=== PATIENT | female | born 1995 | race Hispanic/Latino ===

== ENCOUNTER 2018-04-27 15:42 | Emergency (ER) | payer OTHER ==
--- OUTSIDE RECORDS SUMMARY | 2018-04-27 15:44 | XMS REPORT ---
:1995 Author Organization eClinicalWorks Care Team Providers Name Role Phone Amelia Gibbons Provider Role Unavailable Allergies, Adverse Reactions, Alerts Substance Reaction Event Type N.K.D.A. Info Not Available Non Drug Allergy Problems Problem Type Condition Code Onset Dates Condition Status Assessment Obesity (BMI 30.0-34.9) E66.9 Active Assessment Hypercalcemia E83.52 Active Assessment Vitamin D deficiency E55.9 Active Problem Obesity (BMI 30.0-34.9) E66.9 Active Problem Hypercalcemia E83.52 Active Problem Vitamin D deficiency E55.9 Active Assessment Hyperlipidemia, unspecified E78.5 Active hyperlipidemia type Assessment Elevated LFTs R94.5 Active Problem Hyperlipidemia, unspecified E78.5 Active hyperlipidemia type Problem Elevated LFTs R94.5 Active Medications Medication Code Code Instructions Start End Status Dosage System Date Date Gemfibrozil [facility] 22602297111 600 MG Orally Active 1 tablet Twice a day Nizoral [facility] 91159006686 2 % Externally Active not defined Atorvastatin ND 93754432850 20 mg Orally March 15, Active 1 tablet in Calcium Once a day 2018 evening for high cholesterol Vitamin D ND 20835747876 38524 UNIT March 15Jun Active 1 capsule for (Ergocalciferol Orally Once 2017 12, low vitamin d ) weekly 2018 level Polymyxin [facility] 07735369108 59040-7.1 Active 1 drop into B-Trimethoprim UNIT/ML affected eye Ophthalmic Four times a day Results No Known Results Summary Purpose eClinicalWorks Submission
[2018-04-27] MEDS ORDERED: ONDANSETRON 4 MG/2 ML VIAL ONE (17:09)
[2018-04-27] MEDS ORDERED: DIPHENHYDRAMINE 50 MG/ML VIAL ONE (17:09)
[2018-04-27] MEDS ORDERED: MORPHINE 4 MG/ML SYR ONE (17:09)
[2018-04-27] MEDS ORDERED: NA CHLORIDE 0.9% 1,000 ML ONE (17:09)
[2018-04-27 17:30] LABS: Absolute Lymphocytes (CBC) 1.7 K/uL (0.7-4.9); Absolute Monocytes 0.4 K/uL (0.1-1.3); Absolute Neutrophil 3.8 K/uL (1.8-8.0); Basophils % 0.3 % (0-1.3); Eosinophils % 1.1 % (0-4.4); Hematocrit 47.3 % (36.0-45.0); Lymphocytes % 28.3 % (15.3-44.8); MCH 28.5 pg (27.0-35.0); MCV 87.5 fL (80-100); MPV 9.5 fL (7.6-11.3); RBC Red Blood Cell Count 5.41 M/uL (3.86-4.86)
[2018-04-27 17:36] LABS: Albumin 4.5 g/dL (3.4-5.0); Bilirubin Direct 0.2 mg/dL (0-0.2); Bilirubin Total 0.8 mg/dL (0.2-1.0); Potassium 3.6 mmol/L (3.5-5.1); Protein, Total 8.5 g/dL (6.4-8.2)
--- NOTE | 2018-04-27 19:36 | RAD REPORT ---
EXAM DESCRIPTION: CTAbdomen Pelvis W Contrast - 04/27/2018 7:16 pm CLINICAL HISTORY: Abdominal pain. lower abdomen pain COMPARISON: Abdomen 1 View (KUB) dated 08/24/2017 TECHNIQUE: Biphasic CT imaging of the abdomen and pelvis was performed with 100 ml non-ionic IV cont rast. All CT scans are performed using dose optimization technique as appropriate and may include automated exposure control or mA/KV adjustment according to patient size. FINDINGS: The lung bases are clear. The liver, spleen, pancreas, adrenal glands and kidneys are within normal limits. Cholecystectomy cli ps. No bowel obstruction, free air, free fluid or abscess. Significant fecal retention is seen in the rec tosigmoid colon. Fluid-filled and mildly dilated terminal ileum is also seen. The appendix is normal. No evidence of significant lymphadenopathy. No suspicious bony findings. Endometrial canal is fluid-filled. IMPRESSION: Prominent rectosigmoid fecal retention.
--- NOTE | 2018-04-27 19:58 | EDPHYS ---
Physician Documentation [facility] Name: Kita Sunshine Age: 22 yrs Sex: Female : 1995 Arrival Date: 04/27/2018 Time: 15:52 Bed 18 Private MD: Mauri Wu HPI: 04/27 16:30 This 22 yrs old Female presents to ER via Ambulatory with complaints of cp Abdominal Pain. 16:30 The patient presents with abdominal pain in the lower abdomen. Onset: The cp symptoms/episode began/occurred yesterday. The symptoms do not radiate. Associated signs and symptoms: Pertinent positives: constipation, nausea, Pertinent negatives: diarrhea, fever, vomiting. 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 - Social history:: Smoking status: Patient/guardian denies using tobacco. - Ebola Screening: : Patient denies travel to an Ebola-affected area in the 21 days before illness onset. ROS: 16:30 Constitutional: Negative for body aches, chills, fever, poor PO intake. cp 16:30 Cardiovascular: Negative for chest pain, edema, palpitations. 16:30 Respiratory: Negative for cough, shortness of breath, wheezing. 16:30 Abdomen/GI: Positive for abdominal pain, nausea, constipation, Negative for diarrhea, anorexia. 16:30 Back: Negative for pain at rest, pain with movement, radiated pain. 16:30 Skin: Negative for cellulitis, rash. 16:30 All other systems are negative. Exam: 16:35 Constitutional: The patient appears in no acute distress, alert, awake, non-toxic, well cp developed, well nourished, uncomfortable. 16:35 Head/Face: Normocephalic, atraumatic. cp 16:35 Eyes: Periorbital structures: appear normal, Conjunctiva: normal, no exudate, no injection, Sclera: no appreciated abnormality, Lids and lashes: appear normal, bilaterally. 16:35 ENT: External ear(s): are unremarkable, Ear canal(s): are normal, clear, TM's: bulging, is not appreciated, bilaterally, dullness, bilaterally, erythema, is not appreciated, bilaterally, Nose: is normal, Mouth: Lips: moist, Oral mucosa: pink and intact, moist, Posterior pharynx: is normal, airway is patent, no erythema, no exudate. 16:35 Neck: ROM/movement: is normal, is supple, without pain, no range of motions limitations, no nuchal rigidity. 16:35 Chest/axilla: Inspection: normal, Palpation: is normal, no crepitus, no tenderness. 16:35 Cardiovascular: Rate: tachycardic, Rhythm: regular. 16:35 Respiratory: the patient does not display signs of respiratory distress, Respirations: normal, no use of accessory muscles, no retractions, no splinting, no tachypnea, labored breathing, is not present, Breath sounds: are clear throughout, no decreased breath sounds, no stridor, no wheezing. 16:35 Abdomen/GI: Inspection: abdomen appears normal, Bowel sounds: active, all quadrants, Palpation: soft, in all quadrants, moderate abdominal tenderness, in the umbilical area, right lower quadrant and left lower quadrant, rebound tenderness, is not appreciated, involuntary guarding, is not appreciated. 16:35 Back: pain, is absent, ROM is normal. 16:35 Skin: cellulitis, is not appreciated, no rash present. 16:35 Neuro: Orientation: to person, place \T\ time. Mentation: lucid, able to follow commands, Cerebellar function: is grossly normal, Motor: moves all fours, strength is normal, Sensation: is normal. Vital Signs: 16:06 BP 112 / 78; Pulse 101; Resp 18; Temp 98.8(TE); Pulse Ox 95% on R/A; Weight 79.38 kg aj1 (R); Height 5 ft. 0 in. (152.40 cm); 17:00 BP 119 / 89; Pulse 105; Resp 18; Pulse Ox 93% on R/A; em 18:16 BP 112 / 73; Pulse 88; Resp 16; Pulse Ox 99% on R/A; Pain 3/10; em 19:45 BP 99 / 76; Pulse 98; Resp 20; Pulse Ox 98% on R/A; lp1 16:06 Body Mass Index 34.18 (79.38 kg, 152.40 cm) aj1 MDM: 16:21 Patient medically screened. cp 19:53 ED course: VSS. Nurse reports patient in restroom having bowel movement. Will discharge cp to home for continued monitoring. 19:57 Data reviewed: vital signs, nurses notes, lab test result(s), radiologic studies, CT cp scan. 19:57 Counseling: I had a detailed discussion with the patient and/or guardian regarding: the cp historical points, exam findings, and any diagnostic results supporting the discharge/admit diagnosis, lab results, radiology results, to return to the emergency department if symptoms worsen or persist or if there are any questions or concerns that arise at home. Response to treatment: the patient's symptoms have markedly improved after treatment, and as a result, I will discharge patient. Special discussion: Based on the patient's Hx, exam, and Dx evaluation, there is no indication for emergent surgery or inpatient Tx. It is understood by the patient/guardian that if the Sx's persist or worsen they need to return immediately for re-evaluation. 04/27 16:32 Order name: Amylase, Serum; Complete Time: 18:15 04/27 16:32 Order name: Basic Metabolic Panel; Complete Time: 18:15 cp 04/27 16:32 Order name: CBC with Diff; Complete Time: 18:15 cp 04/27 16:32 Order name: Creatinine for Radiology; Complete Time: 18:15 cp 04/27 16:32 Order name: Hepatic Function; Complete Time: 18:15 04/27 16:32 Order name: Lipase; Complete Time: 18:15 04/27 16:32 Order name: Urine Microscopic Only 04/27 18:15 Order name: CT Abd/Pelvis - W/Contrast: no oral contrast; Complete Time: 19:41 04/27 18:47 Order name: Urine Dipstick--Ancillary (enter results) 04/27 18:47 Order name: Urine --Ancillary (enter results) 04/27 18:47 Order name: Urine Dipstick-Ancillary [facility] 04/27 18:47 Order name: Urine --Ancillary [facility] 04/27 20:07 Order name: Urine Culture [facility] 04/27 16:32 Order name: Urine Test (obtain specimen); Complete Time: 19:05 cp 04/27 16:32 Order name: IV Saline Lock; Complete Time: 18:17 cp 04/27 16:32 Order name: Labs collected and sent; Complete Time: 18:18 cp 04/27 16:32 Order name: Urine Dipstick-Ancillary (obtain specimen); Complete Time: 19:04 cp Administered Medications: 17:19 Drug: Benadryl 12.5 mg Route: IVP; Site: left antecubital; hj 18:16 Follow up: Response: No adverse reaction em 17:19 Drug: morphine 2 mg Route: IVP; Site: left antecubital; hj 18:16 Follow up: Response: No adverse reaction; Pain is decreased em 17:20 Drug: NS 0.9% 1000 ml Route: IV; Rate: 1 bolus; Site: left antecubital; hj 19:30 Follow up: IV Status: Completed infusion lp1 17:20 Drug: Zofran 4 mg Route: IVP; Site: left antecubital; hj 18:16 Follow up: Response: No adverse reaction em 19:55 CANCELLED (Physician Discretion): Fleet Enema [address] once; may repeat once cp 19:55 CANCELLED (Physician Discretion): Magnesium Citrate Liquid 300 ml PO once cp 19:55 CANCELLED (Physician Discretion): NS 0.9% 1000 ml IV at 1 bolus Per protocol; 1000 mL cp bolus 20:41 Drug: Rocephin 1 grams Route: IV; Rate: calculated rate; Site: left antecubital; lp1 20:59 Follow up: Response: No adverse reaction; IV Status: Completed infusion lp1 Disposition: 20:30 Chart complete. cp Disposition: 04/27/18 19:58 Discharged to Home. Impression: Constipation, Urinary tract infection, site not specified, Fecal impaction. - Condition is Stable. - Discharge Instructions: Constipation, Adult, Urinary Tract Infection, Adult, Fecal Impaction. - Prescriptions for Keflex 500 mg Oral Capsule - take 1 capsule by ORAL route every 12 hours for 10 days; 20 capsule. Miralax 17 gram/dose Oral - take 1 packet by ORAL route once daily for 10 days dilute powder in 8 ounces of water or juice; 10 packet. - Medication Reconciliation Form, Thank You Letter, Antibiotic Education, Prescription Opioid Use form. - Follow up: Private Physician; When: 2 - 3 days; Reason: Recheck today's complaints. - Problem is new. - Symptoms have improved. Addendum: 04/30/2018 10:34 Co-signature as Attending Physician, Mauri Yoon MD I agree with the assessment and c andrea plan of care. Signatures: Dispatcher [employer] Radha Macedo RN RN aj1 Mauri Yoon MD MD cha Pena, Laura, RN RN lp1 Soy Carrillo RN RN Mauri Villeda PA PA Roney Treviño COMPUTER FORWARDING SYSTEM MARKUP CLERK em Corrections: (The following items were deleted from the chart) 04/27 19:55 19:[address] Fleet Enema [address] once; may repeat once ordered. cp cp :55 19:50 Magnesium Citrate Liquid 300 ml PO once ordered. cp cp :55 19:50 NS 0.9% 1000 ml IV at 1 bolus Per protocol; 1000 mL bolus ordered. cp cp 19:59 19:58 04/27/2018 19:58 Discharged to Home. Impression: Constipation; Urinary tract cp infection, site not specified. Condition is Stable. Forms are Medication Reconciliation Form, Thank You Letter, Antibiotic Education, Prescription Opioid Use. Follow up: Private Physician; When: 2 - 3 days; Reason: Recheck today's complaints. Problem is new. Symptoms have improved. cp 21:00 19:59 04/27/2018 19:58 Discharged to Home. Impression: Constipation; Urinary tract lp1 infection, site not specified; Fecal impaction. Condition is Stable. Forms are Medication Reconciliation Form, Thank You Letter, Antibiotic Education, Prescription Opioid Use. Follow up: Private Physician; When: 2 - 3 days; Reason: Recheck today's complaints. Problem is new. Symptoms have improved. cp
--- NOTE | 2018-04-27 19:58 | ER ---
Nurse's Notes [facility] Name: Kita Sunshine Age: 22 yrs Sex: Female : 1995 Arrival Date: 04/27/2018 Time: 15:52 Bed 18 Private MD: Diagnosis: Constipation;Urinary tract infection, site not specified;Fecal impaction Presentation: 04/27 16:01 Presenting complaint: Mother states: "She's been constipated, I gave her Miralax aj1 yesterday but she only got a little out so today I gave docusate before we got here, but she keeps saying her stomach's hurting" Patient reports pain to umbilical area that radiates to RLQ, LLQ. Denies N/V/D. Transition of care: patient was not received from another setting of care. Onset of symptoms was April 26, 2018. Risk Assessment: Do you want to hurt yourself or someone else? Patient reports no desire to harm self or others. Initial Sepsis Screen: Does the patient meet any 2 criteria? HR > 90 bpm. No. Patient's initial sepsis screen is negative. Does the patient have a suspected source of infection? No. Patient's initial sepsis screen is negative. Care prior to arrival: None. 16:01 Method Of Arrival: Ambulatory aj1 16:01 Acuity: KAREN 3 aj1 Triage Assessment: 16:06 General: Appears in no apparent distress. uncomfortable, Behavior is calm, cooperative, aj1 appropriate for age. Pain: Complains of pain in umbilical area Pain radiates to right lower quadrant and left lower quadrant. Neuro: Level of Consciousness is awake, alert, obeys commands. Cardiovascular: Patient's skin is warm and dry. Respiratory: Airway is patent Respiratory effort is even, unlabored, Respiratory pattern is regular, symmetrical. GI: Abdomen is round Reports lower abdominal pain, constipation, Patient currently denies diarrhea, nausea, vomiting. Derm: Skin is pink, warm \\T\\ dry. normal. 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 - Social history:: Smoking status: Patient/guardian denies using tobacco. - Ebola Screening: : Patient denies travel to an Ebola-affected area in the 21 days before illness onset. Screenin:02 Abuse screen: no apparent signs noted. Nutritional screening: No deficits noted. em Tuberculosis screening: No symptoms or risk factors identified. Fall Risk None identified. Assessment: 17:00 General: Appears in no apparent distress. uncomfortable, Behavior is cooperative, em anxious. General: pt mother reports constipation, and has taken OTC meds to help but pt c/o abdominal pain, denies fever. Pain: Complains of pain in umbilical area. Neuro: Level of Consciousness is awake, alert, obeys commands, Oriented to person, place, time. Cardiovascular: Capillary refill < 3 seconds Patient's skin is warm and dry. Respiratory: Airway is patent Respiratory effort is even, unlabored, Respiratory pattern is Breath sounds are clear bilaterally. GI: Abdomen is round non-distended, Bowel sounds present X 4 quads. Abd is soft X 4 quads Abdomen is tender to palpation in umbilical area, left upper quadrant and left lower quadrant. : No signs and/or symptoms were reported regarding the genitourinary system. EENT: No signs and/or symptoms were reported regarding the EENT system. Derm: Skin is intact, Skin is pink, warm \\T\\ dry. Musculoskeletal: Range of motion: intact in all extremities. 17:05 Reassessment: Patient appears in no apparent distress at this time. pt SPO2 dropped to em 89% while pt was sleeping, placed on NC at 3 L, SPO2 94%. 17:15 Reassessment: Patient appears in no apparent distress at this time. I agree with above iw assessment by Roney Treviño LVN. 18:00 Reassessment: Patient appears in no apparent distress at this time. Patient and/or em family updated on plan of care and expected duration. Pain level reassessed. Patient is alert, oriented x 3, equal unlabored respirations, skin warm/dry/pink. Patient states feeling better. 18:55 Reassessment: Patient appears in no apparent distress at this time. Patient and/or em family updated on plan of care and expected duration. Pain level reassessed. Patient is alert, oriented x 3, equal unlabored respirations, skin warm/dry/pink. ambulated to restroom with assistance, pending CT. 19:45 Reassessment: Patient states pain to lower abdomen, assisted to bathroom, patient had lp1 large BM at this time; Provider notified. 20:13 Reassessment: Patient states feeling better. Patient states symptoms have improved. lp1 Vital Signs: 16:06 BP 112 / 78; Pulse 101; Resp 18; Temp 98.8(TE); Pulse Ox 95% on R/A; Weight 79.38 kg aj1 (R); Height 5 ft. 0 in. (152.40 cm); 17:00 BP 119 / 89; Pulse 105; Resp 18; Pulse Ox 93% on R/A; em 18:16 BP 112 / 73; Pulse 88; Resp 16; Pulse Ox 99% on R/A; Pain 3/10; em 19:45 BP 99 / 76; Pulse 98; Resp 20; Pulse Ox 98% on R/A; lp1 16:06 Body Mass Index 34.18 (79.38 kg, 152.40 cm) aj1 ED Course: 15:52 Patient arrived in ED. as 16:05 Triage completed. aj1 16:06 Arm band placed on Patient placed in waiting room, Patient notified of wait time. aj1 16:21 Mauri Villeda PA is PHCP. cp 16:21 Mauri Yoon MD is Attending Physician. cp 16:45 Roney Treviño LVN is Primary Nurse. em 17:30 No provider procedures requiring assistance completed. Initial lab(s) drawn, by me, em sent to lab. Inserted saline lock: 22 gauge in left antecubital area, using aseptic technique. Blood collected. 18:02 Patient has correct armband on for positive identification. Bed in low position. Call em light in reach. Side rails up X2. Adult w/ patient. 18:32 Radiology exam delayed due to test not completed at this time. vr 19:16 CT Abd/Pelvis - W/Contrast: no oral contrast In Process Unspecified. EDMS 19:16 CT completed. Patient tolerated procedure well. Patient moved to CT. Patient moved back mw3 from CT. 20:58 IV discontinued, No redness/swelling at site. Pressure dressing applied. lp1 Administered Medications: 17:19 Drug: Benadryl 12.5 mg Route: IVP; Site: left antecubital; hj 18:16 Follow up: Response: No adverse reaction em 17:19 Drug: morphine 2 mg Route: IVP; Site: left antecubital; hj 18:16 Follow up: Response: No adverse reaction; Pain is decreased em 17:20 Drug: NS 0.9% 1000 ml Route: IV; Rate: 1 bolus; Site: left antecubital; hj 19:30 Follow up: IV Status: Completed infusion lp1 17:20 Drug: Zofran 4 mg Route: IVP; Site: left antecubital; hj 18:16 Follow up: Response: No adverse reaction em 19:55 CANCELLED (Physician Discretion): Fleet Enema 133 ml NV once; may repeat once cp 19:55 CANCELLED (Physician Discretion): Magnesium Citrate Liquid 300 ml PO once cp 19:55 CANCELLED (Physician Discretion): NS 0.9% 1000 ml IV at 1 bolus Per protocol; 1000 mL cp bolus 20:41 Drug: Rocephin 1 grams Route: IV; Rate: calculated rate; Site: left antecubital; lp1 20:59 Follow up: Response: No adverse reaction; IV Status: Completed infusion lp1 Outcome: 19:58 Discharge ordered by MD. cp 20:59 Discharged to home ambulatory, with family. lp1 20:59 Condition: good 20:59 Discharge instructions given to mechanical system technician, Instructed on discharge instructions, follow up and referral plans. medication usage, Demonstrated understanding of instructions, follow-up care, medications, Prescriptions given X 2. 21:00 Patient left the ED. lp1 Addendum: 05/02/2018 11:39 Addendum: Culture Results: Positive urine culture. Phone call Attempt #1 Patient is s s feeling much better. Signatures: Dispatcher [employer] EDMS Radha Miller RN RN aj1 Roney Treviño, LABOUR MARKET ECONOMIST LABOUR MARKET ECONOMIST em Natasha Murillo as Carolina Patiño, Aicha Moeller RN, RN RN ss Davis, Victoria vr Pena, Laura, RN RN lp1 Soy Carrillo RN RN hj Page, Corey, PA PA cp Willis, Michelle mw3 Corrections: (The following items were deleted from the chart) 04/27 19:13 18:55 Reassessment: Patient and/or family updated on plan of care and expected em duration. Pain level reassessed. Patient is alert, oriented x 3, equal unlabored respirations, skin warm/dry/pink. ambulated to restroom with assistance, pending CT em
[2018-04-27 20:06] LABS: Urine Bacteria 20-50 /HPF (<20); Urine Culture Reflex Order REFLEXED; Urine Mucus 1+ /HPF (NONE SEEN); Urine RBC TNTC /HPF (NONE SEEN)
[2018-04-27 20:07] LABS: Urine Blood 3+ (NEG); Urine Glucose NEGATIVE (NEG); Urine Protein 1+ (NEG); Urine Specific Gravity 1.015 (1.005-1.030); Urine pH 6.5 (5.0-7.0)
[2018-04-27] MEDS ORDERED: CEFTRIAXONE/SWI 1gm 1 GM/10 ML SYR ONE (20:20)
== END 2018-04-27 21:00 | disposition home or self-care (01) ==
LOC: ER 15:42
DX: K59.00 Constipation, unspecified (principal); N39.0 Urinary tract infection, site not specified; K56.41 Fecal impaction; E78.5 Hyperlipidemia, unspecified; F79 Unspecified intellectual disabilities
CPT/HCPCS: 36415; 74177; 80048; 80076; 81003; 81015; 81025; 82150; 83690; 85025; 87077; 87086; 87088; 87186; 96361; 96365; 96375; 99284; J0696; J2405; J7030; Q9967

== ENCOUNTER 2019-04-29 23:53 | Emergency (ER) | payer OTHER ==
--- OUTSIDE RECORDS SUMMARY | 2019-04-29 23:56 | XMS REPORT ---
:1995 Author Organization eClinicalWorks Care Team Providers Name Role Phone Amelia Gibbons Provider Role Unavailable Allergies, Adverse Reactions, Alerts Substance Reaction Event Type N.K.D.A. Info Not Available Non Drug Allergy Problems Problem Type Condition Code Onset Dates Condition Status Problem Hypercalcemia E83.52 Active Problem Elevated LFTs R94.5 Active Problem Hypersomnia G47.10 Active Problem Abdominal pain, unspecified R10.9 Active abdominal location Problem Snoring R06.83 Active Problem Vitamin D deficiency E55.9 Active Problem Obesity (BMI 30.0-34.9) E66.9 Active Problem Difficulty sleeping G47.9 Active Problem Hyperlipidemia, unspecified E78.5 Active hyperlipidemia type Assessment Vitamin D deficiency E55.9 Active Assessment Elevated LFTs R94.5 Active Assessment Depression screening Z13.31 Active Assessment Obesity (BMI 30.0-34.9) E66.9 Active Assessment Hyperlipidemia, unspecified E78.5 Active hyperlipidemia type Medications Medication Code Code Instructions Start End Status Dosage System Date Date Polymyxin [facility] 36408183611 34815-1.1 Active 1 drop into B-Trimethoprim UNIT/ML affected eye Ophthalmic Four times a day Gemfibrozil [facility] 67424854803 600 MG Orally Active 1 tablet Twice a day Nizoral [facility] 30475586904 2 % Externally Active not defined Vitamin D [facility] 32748504327 34231 UNIT Active 1 capsule (Ergocalciferol Orally Once ) weekly Atorvastatin [facility] 23575163344 20 mg Orally March 15, Active 1 tablet in Calcium Once a day 2018 evening for high cholesterol Results No Known Results Summary Purpose eClinicalWorks Submission
--- OUTSIDE RECORDS SUMMARY | 2019-04-29 23:56 | XMS REPORT ---
:1995 Author Organization eClinicalWorks Care Team Providers Name Role Phone Amelia Gibbons Provider Role Unavailable Allergies, Adverse Reactions, Alerts Substance Reaction Event Type N.K.D.A. Info Not Available Non Drug Allergy Problems Problem Type Condition Code Onset Dates Condition Status Assessment Vitamin D deficiency E55.9 Active Assessment Hyperlipidemia, unspecified E78.5 Active hyperlipidemia type Assessment Elevated LFTs R94.5 Active Assessment Obesity (BMI 30.0-34.9) E66.9 Active Problem Hyperlipidemia, unspecified E78.5 Active hyperlipidemia type Problem Elevated LFTs R94.5 Active Problem Difficulty sleeping G47.9 Active Problem Hypercalcemia E83.52 Active Problem Vitamin D deficiency E55.9 Active Problem Obesity (BMI 30.0-34.9) E66.9 Active Medications Medication Code Code Instructions Start End Status Dosage System Date Date Vitamin D3 [facility] 56171467345 23054 UNIT Jul 23Nov Active 1 capsule Orally 2017, capsule [email or web address] Atorvastatin ND 84140209739 20 mg Orally March 15, Active 1 tablet in Calcium Once a day 2017 evening for high cholesterol Polymyxin [facility] 11582860338 48499-1.1 Active 1 drop into B-Trimethoprim UNIT/ML affected eye Ophthalmic Four times a day Nizoral [facility] 19036031957 2 % Externally Active not defined Vitamin D [facility] 64413999687 11411 UNIT Active 1 capsule (Ergocalciferol Orally Once ) weekly Gemfibrozil [facility] 73888262966 600 MG Orally Active 1 tablet Twice a day Results No Known Results Summary Purpose eClinicalWorks Submission
--- OUTSIDE RECORDS SUMMARY | 2019-04-29 23:56 | XMS REPORT ---
:1995 Author Organization eClinicalWorks Care Team Providers Name Role Phone Amelia Gibbons Provider Role Unavailable Allergies, Adverse Reactions, Alerts Substance Reaction Event Type N.K.D.A. Info Not Available Non Drug Allergy Problems Problem Type Condition Code Onset Dates Condition Status Assessment Elevated LFTs R94.5 Active Assessment Hyperlipidemia, unspecified E78.5 Active hyperlipidemia type Assessment Difficulty sleeping G47.9 Active Assessment Obesity (BMI 30.0-34.9) E66.9 Active Assessment Vitamin D deficiency E55.9 Active Assessment Hypercalcemia E83.52 Active Problem Hyperlipidemia, unspecified E78.5 Active hyperlipidemia type Problem Elevated LFTs R94.5 Active Problem Difficulty sleeping G47.9 Active Problem Hypercalcemia E83.52 Active Problem Vitamin D deficiency E55.9 Active Problem Obesity (BMI 30.0-34.9) E66.9 Active Medications Medication Code Code Instructions Start End Status Dosage System Date Date Nizoral [facility] 67061944708 2 % Externally Active not defined Atorvastatin [facility] 76137838402 20 mg Orally March 15, Active 1 tablet in Calcium Once a day 2018 evening for high cholesterol Polymyxin [facility] 63633947237 30397-9.1 Active 1 drop into B-Trimethoprim UNIT/ML affected eye Ophthalmic Four times a day Vitamin D [facility] 90902073289 24380 UNIT Active 1 capsule (Ergocalciferol Orally Once ) weekly Gemfibrozil [facility] 59231296067 600 MG Orally Active 1 tablet Twice a day Results No Known Results Summary Purpose eClinicalWorks Submission
--- OUTSIDE RECORDS SUMMARY | 2019-04-29 23:56 | XMS REPORT ---
[...] Assessment Vitamin D deficiency E55.9 Active Assessment Snoring R06.83 Active Assessment Elevated LFTs R94.5 Active Assessment Obesity (BMI 30.0-34.9) E66.9 Active Assessment Abdominal pain, unspecified R10.9 Active abdominal location Assessment Hypersomnia G47.10 Active Assessment Hyperlipidemia, unspecified E78.5 Active hyperlipidemia type Medications Medication Code Code Instructions Start End Status Dosage System Date Date Polymyxin [facility] 49773735735 27670-3.1 Active 1 drop into B-Trimethoprim UNIT/ML affected eye Ophthalmic Four times a day Nizoral [facility] 86201198586 2 % Externally Active not defined Gemfibrozil [facility] 37951681460 600 MG Orally Active 1 tablet Twice a day Vitamin D [facility] 50903660850 04609 UNIT Active 1 capsule (Ergocalciferol Orally Once ) weekly Atorvastatin [facility] 66598504276 20 mg Orally March 15, Active 1 tablet in Calcium Once a day 2018 evening for high cholesterol Results No Known Results Summary Purpose eClinicalWorks Submission
--- OUTSIDE RECORDS SUMMARY | 2019-04-29 23:56 | XMS REPORT ---
:1995 Author Organization eClinicalWorks Care Team Providers Name Role Phone Amelia Gibbons Provider Role Unavailable Allergies No Known Allergies Problems Problem Type Condition Code Onset Dates Condition Status Problem Hypercalcemia E83.52 Active Problem Elevated LFTs R94.5 Active Assessment Hyperlipidemia, unspecified E78.5 Active hyperlipidemia type Problem Hypersomnia G47.10 Active Problem Abdominal pain, unspecified R10.9 Active abdominal location Problem Snoring R06.83 Active Problem Vitamin D deficiency E55.9 Active Problem Obesity (BMI 30.0-34.9) E66.9 Active Problem Difficulty sleeping G47.9 Active Problem Hyperlipidemia, unspecified E78.5 Active hyperlipidemia type Medications Medication Code Code Instructions Start End Status Dosage System Date Date Gemfibrozil [facility] 13328825388 600 MG Orally Active 1 tablet Twice a day Atorvastatin [facility] 41284915718 20 MG Orally March 15, Active 1 tablet in Calcium Once a day 2018 evening for high cholesterol Results No Known Results Summary Purpose eClinicalWorks Submission
--- NOTE | 2019-04-30 00:50 | ER ---
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 Transition of ak1 care: patient was not received from another setting of care. Onset of symptoms is unknown. Risk Assessment: Do you want to hurt yourself or someone else? Patient reports no desire to harm self or others. Initial Sepsis Screen: Does the patient meet any 2 criteria? No. Patient's initial sepsis screen is negative. Does the patient have a suspected source of infection? No. Patient's initial sepsis screen is negative. Care prior to arrival: None. 00:15 Method Of Arrival: Ambulatory ak1 00:15 Acuity: KAREN 4 ak1 Triage Assessment: 00:16 General: Appears in no apparent distress. Behavior is calm, cooperative. Pain: ak1 Complains of pain in mouth. 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 Neuro: Level of Consciousness is awake, alert, obeys commands, Oriented to person, place, time, situation, Moves all extremities. Gait is steady. Cardiovascular: No deficits noted. Respiratory: No deficits noted. GI: No signs and/or symptoms were reported involving the gastrointestinal system. : No signs and/or symptoms were reported regarding the genitourinary system. Derm: No signs and/or symptoms reported regarding the dermatologic system. Musculoskeletal: No signs and/or symptoms reported regarding the musculoskeletal system. 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 - Social history:: Smoking status: Patient/guardian denies using tobacco. - Ebola Screening: : No symptoms or risks identified at this time. Screenin:18 Abuse screen: Denies threats or abuse. Denies injuries from another. Nutritional ak1 screening: No deficits noted. Tuberculosis screening: No symptoms or risk factors identified. Fall Risk None identified. Assessment: 00:42 Reassessment: Patient appears in no apparent distress at this time. No changes from ak1 previously documented assessment. Patient and/or family updated on plan of care and expected duration. Pain level reassessed. Patient is alert, oriented x 3, equal unlabored respirations, skin warm/dry/pink. see triage assessment. 00:55 General: Appears in no apparent distress. pt with steady gait at discharged. pt and ak1 mother educated on comfort measures to use at home until pt can get in to see a dentist . Vital Signs: 00:14 BP 121 / 79; Pulse 64; Resp 16; Temp 97.6(TE); Pulse Ox 97% on R/A; Weight 86.18 kg ak1 (R); Height 5 ft. 0 in. (152.40 cm) (R); Pain 4/10; 00:56 BP 120 / 78; Pulse 83; Resp 16; Pulse Ox 100% on R/A; ak1 00:14 Body Mass Index 37.11 (86.18 kg, 152.40 cm) ak1 ED Course: 04/29 23:59 Patient arrived in ED. es 07 00:00 Amelia Gibbons MD is Private Physician. es 00:10 Loki Forde MD is Attending Physician. tw4 00:14 Maame Saleh, RN is Primary Nurse. ak1 00:16 Triage completed. ak1 00:18 Arm band placed on Patient placed in an exam room, on a stretcher, on pulse oximetry, ak1 Patient notified of wait time. 00:18 Patient has correct armband on for positive identification. Bed in low position. Call ak1 light in reach. Side rails up X 1. Adult w/ patient. Pulse ox on. NIBP on. 00:38 Amelia Gibbons MD is Referral Physician. tw4 00:42 No provider procedures requiring assistance completed. Patient did not have IV access ak1 during this emergency room visit. Administered Medications: 00:33 Drug: Collbran 5 mg-325 mg 1 tabs Route: PO; lp1 00:55 Follow up: Response: No adverse reaction ak1 Outcome: 00:39 Discharge ordered by . tw4 00:42 Condition: stable ak1 00:55 Discharged to home ambulatory, with family. ak1 00:55 Discharge instructions given to patient, family, Instructed on discharge instructions, follow up and referral plans. no drinking with medication, no driving heavy equipment, medication usage, Demonstrated understanding of instructions, follow-up care, medications, Prescriptions given X 2. 00:57 Patient left the ED. ak1 Signatures: Paula Jenkins Laura, RN RN lp1 Maame Saleh RN RN ak1 Loki Forde MD MD tw4
[2019-04-30] MEDS ORDERED: HYDROCODONE/APAP 5/325 MG TAB ONE (00:51)
--- NOTE | 2019-04-30 00:51 | EDPHYS ---
Physician Documentation [facility] Name: Kita Sunshine Age: 23 yrs Sex: Female : 1995 Arrival Date: 04/29/2019 Time: 23:59 Bed 6 Private MD: Amelia Gibbons ED Physician Loki Forde HPI: 04/30 00:32 This 23 yrs old Female presents to ER via Ambulatory with complaints of tw4 Toothache. 00:32 The patient presents with broken tooth/teeth. The problem is located in the upper right tw4 first molar. Onset: The symptoms/episode began/occurred today. Duration: The symptoms are continuous, and are unchanged since they started. Modifying factors: The symptoms are alleviated by nothing, the symptoms are aggravated by. The patient has not experienced similar symptoms in the past. 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 - Social history:: Smoking status: Patient/guardian denies using tobacco. - Ebola Screening: : No symptoms or risks identified at this time. ROS: 00:32 Constitutional: Negative for fever, chills, and weight loss, Eyes: Negative for injury, tw4 pain, redness, and discharge, Cardiovascular: Negative for chest pain, palpitations, and edema, Respiratory: Negative for shortness of breath, cough, wheezing, and pleuritic chest pain, Abdomen/GI: Negative for abdominal pain, nausea, vomiting, diarrhea, and constipation, Back: Negative for injury and pain, MS/Extremity: Negative for injury and deformity. 00:32 ENT: Positive for dental pain, Negative for ear pain, hearing loss, pulling at ears, nasal discharge, rhinorrhea. Exam: 00:32 Constitutional: This is a well developed, well nourished patient who is awake, alert, tw4 and in no acute distress. Head/Face: Normocephalic, atraumatic. 00:32 ENT: Dental exam: fractured teeth are noted, specifically the upper right first molar (#3). Vital Signs: 00:14 BP 121 / 79; Pulse 64; Resp 16; Temp 97.6(TE); Pulse Ox 97% on R/A; Weight 86.18 kg ak1 (R); Height 5 ft. 0 in. (152.40 cm) (R); Pain 4/10; 00:56 BP 120 / 78; Pulse 83; Resp 16; Pulse Ox 100% on R/A; ak1 00:14 Body Mass Index 37.11 (86.18 kg, 152.40 cm) ak1 MDM: 00:10 Patient medically screened. tw4 00:32 Differential diagnosis: dental caries, dental abscess. Data reviewed: vital signs, tw4 nurses notes. Counseling: I had a detailed discussion with the patient and/or guardian regarding: the historical points, exam findings, and any diagnostic results supporting the discharge/admit diagnosis. Medication response: norco. Response to treatment: the patient's symptoms have markedly improved after treatment, and as a result, I will discharge patient. Special discussion: I discussed with the patient/guardian in detail that at this point there is no indication for admission to the hospital. It is understood, however, that if the symptoms persist or worsen the patient needs to return immediately for re-evaluation. Administered Medications: 00:33 Drug: Acworth 5 mg-325 mg 1 tabs Route: PO; lp1 00:55 Follow up: Response: No adverse reaction ak1 Disposition: 04/30/19 00:39 Discharged to Home. Impression: Dental caries. - Condition is Stable. - Discharge Instructions: Dental Caries, Adult, Dental Pain. - Prescriptions for Ibuprofen 800 mg Oral Tablet - take 1 tablet by ORAL route every 8 hours As needed take with food; 30 tablet. Tylenol- Codeine #3 300-30 mg Oral Tablet - take 2 tablet by ORAL route every 6 hours As needed; 6 tablet. - Medication Reconciliation Form, Thank You Letter, Antibiotic Education, Prescription Opioid Use form. - Follow up: Amelia Gibbons MD; When: Upon discharge from the Emergency Department; Reason: If symptoms return, Recheck today's complaints, Continuance of care. - Problem is new. - Symptoms have improved. Signatures: Betty Bertrand RN RN lp1 Maame Saleh RN RN ak1 Loki Forde MD MD tw4 Corrections: (The following items were deleted from the chart) 00:57 00:39 04/30/2019 00:39 Discharged to Home. Impression: Dental caries. Condition is ak1 Stable. Forms are Medication Reconciliation Form, Thank You Letter, Antibiotic Education, Prescription Opioid Use. Follow up: Amelia Gibbons; When: Upon discharge from the Emergency Department; Reason: If symptoms return, Recheck today's complaints, Continuance of care. Problem is new. Symptoms have improved. tw4
== END 2019-04-30 00:57 | disposition home or self-care (01) ==
LOC: ER 23:53
DX: K02.9 Dental caries, unspecified (principal); E78.5 Hyperlipidemia, unspecified; F79 Unspecified intellectual disabilities
CPT/HCPCS: 99283

== ENCOUNTER 2020-04-13 15:29 | Emergency (ER) | payer OTHER ==
--- OUTSIDE RECORDS SUMMARY | 2020-04-13 16:52 | XMS REPORT | Continuity of Care Document ---
:1995 Author Organization [facility] t Address [address] [place] [address] Care Team Providers Name Role Phone Unavailable Unavailable Unavailable Problems Condition Condition Condition Status Onset Resolution Last Treating Co mments Source Name Details Category Date Date Treatment Clinician Date Obesity Obesity Problem Active [facility] (BMI (BMI [facility] - 30.0-34.9) 30.0-34.9) [facility] Hypercalce Hypercalce Problem Active [facility] nahun [facility]un [facility] Vitamin D Vitamin D Diagnosis Active [facility] deficiency deficiency [facility] Hyperlipid Hyperlipid Diagnosis Active [facility] emia, emia, [facility] - unspecifie unspecifie [facility] d d l hyperlipid hyperlipid Ou tpati emia type emia type ent Clinics Elevated Elevated Diagnosis Active [facility] LFTs LFTs [facility] Difficulty Difficulty Problem Active [facility] sleeping sleeping [facility] Hypersomni Hypersomni Problem Active [facility] Abdominal Abdominal Problem Active [facility] pain, pain, [facility] - unspecifie unspecifie Me mor[facility] d d l abdominal abdominal Outp ati location location ent Clinics Snoring Snoring Problem Active [facility]ics Intellectu Intellectu Problem Active [facility] disability disability [facility] Pain in Pain in Problem Active [facility] right right [facility] - ankle and ankle and Manuel jc joints of joints of l right foot right foot Ou tpati ent Clinics Pain in Pain in Problem Active [facility] left ankle left ankle [facility] - and joints and joints Me moria of left of left l foot foot Outpati ent Clinics Back pain, Back pain, Problem Active [facility] unspecifie unspecifie [facility] - d back d back Memoria location, location, l unspecifie unspecifie Ou tpati d back d back ent pain pain Clinics laterality laterality , , unspecifie unspecifie d d chronicity chronicity Allergies, Adverse Reactions, Alerts This patient has no known allergies or adverse reactions. Medications Ordered Filled Start Stop Current Ordering Indication Dosage Frequency Signature Comments Components Source Medication Medication Date Date Medication? Clinician (SIG) Name Name Atorjuan manuel Atorlizztati Yes Amelia [address] [facility] n Calcium n Calcium 6-14 Millender in evening [facility] - 00:00: for high Memoria 00 cholestero l l Outpati ent Clinics Gemfibrozil Gemfibrozil Yes Amelia [address] [facility] Polymyxin Polymyxin Yes Amelia [address] B-Trimethop B-Trimethop [facility] into [facility] affected [facility] Nizoral Nizoral Yes Amelia not [facility] Mill[facility] defined [facility] Vitamin D Vitamin D Yes Amelia [address] [facility] (Ergocalcif (Ergocalcif Millender [facility] - deny) deny) [facility] Immunizations Ordered Filled Immunization Date Status Comments Sourc e Immunization Name Name Flucelvax - single Flucelvax - single 2019-07-[address] [facility] - dose syringe dose syringe 00:00:00 [facility] Outpatient [facility] Procedures This patient has no known procedures. Encounters Start End Encounter Admission Attending Care Care Encounter Source Date/Time Date/Time Type Type Clinicians Facility Department ID 2020-01-16 2020-01-16 Outpatient Lesli [facility] [id number] [facility] 11:15:00 11:15:00 [facility] Medicine Medicine Outpati ent Clinics 2019-10-28 2019-10-28 [place] [id number] [facility] 18:26:00 18:26:00 [facility] Medicine Medicine Outpati ent Clinics 2019-10-17 2019-10-17 Outpatient Lesli [facility] [id number] [facility] 15:45:00 15:45:00 [facility] Medicine Medicine Outpati ent Clinics 2019-07-04 2019-07-04 [facility] [id number] [facility] 11:00:00 11:00:00 t [facility] Medicine Outpati ent Clinics 2019-05-02 2019-05-02 [facility] [id number] [facility] 14:09:00 14:09:00 t [facility] Medicine Outpati ent Clinics 2019-05-02 2019-05-02 [facility] [id number] [facility] 09:25:00 09:25:00 t [facility] Medicine Outpati ent Clinics 2019-04-29 2019-04-29 [facility] [id number] [facility] 13:31:00 13:31:00 t [facility] Medicine Outpati ent Clinics 2019-04-02 2019-04-02 [facility] [id number] 10:53:00 10:53:00 t [facility] Medicine Outpati ent Clinics 2019-03-21 2019-03-21 [facility] [id number] [facility] 13:20:00 13:20:00 t [facility] Medicine Outpati ent Clinics 2018-12-19 2018-12-19 [facility] [id number] [facility] 13:15:00 13:15:00 t [facility] Medicine Outpati ent Clinics 2018-09-20 2018-09-20 [facility] [id number] [facility] 15:30:00 15:30:00 t [facility] Medicine Outpati ent Clinics 2018-06-15 2018-06-15 [facility] [id number] [facility] 13:15:00 13:15:00 t [facility] Medicine Outpati ent Clinics 2018-03-15 2018-03-15 [facility] [id number] [facility] 16:00:00 16:00:00 [facility] l Medicine Outpati ent Clinics Results This patient has no known results.
--- OUTSIDE RECORDS SUMMARY | 2020-04-13 16:52 | XMS REPORT ---
:1995 Author Organization eClinicalWorks Care Team Providers Name Role Phone Amelia Gibbons Provider Role Unavailable Allergies, Adverse Reactions, Alerts Substance Reaction Event Type N.K.D.A. Info Not Available Non Drug Allergy Problems Problem Type Condition Code Onset Dates Condition Statu s Problem Vitamin D deficiency E55.9 Active Problem Difficulty sleeping G47.9 Active Problem Hyperlipidemia, unspecified E78.5 Active hyperlipidemia type Problem Pain in right ankle and joints of M25.571 Active right foot Problem Pain in left ankle and joints of M25.572 Active left foot Problem Intellectual disability F79 Acti ve Problem Snoring R06.83 Active Problem Abdominal pain, unspecified R10.9 Active abdominal location Problem Back pain, unspecified back M54.9 Active location, unspecified back pain laterality, unspecified chronicity Problem Hypersomnia G47.10 Active Assessment Obesity (BMI 30.0-34.9) E66.9 Acti ve Assessment Vitamin D deficiency E55.9 Active Problem Elevated LFTs R94.5 Active Assessment Elevated LFTs R94.5 Active Problem Hypercalcemia E83.52 Active Assessment Hyperlipidemia, unspecified E78.5 Active hyperlipidemia type Problem Obesity (BMI 30.0-34.9) E66.9 Acti ve Medications Medication Code Code Instructions Start End Status Dosage System Date Date Gemfibrozil [facility] 91178705685 600 MG Orally Active 1 tablet Twice a day Nizoral [facility] 27033496598 2 % Externally Active not d efined Polymyxin [facility] 83557359233 15111-9.1 Active 1 drop i nto B-Trimethoprim UNIT/ML affected eye Ophthalmic Four times a day Atorvastatin [facility] 82617331007 20 MG Orally Active 1 tablet in Calcium Once a day evening for high cholesterol Vitamin D [facility] 39657466062 45378 UNIT Active 1 capsu le (Ergocalciferol Orally Once ) weekly Results No Known Results Summary Purpose eClinicalWorks Submission
--- NOTE | 2020-04-13 18:23 | RAD REPORT ---
EXAM DESCRIPTION: RAD - Chest Single View - 04/13/2020 6:15 pm CLINICAL HISTORY: COUGH Chest pain. COMPARISON: <Comparisons> FINDINGS: Portable technique limits examination quality. The lungs are grossly clear. The heart is normal in size. No displaced fractures. IMPRESSION: No acute intrathoracic process suspected.
[2020-04-13] MEDS ORDERED: levoFLOXacin 750 MG TAB ONE (19:07)
[2020-04-13 19:10] LABS: Urine Blood 3+ (NEG); Urine Glucose TRACE (NEG); Urine Protein 2+ (NEG); Urine Specific Gravity >1.030 (1.005-1.030); Urine pH 5.5 (5.0-7.0)
--- NOTE | 2020-04-13 19:24 | ER ---
Nurse's Notes [facility] Name: Kita Sunshine Age: 24 yrs Sex: Female : 1995 Arrival Date: 04/13/2020 Time: 15:36 Bed 20 Private MD: Diagnosis: Vomiting;Urinary tract infection, site not specified Presentation: 04/13 15:51 Chief complaint: Patient states: Abdominal pain with N/V since yesterday. Fever 100 at ll1 home. Coronavirus screen: Proceed with normal triage. Patient denies a cough. Patient denies shortness of breath or difficulty breathing. Patient denies measured and/or subjective temperature greater than 100.4F prior to today's visit. Patient denies travel on a cruise ship or to a country the [facility] currently lists as an affected area. Patient denies contact with known and/or suspected case of COVID-19. Ebola Screen: Patient denies travel to an Ebola-affected area in the 21 days before illness onset. Initial Sepsis Screen: Does the patient meet any 2 criteria? HR > 90 bpm. No. Patient's initial sepsis screen is negative. Risk Assessment: Do you want to hurt yourself or someone else? Patient reports no desire to harm self or others. Onset of symptoms was April 12, 2020. 15:51 Method Of Arrival: Ambulatory ll1 15:51 Acuity: KAREN 2 ll1 Historical: - Allergies: 15:52 No Known Drug Allergies; ll1 - PMHx: 15:52 Hyperlipidemia; Intellectually disabled; ll1 - PSHx: 15:52 Cholecystectomy; ll1 - Immunization history:: Flu vaccine is not up to date. - Social history:: Smoking status: Patient denies any tobacco usage or history of. Patient/guardian denies using alcohol, street drugs, tobacco products. - Family history:: not pertinent. Vital Signs: 15:51 BP 94 / 67; Pulse 108; Resp 18; Temp 99.1; Pulse Ox 92% ; Pain 4/10; ll1 18:13 BP 112 / 57; Pulse 112; Resp 18; Temp 99.0; Pulse Ox 96% ; ah ED Course: 15:36 Patient arrived in ED. mr 15:52 Triage completed. ll1 15:53 Arm band placed on Patient notified of wait time. ll1 17:06 Mauri Yoon MD is Attending Physician. [facility] 17:10 Desi Varela, RN is Primary Nurse. 18:15 Chest Single View XRAY In Process Unspecified. EDMD Administered Medications: 19:00 Drug: LevOfloxacin 750 mg Route: PO; 22:03 Follow up: Response: No adverse reaction 22:04 Follow up: Response: No adverse reaction Outcome: 19:24 Discharge ordered by . [facility] 19:24 Patient left the ED. Signatures: Dispatcher [employer] EDMD Mauri Yoon MD MD cha Rivera, Mary mr Smirch, Shelby, RN RN Desi Varela, RN RN Enmanuel Pate RN RN ll1
--- NOTE | 2020-04-13 19:24 | EDPHYS ---
Physician Documentation [facility] Name: Kita Sunshine Age: 24 yrs Sex: Female : 1995 Arrival Date: 04/13/2020 Time: 15:36 Bed 20 Private MD: Mauri Wu HPI: 04/13 17:53 This 24 yrs old Female presents to ER via Ambulatory with complaints of victor hugo Abdominal Pain, Vomiting, Fever. 17:53 The patient presents to the emergency department with nausea, vomiting, 1 times since [facility] the onset of symptoms. Onset: The symptoms/episode began/occurred 1 day(s) ago. Possible causes: unknown. Associated signs and symptoms: The patient has no apparent associated signs or symptoms. Severity of symptoms: At their worst the symptoms were mild in the emergency department the symptoms have resolved. The patient has not experienced similar symptoms in the past. Historical: - Allergies: 15:52 No Known Drug Allergies; ll1 - PMHx: 15:52 Hyperlipidemia; Intellectually disabled; ll1 - PSHx: 15:52 Cholecystectomy; ll1 - Immunization history:: Flu vaccine is not up to date. - Social history:: Smoking status: Patient denies any tobacco usage or history of. Patient/guardian denies using alcohol, street drugs, tobacco products. - Family history:: not pertinent. ROS: 17:53 Constitutional: Negative for fever, chills, and weight loss, Eyes: Negative for injury, victor hugo pain, redness, and discharge, ENT: Negative for injury, pain, and discharge, Neck: Negative for injury, pain, and swelling, Cardiovascular: Negative for chest pain, palpitations, and edema, Respiratory: Negative for shortness of breath, cough, wheezing, and pleuritic chest pain, Back: Negative for injury and pain, : Negative for injury, bleeding, discharge, and swelling, MS/Extremity: Negative for injury and deformity, Skin: Negative for injury, rash, and discoloration, Neuro: Negative for headache, weakness, numbness, tingling, and seizure, Psych: Negative for depression, anxiety, suicide ideation, homicidal ideation, and hallucinations, Allergy/Immunology: Negative for hives, rash, and allergies, Endocrine: Negative for neck swelling, polydipsia, polyuria, polyphagia, and marked weight changes, Hematologic/Lymphatic: Negative for swollen nodes, abnormal bleeding, and unusual bruising. 17:53 Abdomen/GI: Positive for nausea and vomiting. Exam: 17:53 Constitutional: This is a well developed, well nourished patient who is awake, alert, victor hugo and in no acute distress. Head/Face: Normocephalic, atraumatic. Eyes: Pupils equal round and reactive to light, extra-ocular motions intact. Lids and lashes normal. Conjunctiva and sclera are non-icteric and not injected. Cornea within normal limits. Periorbital areas with no swelling, redness, or edema. ENT: Nares patent. No nasal discharge, no septal abnormalities noted. Tympanic membranes are normal and external auditory canals are clear. Oropharynx with no redness, swelling, or masses, exudates, or evidence of obstruction, uvula midline. Mucous membranes moist. Neck: Trachea midline, no thyromegaly or masses palpated, and no cervical lymphadenopathy. Supple, full range of motion without nuchal rigidity, or vertebral point tenderness. No Meningismus. Chest/axilla: Normal chest wall appearance and motion. Nontender with no deformity. No lesions are appreciated. Cardiovascular: Regular rate and rhythm with a normal S1 and S2. No gallops, murmurs, or rubs. Normal PMI, no JVD. No pulse deficits. Respiratory: Lungs have equal breath sounds bilaterally, clear to auscultation and percussion. No rales, rhonchi or wheezes noted. No increased work of breathing, no retractions or nasal flaring. Back: No spinal tenderness. No costovertebral tenderness. Full range of motion. Skin: Warm, dry with normal turgor. Normal color with no rashes, no lesions, and no evidence of cellulitis. MS/ Extremity: Pulses equal, no cyanosis. Neurovascular intact. Full, normal range of motion. Neuro: Awake and alert, GCS 15, oriented to person, place, time, and situation. Cranial nerves II-XII grossly intact. Motor strength 5/5 in all extremities. Sensory grossly intact. Cerebellar exam normal. Normal gait. Psych: Awake, alert, with orientation to person, place and time. Behavior, mood, and affect are within normal limits. 17:53 Abdomen/GI: Inspection: abdomen appears normal, Bowel sounds: normal, Palpation: abdomen is soft and non-tender, soft, nontender, in all quadrants, Liver: no appreciated palpable abnormalities, Hernia: not appreciated. Vital Signs: 15:51 BP 94 / 67; Pulse 108; Resp 18; Temp 99.1; Pulse Ox 92% ; Pain 4/10; ll1 18:13 BP 112 / 57; Pulse 112; Resp 18; Temp 99.0; Pulse Ox 96% ; ah MDM: 17:06 Patient medically screened. [facility] 17:55 Data reviewed: vital signs, nurses notes, lab test result(s), radiologic studies, plain victor hugo films. 18:52 Differential diagnosis: Nonspecific abd pain, viral gastroenteritis, gastroenteritis. 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 Counseling: I had a detailed discussion with the patient and/or guardian regarding: the historical points, exam findings, and any diagnostic results supporting the discharge/admit diagnosis, lab results, the need for outpatient follow up, for definitive care, a family practitioner. 18:52 ED course: no toxic, well hydrated , abd benign, lungs ctab, no homans , no cords. [facility] 04/13 18:35 Order name: Urine Dipstick--Ancillary (enter results) [facility] 04/13 18:35 Order name: Urine --Ancillary (enter results) [facility] 04/13 17:53 Order name: Chest Single View XRAY [facility] 04/13 17:53 Order name: Urine Dipstick-Ancillary (obtain specimen); Complete Time: 18:33 [facility] 04/13 17:53 Order name: Urine Test (obtain specimen); Complete Time: 18:33 [facility] 04/13 17:53 Order name: PO challenge; Complete Time: 19:00 [facility] Administered Medications: 19:00 Drug: LevOfloxacin 750 mg Route: PO; 22:03 Follow up: Response: No adverse reaction 22:04 Follow up: Response: No adverse reaction Disposition: 04/13/20 19:24 Discharged to Home. Impression: Vomiting, Urinary tract infection, site not specified. - Condition is Stable. - Discharge Instructions: Nausea and Vomiting, Adult, Urinary Tract Infection, Adult, Nausea and Vomiting, Adult, [id number], Urinary Tract Infection, Adult, [id number]. - Prescriptions for Zofran 4 mg Oral Tablet - take 1 tablet by ORAL route every 12 hours As needed; 20 tablet. Levaquin 250 mg Oral Tablet - take 1 tablet by ORAL route once daily for 7 days; 7 tablet. - Medication Reconciliation Form, Thank You Letter, Antibiotic Education, Prescription Opioid Use form. - Follow up: Private Physician; When: 2 - 3 days; Reason: Recheck today's complaints, Continuance of care, Re-evaluation by your physician. - Problem is new. - Symptoms have improved. Signatures: Dispatcher [employer] EDIN Mauri Yoon MD MD cha Smirch, Shelby, RN RN Desi Carroll, RN RN Enmanuel Pate RN RN ll1 Corrections: (The following items were deleted from the chart) 19:24 19:24 04/13/2020 19:24 Discharged to Home. Impression: Vomiting; Urinary tract ss infection, site not specified. Condition is Stable. Discharge Instructions: Nausea and Vomiting, Adult, Nausea and Vomiting, Adult, [id number], Urinary Tract Infection, Adult, Urinary Tract Infection, Adult, [id number]-mg-[id number]. Prescriptions for Zofran 4 mg Oral Tablet - take 1 tablet by ORAL route every 12 hours As needed; 20 tablet, Levaquin 250 mg Oral Tablet - take 1 tablet by ORAL route once daily for 7 days; 7 tablet. and Forms are Medication Reconciliation Form, Thank You Letter, Antibiotic Education, Prescription Opioid Use. Follow up: Private Physician; When: 2 - 3 days; Reason: Recheck today's complaints, Continuance of care, Re-evaluation by your physician. Problem is new. Symptoms have improved. victor hugo
[2020-04-13 19:30] VITALS: BP 112/57; TEMP 99; O2SAT 96
== END 2020-04-13 19:24 | disposition home or self-care (01) ==
LOC: ER 15:29
DX: N39.0 Urinary tract infection, site not specified (principal); R11.10 Vomiting, unspecified
CPT/HCPCS: 71045; 81003; 81025; 99283

== ENCOUNTER 2021-07-24 16:43 | Emergency (ER) | payer OTHER ==
[2021-07-24] MEDS ORDERED: KETOROLAC 30 MG/ML INJ ONE (17:25)
[2021-07-24] MEDS ORDERED: FAMOTIDINE 20 MG/2 ML VIAL IV ONE (17:25)
[2021-07-24 17:39] LABS: Absolute Lymphocytes (CBC) 2.3 K/uL (0.7-4.9); Basophils % 0.7 % (0-1.3); Hematocrit 47.5 % (36.0-45.0); Lymphocytes % 40.7 % (15.3-44.8); MPV 9.1 fL (7.6-11.3); RBC Red Blood Cell Count 5.32 M/uL (3.86-4.86)
--- NOTE | 2021-07-24 17:42 | RAD REPORT ---
EXAM DESCRIPTION: RAD - Chest Single View - 07/24/2021 5:06 pm CLINICAL HISTORY: CHEST PAIN COMPARISON: Chest Single View dated 04/13/2020; Abdomen 1 View (KUB) dated 08/24/2017; Chest Single V iew dated 03/23/2016; CHEST SINGLE VIEW dated 02/19/2015 FINDINGS: Lines: None. Lungs: No evidence of edema or pneumonia. Pleural: No significant pleural effusions or pneumothorax. Cardiac: The heart size is within normal limits. Bones: No acute fractures. Other: IMPRESSION: No acute cardiopulmonary disease.
[2021-07-24 18:03] LABS: ALT/SGPT 207 U/L (12-78); AST/SGOT 84 U/L (15-37); Alkaline Phosphatase 107 U/L (45-117); BUN Blood Urea Nitrogen 11 mg/dL (7-18); Bicarbonate 27 mmol/L (21-32); Bilirubin Direct 0.2 mg/dL (0-0.2); Glucose Level 143 mg/dL (74-106); Potassium 3.7 mmol/L (3.5-5.1); Protein, Total 8.3 g/dL (6.4-8.2); Sodium Level 145 mmol/L (136-145)
[2021-07-24 18:04] LABS: Magnesium 2.7 mg/dL (1.8-2.4); NT PRO-BNP 34 pg/mL (<125); Troponin (Emerg Dept Use Only) < 0.02 ng/mL (0.0-0.045)
--- NOTE | 2021-07-24 18:44 | EDPHYS ---
Physician Documentation [facility] Name: Kita Sunshine Age: 25 yrs Sex: Female : 1995 Arrival Date: 07/24/2021 Time: 16:44 Bed 6 Private MD: ED Physician Mk Chadwick HPI: 07/24 18:00 This 25 yrs old Female presents to ER via Ambulatory with complaints of Chest kb Pain. 18:01 The patient or guardian reports chest pain that is located primarily in the anterior kb chest wall. The pain does not radiate. Associated signs and symptoms: The patient has no apparent associated signs or symptoms. The chest pain is described as aching. Duration: The patient or guardian reports a single episode. Modifying factors: The symptoms are alleviated by nothing. the symptoms are aggravated by nothing. Severity of pain: At its worst the pain was moderate in the emergency department the pain is unchanged. The patient has not experienced similar symptoms in the past. The patient has not recently seen a physician. 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 Denies any other symptoms. Historical: - Allergies: 16:52 No Known Drug Allergies; ll1 - PMHx: 16:52 Hyperlipidemia; Intellectually disabled; ll1 - PSHx: 16:52 Cholecystectomy; ll1 - Immunization history:: Client reports receiving the 2nd dose of the Covid vaccine. - Social history:: Smoking status: Patient denies any tobacco usage or history of. Patient/guardian denies using tobacco. ROS: 17:39 Constitutional: Negative for fever, chills, and weight loss. kb 17:39 Cardiovascular: Positive for chest pain, Negative for edema, orthopnea, palpitations, paroxysmal nocturnal dyspnea. 17:39 All other systems are negative. Exam: 17:38 Constitutional: This is a well developed, well nourished patient who is awake, alert, kb and in no acute distress. Head/Face: Normocephalic, atraumatic. ENT: Moist Mucous membranes Cardiovascular: Regular rate and rhythm with a normal S1 and S2. No gallops, murmurs, or rubs. No pulse deficits. Respiratory: Respirations even and unlabored. No increased work of breathing, no retractions or nasal flaring. Abdomen/GI: Soft, non-tender. No distention Skin: Warm, dry with normal turgor. Normal color. MS/ Extremity: Pulses equal, no cyanosis. Neurovascular intact. Full, normal range of motion. Neuro: Awake and alert, GCS 15, oriented to person, place, time, and situation. Moves all extremities. Normal gait. Psych: Awake, alert, with orientation to person, place and time. Behavior, mood, and affect are within normal limits. 17:38 ECG was reviewed by the Attending Physician. Vital Signs: 16:50 Resp 18; Pain 10/10; ll1 17:07 BP 124 / 81; Pulse 102; Pulse Ox 95% on R/A; ll1 18:45 BP 105 / 71; Pulse 105; Resp 18; Temp 98.0; Pulse Ox 98% ; ll1 MDM: 16:45 Patient medically screened. kb 17:39 Data reviewed: vital signs, nurses notes. Data interpreted: Pulse oximetry: on room air kb is 95 %. Interpretation: normal. 18:07 Counseling: I had a detailed discussion with the patient and/or guardian regarding: the kb historical points, exam findings, and any diagnostic results supporting the discharge/admit diagnosis, lab results, radiology results, the need for outpatient follow up, a family practitioner, to return to the emergency department if symptoms worsen or persist or if there are any questions or concerns that arise at home. 07/24 16:49 Order name: Basic Metabolic Panel kb 07/24 16:49 Order name: CBC with Diff kb 07/24 16:49 Order name: LFT's; Complete Time: 18:07 kb 07/24 16:49 Order name: Magnesium; Complete Time: 18:07 kb 07/24 16:49 Order name: NT PRO-BNP; Complete Time: 18:07 kb 07/24 16:49 Order name: PT-INR; Complete Time: 17:40 kb 07/24 16:49 Order name: Troponin (emerg Dept Use Only); Complete Time: 18:07 kb 07/24 16:49 Order name: XRAY Chest (1 view); Complete Time: 17:44 kb 07/24 16:49 Order name: EKG; Complete Time: 16:50 kb 07/24 16:49 Order name: Basic Metabolic Panel; Complete Time: 18:07 EDMS 07/24 16:50 Order name: CBC with Automated Diff; Complete Time: 17:40 EDMS 07/24 16:49 Order name: Cardiac monitoring; Complete Time: 17:00 kb 07/24 16:49 Order name: EKG - Nurse/Tech; Complete Time: 17:00 kb 07/24 16:49 Order name: IV Saline Lock; Complete Time: 16:54 kb 07/24 16:49 Order name: Labs collected and sent; Complete Time: 16:54 kb 07/24 16:49 Order name: O2 Per Protocol; Complete Time: 16:54 kb 07/24 16:49 Order name: O2 Sat Monitoring; Complete Time: 16:54 kb EC:38 Rate is 106 beats/min. Rhythm is regular. QRS Perkins is Normal. [place] interval is prolonged kb at 214 msec. QRS interval is normal at 108 msec. QT interval is normal at 324 msec. Administered Medications: 17:30 Drug: Ketorolac 30 mg Route: IVP; Site: left antecubital; ll1 18:45 Follow up: Response: No adverse reaction ll1 17:30 Drug: Pepcid (famotidine) 20 mg Route: IVP; Site: left antecubital; ll1 18:45 Follow up: Response: No adverse reaction ll1 18:40 Drug: GI Cocktail without - (Maalox Suspension 30 ml, Lidocaine Liquid 2 % 15 ll1 ml) Route: PO; 19:05 Follow up: Response: No adverse reaction ll1 Disposition Summary: 07/24/21 18:43 Discharge Ordered Location: Home kb Condition: Stable kb Diagnosis - Chest pain, unspecified kb Followup: kb - With: Emergency Department - When: As needed - Reason: Worsening of condition Followup: kb - With: Private Physician - When: 2 - 3 days - Reason: Recheck today's complaints, Continuance of care, Re-evaluation by your physician Discharge Instructions: - Discharge Summary Sheet kb - Nonspecific Chest Pain, Adult, [id number] kb Forms: - Medication Reconciliation Form kb - Thank You Letter kb - Antibiotic Education kb - Prescription Opioid Use kb Addendum: 08/02/2021 22:54 Co-signature as Attending Physician, Mk Chadwick MD PA/USER EXPERIENCE DEVELOPER's history reviewed, m a2 patient interviewed, and examined. I agree with assessment and care plan and confirm the diagnosis (es) above. Signatures: Dispatcher [employer] EDMS Sonya Crowley FNP-C SLIP COVER SEWER-Ckb Mk Chadwick MD MD ma2 Enmanuel Pavon RN RN ll1
--- NOTE | 2021-07-24 18:44 | ER ---
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 No cough or fever. Coronavirus screen: Vaccine status: Patient reports receiving the 2nd dose of the covid vaccine. Client denies travel out of the [place] in the last 14 days. At this time, the client does not indicate any symptoms associated with coronavirus-19. Ebola Screen: Patient denies travel to an Ebola-affected area in the 21 days before illness onset. Initial Sepsis Screen: Does the patient meet any 2 criteria? No. Patient's initial sepsis screen is negative. Does the patient have a suspected source of infection? No. Patient's initial sepsis screen is negative. Risk Assessment: Do you want to hurt yourself or someone else? Patient reports no desire to harm self or others. Onset of symptoms was July 24, 2021. 16:50 Method Of Arrival: Ambulatory 1 16:50 Acuity: KAREN 3 ll1 Triage Assessment: 16:53 General: Appears distressed, Behavior is anxious, crying. Pain: Complains of pain in ll1 chest Pain currently is 10 out of 10 on a pain scale. Quality of pain is described as aching, Pain began 30 min ago. Is continuous. Neuro: No deficits noted. Cardiovascular: Reports chest pain, Heart tones S1 S2 Capillary refill < 3 seconds Clubbing of nail beds is absent JVD is absent Patient's skin is warm and dry. Respiratory: No deficits noted. GI: No deficits noted. Historical: - Allergies: 16:52 No Known Drug Allergies; ll1 - PMHx: 16:52 Hyperlipidemia; Intellectually disabled; ll1 - PSHx: 16:52 Cholecystectomy; ll1 - Immunization history:: Client reports receiving the 2nd dose of the Covid vaccine. - Social history:: Smoking status: Patient denies any tobacco usage or history of. Patient/guardian denies using tobacco. Screenin:52 Abuse screen: Denies threats or abuse. Nutritional screening: No deficits noted. ll1 Tuberculosis screening: No symptoms or risk factors identified. 16:54 Fall Risk IV access (20 points). Total Gonzalez Fall Scale indicates No Risk (0-24 pts). ll1 Assessment: 16:54 Pain: Pain does not radiate. ll1 18:00 Reassessment: No changes from previously documented assessment. Patient and/or family ll1 updated on plan of care and expected duration. Pain level reassessed. Patient is alert, oriented x 3, equal unlabored respirations, skin warm/dry/pink. Pain:. 18:46 Pain: Complains of pain in chest Quality of pain is described as aching, Aggravated by ll1 cough. Cardiovascular: Reports chest pain, Heart tones S1 S2 Capillary refill < 3 seconds Clubbing of nail beds is absent JVD is absent Patient's skin is warm and dry. Rhythm is sinus tachycardia. Respiratory: Airway is patent Trachea midline Respiratory effort is even, unlabored, Respiratory pattern is regular, symmetrical, Breath sounds are clear bilaterally. 19:05 Pain: Denies pain. ll1 Vital Signs: 16:50 Resp 18; Pain 10/10; ll1 17:07 BP 124 / 81; Pulse 102; Pulse Ox 95% on R/A; ll1 18:45 BP 105 / 71; Pulse 105; Resp 18; Temp 98.0; Pulse Ox 98% ; ll1 ED Course: 16:44 Patient arrived in ED. as 16:45 [facility]C [facility] kb 16:45 Mk Chadwick MD is Attending Physician. kb 16:50 Enmanuel Pavon RN is Primary Nurse. ll1 16:50 Arm band placed on Patient placed in an exam room, on a stretcher. ll1 16:52 Triage completed. ll1 16:52 Patient has correct armband on for positive identification. Bed in low position. Call ll1 light in reach. Side rails up X 1. secured entrance monitor on. Pulse ox on. NIBP on. 17:05 XRAY Chest (1 view) In Process Unspecified. EDMS 17:15 Inserted saline lock: 22 gauge in left antecubital area, using aseptic technique. Blood ll1 collected. 18:47 Patient maintains SpO2 saturation greater than 95% on room air. ll1 19:05 IV discontinued, intact, bleeding controlled, No redness/swelling at site. Pressure ll1 dressing applied. Administered Medications: 17:30 Drug: Ketorolac 30 mg Route: IVP; Site: left antecubital; ll1 18:45 Follow up: Response: No adverse reaction ll1 17:30 Drug: Pepcid (famotidine) 20 mg Route: IVP; Site: left antecubital; ll1 18:45 Follow up: Response: No adverse reaction ll1 18:40 Drug: GI Cocktail without - (Maalox Suspension 30 ml, Lidocaine Liquid 2 % 15 ll1 ml) Route: PO; 19:05 Follow up: Response: No adverse reaction ll1 Outcome: 18:43 Discharge ordered by . keven 19:08 Patient left the ED. 1 Signatures: Dispatcher [employer] EDSonya Mclain, LENORE-Capri GROVER-Natasha Haq Lynsay, RN RN ll1
[2021-07-24] MEDS ORDERED: LIDOCAINE VISCOUS 2% SOLN 15 ML UDC ONE (18:57)
[2021-07-24] MEDS ORDERED: MAGNES/ALUMIN/SIMET 30ML UCUP ONE (18:57)
[2021-07-24 19:17] VITALS: BP 105/71; TEMP 98; O2SAT 98
== END 2021-07-24 19:08 | disposition home or self-care (01) ==
LOC: ER 16:43
DX: R07.9 Chest pain, unspecified (principal)
CPT/HCPCS: 36415; 71045; 80048; 80076; 83735; 83880; 84484; 85025; 85610; 93005; 96374; 96375; 99285

== ENCOUNTER 2022-09-06 00:18 | Emergency (ER) | payer OTHER ==
--- OUTSIDE RECORDS SUMMARY | 2022-09-06 00:21 | XMS REPORT | Continuity of Care Document ---
:1995 Author Organization [facility] t Address [facility] [place] [address] Care Team Providers Name Role Phone AbdulkadirClaudia Attending Clinician Unavailable Amelia Gibbons Attending Clinician Unavailable Payers Payer Name Policy Type Policy Number Effective Date Expiration Date S ginny [employer] [id number] 2017 Common (Medicaid) 00:00:00 [facility] Problems Condition Condition Condition Status Onset Resolution Last Treating Co mments Source Name Details Category Date Date Treatment Clinician Date [id number] Ob[place] [address] (BMI Spirit 30.0-34.9) [facility] [id number] Vitamin D Problem Active Comm on deficiency [facility] [id number] Hypersomni Problem Active Com mon a [facility] [id number] Intellectu Problem Active Co mmon al [facility] disability [facility] [id number] Hyperlipid Problem Active Com mon emia, Spirit unspecifie - [facility] d hyperlipid [facility] [id number] Difficulty Problem Active Co mmon sleeping [facility] [id number] Snoring Problem Active Common [facility] [id number] Abdominal Problem Active Comm on pain, Spirit unspecifie - [facility] d abdominal [facility] Allergies, Adverse Reactions, Alerts This patient has no known allergies or adverse reactions. Social History Social Habit Start Date Stop Date Quantity Comments Source History of Tobacco Use Co mmon [facility] Sex Assigned At Com mon [facility] Smoking Status Start Date Stop Date Source Never Smoker Common [facility] Medications Ordered Filled Start Stop Current Ordering Indication Dosage Frequency Signature Comments Components Source Medication Medication Date Date Medication? Clinician (SIG) Name Name Yazan Dodsonastati No 1{table Rosuvastat n Calcium n Calcium 2-15 t} in Calcium 20 MG 20 MG 00:00: 20 MG 00 Rosuvastati Rosuvastati No 1{table Rosuvastat n Calcium n Calcium 2-15 t} in Calcium 20 MG 20 MG 00:00: 20 MG 00 Rosuvastati Rosuvastati No 1{table Rosuvastat n Calcium n Calcium 2-15 t} in Calcium 20 MG 20 MG 00:00: 20 MG 00 Vitamin D Vitamin D 2021- No 1{capsu Vitamin D (Ergocalcif (Ergocalcif 2-15 11-12 le} (Ergocalci deny) 1.25 deny) 1.25 00:00: 00:00 ferol) MG (90312 MG (99648 00 :00 1.25 MG UT) UT) (64889 UT) Atorvastati Atorvastati Yes Amelia 1 tablet Common n Calcium n Calcium 6-14 Millender in evening Spirit 00:00: for high - [facility]I 00 cholestero [facility] Gemfibrozil Gemfibrozil Yes Amelia 1 tablet Common Millender [facility] Polymyxin Polymyxin Yes Amelia 1 drop Co mmon B-Trimethop B-Trimethop Millender into Spirit rim rim affected - CHI eye [facility] Nizoral Nizoral Yes Amelia not Common Millender defined [facility] Vitamin D Vitamin D Yes Amelia 1 capsule Common (Ergocalcif (Ergocalcif Millender Spirit deny) deny) [facility] No Known No Known No Common Medications [facility]ations [facility] Vitamin D Vitamin D No 1{capsu Vitamin D (Ergocalcif (Ergocalcif le} (Ergocalci deny) 1.25 deny) 1.25 ferol) MG (33535 MG (35475 1.25 MG UT) UT) (12523 UT) Vitamin D Vitamin D No 1{capsu Vitamin D (Ergocalcif (Ergocalcif le} (Ergocalci deny) 1.25 deny) 1.25 ferol) MG (10790 MG (63713 1.25 MG UT) UT) (21180 UT) Immunizations Ordered Immunization Filled Immunization Date Status Commen ts Source Name Name Flucelvax - single Flucelvax - single 2019-07-04 Completed Common [facility] dose syringe dose syringe 14:03:00 [facility] Flucelvax - single Flucelvax - single 2019-07-04 Completed Common [facility] dose syringe dose syringe 14:03:00 - [facility] Flucelvax - single Flucelvax - single 2019-07-04 Completed Common [facility] dose syringe dose syringe 14:03:00 - [facility] Flucelvax - single Flucelvax - single 2019-07-04 Completed Common [facility] dose syringe dose syringe 14:03:00 - [facility] Flucelvax - single Flucelvax - single 2019-07-04 Completed Common [facility] dose syringe dose syringe 00:00:00 [facility] Vital Signs Vital Name Observation Time Observation Value Comments Source height 2022-05-17 10:20:00 59.25 [in_i] [facility] weight 2022-05-17 10:20:00 176.2 [lb_av] [facility] temperature 2022-05-17 10:20:00 96.6 [degF] [facility] bmi 2022-05-17 10:20:00 35.28 kg/m2 [facility] oximetry 2022-05-17 10:20:00 93 % [facility] respiratory rate 2022-05-17 10:20:00 18 /min Comm on [facility] blood pressure 2022-05-17 10:20:00 80 mm[Hg] [facility] systolic [facility] blood pressure 2022-05-17 10:20:00 56 mm[Hg] [facility] diastolic [facility] height 2022-02-14 11:00:00 59.25 [in_i] [facility] weight 2022-02-14 11:00:00 179.6 [lb_av] [facility] temperature 2022-02-14 11:00:00 98.1 [degF] Common S pirit - [facility] bmi 2022-02-14 11:00:00 35.97 kg/m2 Common S pirit [facility] oximetry 2022-02-14 11:00:00 94 % [facility] respiratory rate 2022-02-14 11:00:00 18 /min Comm on [facility] blood pressure 2022-02-14 11:00:00 96 mm[Hg] [facility] systolic [facility] blood pressure 2022-02-14 11:00:00 53 mm[Hg] Common [facility] - diastolic [facility] bmi 2021-11-16 08:40:00 35.44 kg/m2 [facility] oximetry 2021-11-16 08:40:00 93 % [facility] respiratory rate 2021-11-16 08:40:00 18 /min Comm on [facility] blood pressure 2021-11-16 08:40:00 97 mm[Hg] Common [facility] - systolic [facility] blood pressure 2021-11-16 08:40:00 60 mm[Hg] Common [facility] - diastolic [facility] height 2021-11-16 08:40:00 59.25 [in_i] Common S [facility] weight 2021-11-16 08:40:00 177 [lb_av] Common [facility] temperature 2021-11-16 08:40:00 97.8 [degF] [facility] S [facility] height 2021-08-16 11:00:00 59.25 [in_i] Common [facility] weight 2021-08-16 11:00:00 173 [lb_av] Common [facility] temperature 2021-08-16 11:00:00 98.1 [degF] Common [facility] bmi 2021-08-16 11:00:00 34.64 kg/m2 Common [facility] oximetry 2021-08-16 11:00:00 94 % Common [facility] respiratory rate 2021-08-16 11:00:00 16 /min Comm on [facility] blood pressure 2021-08-16 11:00:00 105 mm[Hg] Common [facility] systolic [facility] blood pressure 2021-08-16 11:00:00 70 mm[Hg] Common [facility] diastolic [facility] Procedures This patient has no known procedures. Encounters Start End Encounter Admission Attending Care Care Encounter Source Date/Time Date/Time Type Type Clinicians Facility Department ID 2022-05-17 Outpatient [place], STLMLC STLMLC [id number] Common 10:21:00 Claudia [facility] 2022-05-13 Outpatient STLMLC STLMLC [id number] Common 08:42:00 [facility] 2022-02-11 Outpatient STLMLC STLMLC [id number] Common 07:26:00 [facility] 2021-11-12 Outpatient STLMLC STLMLC [id number] Common 07:49:00 [facility] 2021-10-27 Outpatient STLMLC STLMLC [id number] Common 14:12:38 [id number] [facility] 2021-10-27 Outpatient [place], STLMLC STLMLC [id number] Common 11:57:42 Amelia [id number] [facility] 2021-10-27 Outpatient [place], STLMLC STLMLC [id number] Common 11:33:42 Amelia [id number] [facility] 2021-10-27 Outpatient [place], STLMLC STLMLC [id number] Common 11:18:22 Amelia [id number] [facility] 2021-10-27 Outpatient [place], STLMLC STLMLC [id number] Common 11:17:59 Amelia [id number] [facility] 2021-10-27 Outpatient [place], STLMLC STLMLC [id number] Common 11:17:34 Amelia [id number] [facility] 2021-10-27 Outpatient [place], STLMLC STLMLC [id number] Common 11:00:55 Amelia [id number] [facility] 2022-05-17 2022-05-17 OFFICE STLMLC STLMLC [id number] Co mmon 00:00:00 00:00:00 VISIT EST Spir it PT LEVEL 3 - CHI [facility] 2022-02-14 2022-02-14 OFFICE STLMLC STLMLC [id number] Co mmon 00:00:00 00:00:00 VISIT Spirit ESTAB PT - CHI LEVEL 4 [facility] 2021-11-16 2021-11-16 OFFICE STLMLC STLMLC [id number] Co mmon 00:00:00 00:00:00 VISIT Spirit ESTAB PT - CHI LEVEL 4 [facility] 2021-08-16 2021-08-16 OFFICE STLMLC STLMLC [id number] Co mmon 00:00:00 00:00:00 VISIT Spirit ESTAB PT - CHI LEVEL 4 [facility] 2020-07-27 2020-07-27 Outpatient STLMLC STLMLC [id number] Common 00:00:00 00:00:00 [facility] 2020-04-26 2020-04-26 [facility] [id number] Common 12:45:00 12:45:[address] [facility] [address] [facility] 2020-04-16 2020-04-16 [facility] [id number] Common 10:00:00 10:00:[address] [facility] [address] [facility] 2020-01-16 2020-01-16 [facility] [id number] Common 11:15:00 11:15:[address] [facility] [address] [facility] 2019-10-28 2019-10-28 [facility] [id number] Common 18:26:00 18:26:[address] Sp[address] [facility] 2019-10-17 2019-10-17 [facility] [id number] Common 15:45:00 15:45:[address] [facility] [facility] 2019-07-04 2019-07-04 [facility] [id number] Common 11:00:00 11:00:[address] [facility] [address] [facility] 2019-05-02 2019-05-02 [facility] [id number] Common 14:09:00 14:09:[address] [facility] [address] [facility] 2019-05-02 2019-05-02 [facility] [id number] Common 09:25:00 09:25:[address] [facility] [facility] 2019-04-29 2019-04-29 [facility] [id number] Common 13:31:00 13:31:[address] [facility] [facility] 2019-04-02 2019-04-02 [facility] [id number] Common 10:53:00 10:53:[address] [facility] [facility] 2019-03-21 2019-03-21 [facility] [id number] Common 13:20:00 13:20:[address] [facility] [facility] 2018-12-19 2018-12-19 [facility] [id number] Common 13:15:00 13:15:[address] [facility] [facility] 2018-09-20 2018-09-20 [facility] [id number] Common 15:30:00 15:30:[address] [facility] [facility] 2018-06-15 2018-06-15 [facility] [id number] Common 13:15:00 13:15:[address] [facility] 2018-03-15 2018-03-15 Outpatient Lesli Matthews [id number] Common 16:00:00 16:00:[address] [facility] Results This patient has no known results.
[2022-09-06 03:01] LABS: SARS-COV-2 RT PCR NEGATIVE (NEGATIVE)
--- NOTE | 2022-09-06 03:18 | ER ---
Nurse's Notes [facility] Name: Kita Sunshine Age: 27 yrs Sex: Female : 1995 Arrival Date: 09/06/2022 Time: 00:23 Bed 19 Private MD: Diagnosis: Acute upper respiratory infection, unspecified Presentation: 09/06 01:10 Chief complaint: Parent and/or Guardian states: She started feeling sick on Monday kd3 and I've been giving her Tylenol. She has been coughing a dry cough. she has the sniffles. Her throat was hurting. She tried to go to sleep tonight but she still feels bad and she says she cannot sleep. Coronavirus screen: Vaccine status: Patient reports receiving the 2nd dose of the covid vaccine. Ebola Screen: No symptoms or risks identified at this time. Initial Sepsis Screen: Does the patient meet any 2 criteria? No. Patient's initial sepsis screen is negative. Does the patient have a suspected source of infection? No. Patient's initial sepsis screen is negative. Risk Assessment: Do you want to hurt yourself or someone else? Patient reports no desire to harm self or others. Onset of symptoms was September 06, 2022. 01:10 Method Of Arrival: Ambulatory kd3 01:10 Acuity: KAREN 4 kd3 Triage Assessment: 01:13 General: Appears ill, Behavior is calm, cooperative. Pain:. Neuro: Level of kd3 Consciousness is awake, alert, obeys commands, Oriented to person, place, time, situation. Respiratory: Airway is patent Trachea midline Respiratory effort is even, unlabored, Respiratory pattern is regular, symmetrical. Historical: - Home Meds: 01:13 cholesterol medication [Active]; kd3 - PMHx: 01:13 Hyperlipidemia; Intellectually disabled; kd3 - PSHx: 01:13 Cholecystectomy; kd3 - Immunization history:: Adult Immunizations up to date. - Social history:: Smoking status: Patient denies any tobacco usage or history of. Screenin:01 Abuse screen: Denies threats or abuse. Denies injuries from another. Nutritional aa9 screening: No deficits noted. Tuberculosis screening: No symptoms or risk factors identified. Fall Risk None identified. Assessment: 02:01 General: Appears comfortable, Behavior is cooperative, appropriate for age, anxious. aa9 Neuro: Level of Consciousness is awake, alert, obeys commands, Oriented to person, place, time, situation. Respiratory: Airway is patent Respiratory effort is even, unlabored. GI: No signs and/or symptoms were reported involving the gastrointestinal system. : No signs and/or symptoms were reported regarding the genitourinary system. 03:24 Reassessment: Patient appears in no apparent distress at this time. Patient is alert, aa9 oriented x 3, equal unlabored respirations, skin warm/dry/pink. 03:24 Reassessment: pt and family aware of medication usage, denies concerns. aa9 Vital Signs: 01:10 BP 104 / 72; Pulse 96; Resp 19; Temp 98.6(O); Pulse Ox 93% ; kd3 ED Course: 00:23 Patient arrived in ED. bp1 00:44 Mauri Villeda PA is PHCP. cp 00:44 Charly Talbot MD is Attending Physician. cp 01:13 Triage completed. kd3 01:13 Arm band placed on left wrist. kd3 01:57 XRAY Chest Pa And Lat (2 Views) In Process Unspecified. EDMS 02:01 Lanie Pro, DIPAK is Primary Nurse. aa9 02:01 COVID-19/FLU A+B/RSV Sent. aa9 02:01 Strep Sent. aa9 03:24 Patient has correct armband on for positive identification. Bed in low position. Call aa9 light in reach. Adult w/ patient. 03:24 No provider procedures requiring assistance completed. Patient did not have IV access aa9 during this emergency room visit. Administered Medications: No medications were administered Medication: 03:24 VIS not applicable for this client. aa9 Outcome: 03:18 Discharge ordered by MD. cp 03:24 Discharged to home ambulatory, with family. aa9 03:24 Condition: stable 03:24 Discharge instructions given to patient, family, Instructed on discharge instructions, follow up and referral plans. medication usage, Demonstrated understanding of instructions, follow-up care, medications, Prescriptions given X 1. 03:25 Patient left the ED. aa9 Signatures: Dispatcher [employer] EDMS Mauri Villeda PA PA cp Keyanna Ferguson bp1 Nelli Persaud RN RN kd3 Lanie Pro, DIPAK RN aa9
--- NOTE | 2022-09-06 03:18 | EDPHYS ---
Physician Documentation [facility] Name: Kita Sunshine Age: 27 yrs Sex: Female : 1995 Arrival Date: 09/06/2022 Time: 00:23 Bed 19 Private MD: KIESHA Physician Charly Talbot HPI: 09/06 01:36 This 27 yrs old Female presents to ER via Ambulatory with complaints of Cough. cp 01:36 The patient or guardian reports cough, that is intermittent. cp 01:36 Onset: The symptoms/episode began/occurred 3 day(s) ago. Associated signs and symptoms: cp Pertinent positives: rhinorrhea, sore throat, Pertinent negatives: chest pain, fever, vomiting. Historical: - Home Meds: 01:13 cholesterol medication [Active]; kd3 - PMHx: 01:13 Hyperlipidemia; Intellectually disabled; kd3 - PSHx: 01:13 Cholecystectomy; kd3 - Immunization history:: Adult Immunizations up to date. - Social history:: Smoking status: Patient denies any tobacco usage or history of. ROS: 01:40 Constitutional: Negative for fever, poor PO intake. cp 01:40 Eyes: Negative for injury, pain, redness, and discharge. cp 01:40 ENT: Positive for rhinorrhea, sore throat, Negative for drainage from ear(s), ear pain. 01:40 Cardiovascular: Negative for chest pain. 01:40 Respiratory: Positive for cough, "sounds productive", Negative for wheezing. 01:40 Abdomen/GI: Negative for abdominal pain, vomiting, diarrhea, constipation. 01:40 Skin: Negative for rash. 01:40 Neuro: Negative for altered mental status, headache. 01:40 All other systems are negative. Exam: 01:45 Constitutional: The patient appears in no acute distress, alert, awake, non-toxic, well cp developed, well nourished, obese. 01:45 Head/Face: Normocephalic, atraumatic. cp 01:45 Eyes: Periorbital structures: appear normal, Conjunctiva: normal, no exudate, no injection, Sclera: no appreciated abnormality, Lids and lashes: appear normal, bilaterally. 01:45 ENT: External ear(s): are unremarkable, Ear canal(s): are normal, clear, TM's: bulging, is not appreciated, bilaterally, dullness, bilaterally, erythema, is not appreciated, bilaterally, Nose: is normal, Mouth: Lips: moist, Oral mucosa: moist, Posterior pharynx: Airway: no evidence of obstruction, patent, Tonsils: with erythema, no enlargement, no exudate, swelling, is not appreciated, erythema, that is mild, exudate, is not appreciated. 01:45 Neck: ROM/movement: pain, is not appreciated, limited range of motion, is not appreciated, Lymph nodes: no appreciated lymphadenopathy. 01:45 Chest/axilla: Inspection: normal. 01:45 Cardiovascular: Rate: normal, Rhythm: regular. 01:45 Respiratory: the patient does not display signs of respiratory distress, Respirations: normal, no use of accessory muscles, no retractions, labored breathing, is not present, Breath sounds: decreased breath sounds, are not appreciated, stridor, is not appreciated, + upper airway congestion. wheezing: is not appreciated. 01:45 Abdomen/GI: Exam negative for discomfort, distension, guarding, Inspection: abdomen appears normal. 01:45 Back: pain, is absent, ROM is normal. Vital Signs: 01:10 BP 104 / 72; Pulse 96; Resp 19; Temp 98.6(O); Pulse Ox 93% ; kd3 MDM: 01:19 Patient medically screened. cp 03:15 Data reviewed: vital signs, nurses notes, lab test result(s), radiologic studies, plain cp films. 03:15 Differential Diagnosis: Bronchitis Influenza Sinusitis Pharyngitis Viral Syndrome cp Pneumonia. Test interpretation: by ED physician or midlevel provider: plain radiologic studies. Counseling: I had a detailed discussion with the patient and/or guardian regarding: the historical points, exam findings, and any diagnostic results supporting the discharge/admit diagnosis, lab results, radiology results, to return to the emergency department if symptoms worsen or persist or if there are any questions or concerns that arise at home. ED course: VSS. Patient appears non-toxic and no signs of respiratory distress. Chest xray negative for focal pneumonia. 09/06 01:35 Order name: Strep; Complete Time: 03:11 cp 09/06 03:12 Interpretation: Reviewed. 09/06 01:35 Order name: COVID-19/FLU A+B/RSV; Complete Time: 03:11 cp 09/06 03:12 Interpretation: Reviewed. cp 09/06 01:36 Order name: XRAY Chest Pa And Lat (2 Views) cp 09/06 02:31 Order name: Throat Culture EDMS Administered Medications: No medications were administered Disposition: 07:02 Co-signature as Attending Physician, Charly Talbot MD I agree with the assessment and rt plan of care. Disposition Summary: 09/06/22 03:18 Discharge Ordered Location: Home cp Problem: new cp Symptoms: are unchanged cp Condition: Stable cp Diagnosis - Acute upper respiratory infection, unspecified cp Followup: cp - With: Private Physician - When: 2 - 3 days - Reason: Worsening of condition Discharge Instructions: - Discharge Summary Sheet cp - Viral Respiratory Infection cp - Cool Mist Vaporizer cp Forms: - Medication Reconciliation Form cp - Thank You Letter cp - Antibiotic Education cp - Prescription Opioid Use cp Prescriptions: - Bromfed DM 2-30-10 mg/5 mL Oral syrup - take 10 milliliter by ORAL route every 6 hours; 180 milliliter; Refills: 0, cp Product Selection Permitted Signatures: Dispatcher [employer] EDMS Mauri Villeda PA PA cp Nelli Persaud, RN RN kd3 Charly Talbot MD MD rt
[2022-09-06 07:13] VITALS: BP 104/72; TEMP 98.6; O2SAT 93
--- NOTE | 2022-09-06 18:02 | RAD REPORT ---
EXAM DESCRIPTION: X-ray two view chest. CLINICAL HISTORY: 27 years Female, COUGH COMPARISON: Prior chest x-ray report from 07/24/2021. The image was unavailable for review. TECHNIQUE: PA and Lateral views of the chest performed on 09/06/2022 at 1:48 AM FINDINGS: Lungs are well-expanded and are grossly clear. There may be minimal opacification in the l eft lung base which may be due to atelectasis. The costophrenic sulci are clear. There is no evidence of a pneumothorax. The cardiac silhouette is normal in size. The mediastinal contours are normal. No acute osseous abnormalities are identified. No focal soft tissue abnormalities are identified. IMPRESSION: No evidence of acute intrathoracic disease. There may be minimal left basilar atelectasi s. Electronically signed by: Mimi Goldstein DO 09/06/2022 2:53 AM [facility] Due to temporary technical issues with the PACS/Fluency reporting system, reports are being signed by the in house radiologists without review as a courtesy to insure prompt reporting. The interpreting radiologist is fully responsible for the content of the report.
== END 2022-09-06 03:25 | disposition home or self-care (01) ==
LOC: ER 00:18
DX: J06.9 Acute upper respiratory infection, unspecified (principal); E78.5 Hyperlipidemia, unspecified; Z20.822 Contact with and (suspected) exposure to COVID-19
CPT/HCPCS: 87070; 87081; 0241U; 71046; 99283

== ENCOUNTER → 2023-10-20 | Emergency (ER) | payer OTHER ==
[~2023-10-20] MED LIST: TDAP (DIPHTH,PERTUSS(ACELL),TET VAC) 0.5 ML VIAL IMVAC ONE
--- OUTSIDE RECORDS SUMMARY | 2023-10-20 16:27 | XMS REPORT | Continuity of Care Document ---
Author Name Unknown Address [address] [facility] [address] [place] [address] [facility] thconnect Address [address] [facility] [address] [place] [address] Care Team Providers Care Etl Informatica Architect Name Role Phone Claudia Panchal Attending Clinician Unavailable Amelia Gibbons Attending Clinician Unavailable Payers Payer Name Policy Type Policy Number Effective Date Expirati on Date Source [employer] (Medicaid) [id number] 2017 00:00:00 [facility] Problems Condition Name Condition Details Condition Category Status Onset Date Resolution Date Last Treatment Date Treating Clinician Comments Source [id number] Obesity (BMI 30.0-34.9) Problem [facility] [id number] Vitamin D deficiency Problem [facility] [id number] Hypersomni a Problem [facility] [id number] Intellectu al disability Problem [facility] [id number] Hyperlipid emia, unspecifie d hyperlipid emia type Problem [facility] [id number] Difficulty sleeping Problem [facility] [id number] Snoring Problem [facility] [id number] Abdominal pain, unspecifie d abdominal location Problem [facility] Social History Social Habit Start Date Stop Date Quantity Comments Source History of Tobacco Use [facility] Sex Assigned At [facility] Smoking Status Start Date Stop Date Source Never Smoker [facility] Medications Ordered Medication Name Filled Medication Name Start Date Stop Date Current Medication? Ordering Clinician Indication Dosage Frequency Signature (SIG) Comments Components Source Rosuvastati n Calcium 20 MG Rosuvastati n Calcium 20 MG 2021-0 2-15 00:00: 00 No 1{table t} Rosuvastat in Calcium 20 MG Rosuvastati n Calcium 20 MG Rosuvastati n Calcium 20 MG 2021-0 2-15 00:00: 00 No 1{table t} Rosuvastat in Calcium 20 MG Rosuvastati n Calcium 20 MG Rosuvastati n Calcium 20 MG 2021-0 2-15 00:00: 00 No 1{table t} Rosuvastat in Calcium 20 MG Rosuvastati n Calcium 20 MG Rosuvastati n Calcium 20 MG 2021-0 2-15 00:00: 00 No 1{table t} Rosuvastat in Calcium 20 MG Vitamin D (Ergocalcif deny) 1.25 MG (90000 UT) Vitamin D (Ergocalcif deny) 1.25 MG (89780 UT) 2021-0 2-15 00:00: 00 12 00:00 :00 No 1{capsu le} Vitamin D (Ergocalci ferol) 1.25 MG (98579 UT) Atorvastati n Calcium Atorvastati n Calcium 2017-0 6-14 00:00: 00 Yes Amelia Millender 1 tablet in evening for high cholestero l [facility] Gemfibrozil Gemfibrozil Yes Amelia Millender 1 tablet [facility] Polymyxin B-Trimethop rim Polymyxin B-Trimethop rim Yes Amelia Millender 1 drop into affected eye [facility] Nizoral Nizoral Yes Amelia Millender not defined [facility] Vitamin D (Ergocalcif deny) Vitamin D (Ergocalcif deny) Yes Amelia Millender 1 capsule [facility] Vitamin D (Ergocalcif deny) 1.25 MG (23403 UT) Vitamin D (Ergocalcif deny) 1.25 MG (49646 UT) No 1{capsu le} Vitamin D (Ergocalci ferol) 1.25 MG (89601 UT) Melatonin Melatonin No Melatonin Rosuvastati n Calcium 20 MG Rosuvastati n Calcium 20 MG No 1{table t} Rosuvastat in Calcium 20 MG No Known Medications No Known Medications No [facility] Vitamin D (Ergocalcif deny) 1.25 MG (90569 UT) Vitamin D (Ergocalcif deny) 1.25 MG (98441 UT) No 1{capsu le} Vitamin D (Ergocalci ferol) 1.25 MG (76500 UT) Vitamin D (Ergocalcif deny) 1.25 MG (82497 UT) Vitamin D (Ergocalcif deny) 1.25 MG (63098 UT) No 1{capsu le} Vitamin D (Ergocalci ferol) 1.25 MG (63565 UT) Vitamin D (Ergocalcif deny) 1.25 MG (50089 UT) Vitamin D (Ergocalcif deny) 1.25 MG (16406 UT) No 1{capsu le} Vitamin D (Ergocalci ferol) 1.25 MG (30022 UT) Immunizations Ordered Immunization Name Filled Immunization Name Date Status Comments Source Flucelvax - single dose syringe Flucelvax - single dose syringe 2019-07-04 14:03:00 Completed [facility] Flucelvax - single dose syringe Flucelvax - single dose syringe 2019-07-04 14:03:00 Completed [facility] Flucelvax - single dose syringe Flucelvax - single dose syringe 2019-07-04 14:03:00 Completed [facility] Flucelvax - single dose syringe Flucelvax - single dose syringe 2019-07-04 14:03:00 Completed [facility] Flucelvax - single dose syringe Flucelvax - single dose syringe 2019-07-04 14:03:00 [facility] Flucelvax - single dose syringe Flucelvax - single dose syringe 2019-07-04 00:00:00 Completed [facility] Flucelvax - single dose syringe Flucelvax - single dose syringe Unknown Completed [facility] Vital Signs Vital Name Observation Time Observation Value Comments S ginny weight 2023-03-13 10:00:00 171.6 [lb_av] Co [facility] temperature 2023-03-13 10:00:00 97.7 [degF] Com [facility] bmi 2023-03-13 10:00:00 34.36 kg/m2 Comm on [facility] oximetry 2023-03-13 10:00:00 95 % Commo n [facility] respiratory rate 2023-03-13 10:00:00 15 /min [facility] blood pressure systolic 2023-03-13 10:00:00 83 mm[Hg] [facility] blood pressure diastolic 2023-03-13 10:00:00 52 mm[Hg] [facility] height 2023-03-13 10:00:00 59.25 [in_i] Com [facility] height 2022-05-17 10:20:00 59.25 [in_i] Com [facility] weight 2022-05-17 10:20:00 176.2 [lb_av] Co [facility] temperature 2022-05-17 10:20:00 96.6 [degF] Com [facility] bmi 2022-05-17 10:20:00 35.28 kg/m2 Comm on [facility] oximetry 2022-05-17 10:20:00 93 % Commo n [facility] respiratory rate 2022-05-17 10:20:00 18 /min [facility] blood pressure systolic 2022-05-17 10:20:00 80 mm[Hg] [facility] blood pressure diastolic 2022-05-17 10:20:00 56 mm[Hg] [facility] height 2022-02-14 11:00:00 59.25 [in_i] Com [facility] weight 2022-02-14 11:00:00 179.6 [lb_av] Co mmon [facility] temperature 2022-02-14 11:00:00 98.1 [degF] Com [facility] bmi 2022-02-14 11:00:00 35.97 kg/m2 Comm on [facility] oximetry 2022-02-14 11:00:00 94 % Commo n [facility] respiratory rate 2022-02-14 11:00:00 18 /min [facility] blood pressure systolic 2022-02-14 11:00:00 96 mm[Hg] Common [facility] blood pressure diastolic 2022-02-14 11:00:00 53 mm[Hg] [facility] height 2021-11-16 08:40:00 59.25 [in_i] Com [facility] weight 2021-11-16 08:40:00 177 [lb_av] Comm on [facility] temperature 2021-11-16 08:40:00 97.8 [degF] Com [facility] bmi 2021-11-16 08:40:00 35.44 kg/m2 Comm on [facility] oximetry 2021-11-16 08:40:00 93 % Commo n [facility] respiratory rate 2021-11-16 08:40:00 18 /min [facility] blood pressure systolic 2021-11-16 08:40:00 97 mm[Hg] Common [facility] blood pressure diastolic 2021-11-16 08:40:00 60 mm[Hg] [facility] height 2021-08-16 11:00:00 59.25 [in_i] Com [facility] weight 2021-08-16 11:00:00 173 [lb_av] Comm on [facility] temperature 2021-08-16 11:00:00 98.1 [degF] Com mon [facility] bmi 2021-08-16 11:00:00 34.64 kg/m2 Comm on [facility] oximetry 2021-08-16 11:00:00 94 % Commo n [facility] respiratory rate 2021-08-16 11:00:00 16 /min [facility] blood pressure systolic 2021-08-16 11:00:00 105 mm[Hg] [facility] blood pressure diastolic 2021-08-16 11:00:00 70 mm[Hg] [facility] Encounters Start Date/Time End Date/Time Encounter Type Admission Type Attending [facility] Care Department Encounter ID Source 2023-09-12 12:49:00 Outpatient Claudia Panchal STLMLC STL[facility] [id number] [facility] 2023-09-08 11:29:00 Outpatient Claudia Panchal STLMLC STLMLC [id number] [facility] 2023-03-10 08:09:00 Outpatient Claudia Panchal STLMLC STL[facility]C [id number] [facility] 2022-12-09 11:41:01 Outpatient Claudia Panchal STLMLC STL[facility]C [id number] [facility] 2022-05-17 10:21:00 Outpatient Claudia Panchal STLMLC STLMLC [id number] [facility] 2022-05-13 08:42:00 Outpatient STLMLC STLMLC [id number] [facility] 2022-02-11 07:26:00 Outpatient STLMLC STLMLC [id number] [facility] 2021-11-12 07:49:00 Outpatient STLMLC STLMLC [id number] [facility] 2021-10-27 14:12:38 Outpatient STLMLC STLMLC [id number] [facility] 2021-10-27 11:57:42 Outpatient Amelia Gibbons STFRANCESCOLC STLMLC [id number] [facility] 2021-10-27 11:33:42 Outpatient Amelia Gibbons STLMLC STLMLC [id number] [facility] 2021-10-27 11:18:22 Outpatient Amelia Gibbons STLMLC STLMLC [id number] [facility] 2021-10-27 11:17:59 Outpatient Levi Gibbonsen STLMLC STLMLC [id number] [facility] 2021-10-27 11:17:34 Outpatient Amelia Gibbons STLMLC STLMLC [id number] [facility] 2021-10-27 11:00:55 Outpatient Amelia Gibbons STLMLC STLMLC [id number] [facility] 2023-03-13 00:00:00 2023-03-13 00:00:00 OFFICE VISIT ESTAB PT LEVEL 3 STLMLC STLMLC [id number] [facility] 2022-11-02 00:00:00 2022-11-02 00:00:00 (TEL) STLMLC STLMLC [id number] [facility] 2022-05-17 00:00:00 2022-05-17 00:00:00 OFFICE VISIT EST PT LEVEL 3 STLMLC STLMLC [id number] [facility] 2022-02-14 00:00:00 2022-02-14 00:00:00 OFFICE VISIT ESTAB PT LEVEL 4 STLMLC STLMLC [id number] [facility] 2021-11-16 00:00:00 2021-11-16 00:00:00 OFFICE VISIT ESTAB PT LEVEL 4 STLMLC STLMLC [id number] [facility] 2021-08-16 00:00:00 2021-08-16 00:00:00 OFFICE VISIT ESTAB [facility] [id number] [facility] 2020-07-27 00:00:00 2020-07-27 00:00:00 Outpatient STLC STLC [id number] [facility] 2020-04-26 12:45:00 2020-04-26 12:45:[address] [facility] [id number] [facility] 2020-04-16 10:00:00 2020-04-16 10:00:[address] [facility] [id number] [facility] 2020-01-16 11:15:00 2020-01-16 11:15:[address] [facility] [id number] [facility] 2019-10-28 18:26:00 2019-10-28 18:26:[address] [facility] [facility] [id number] [facility] 2019-10-17 15:45:00 2019-10-17 15:45:[address] [facility] [id number] [facility] 2019-07-04 11:00:00 2019-07-04 11:00:[address] [facility] [id number] [facility] 2019-05-02 14:09:00 2019-05-02 14:09:[address] [facility] [id number] [facility] 2019-05-02 09:25:00 2019-05-02 09:25:[address] [facility] [id number] [facility] 2019-04-29 13:31:00 2019-04-29 13:31:[address] [facility] [facility] [id number] [facility] 2019-04-02 10:53:00 2019-04-02 10:53:00 [facility] [id number] [facility] 2019-03-21 13:20:00 2019-03-21 13:20:00 [facility] [id number] [facility] 2018-12-19 13:15:00 2018-12-19 13:15:00 [facility] [id number] [facility] 2018-09-20 15:30:00 2018-09-20 15:30:00 [facility] [id number] [facility] 2018-06-15 13:15:00 2018-06-15 13:15:00 [facility] [id number] [facility] 2018-03-15 16:00:00 2018-03-15 16:00:00 [facility] [id number] [facility]
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
[2023-10-20 23:17] VITALS: BP 134/89; TEMP 97.1; O2SAT 100
== END ==
LOC: ER 16:24
DX: S80.212A Abrasion, left knee, initial encounter (principal); V49.50XA Passenger injured in collision with unspecified motor vehicles in traffic accident, initial encounter; E78.5 Hyperlipidemia, unspecified; F79 Unspecified intellectual disabilities; Z79.899 Other long term (current) drug therapy
CPT/HCPCS: 96372; 99285

== ENCOUNTER 2024-05-19 19:36 | Inpatient (IN) | payer OTHER ==
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
[2024-05-19] MEDS ORDERED: IPRATROPIUM BROM 0.5MG/2.5ML ONE (20:50)
[2024-05-19] MEDS ORDERED: METHYLPREDNISOLONE 125 MG INJ ONE (20:50)
[2024-05-19] MEDS ORDERED: ALBUTEROL 2.5 MG/3 ML NEB SOL ONE (20:50)
[2024-05-19 20:55] LABS: Absolute Eosinophils 0.3 K/uL (0-0.5); Absolute Lymphocytes (CBC) 1.3 K/uL (0.7-4.9); Absolute Monocytes 0.5 K/uL (0.1-1.3); Absolute Neutrophil 7.6 K/uL (1.8-8.0); Basophils % 0.2 % (0-1.3); Hematocrit 44.7 % (36.0-45.0); Hemoglobin 14.6 g/dL (12.0-15.0); Lymphocytes % 13.1 % (15.3-44.8); MCH 29.3 pg (27.0-35.0); MCHC 32.7 g/dL (32.0-36.0); MCV 89.3 fL (80-100); MPV 9.8 fL (7.6-11.3); Monocytes % 5.6 % (3.3-12.3); Neutrophils % 78.1 % (41.7-73.7); Nucleated Red Blood Cells % 0.1 % (0-0); Platelets 185 thou/uL (152-406); Red Cell Distribution Width 14.6 % (12.1-15.2)
[2024-05-19 21:09] LABS: PTT, Activated Partial Thromb 33.4 SECONDS (24.3-36.9); Protime INR 1.17
[2024-05-19 21:14] LABS: SARS-CoV-2 Antigen CONTROL BLUE LINE VIS/BG OK; SARS-CoV-2 Antigen Rapid Res Negative (Negative)
[2024-05-19 21:19] LABS: Albumin 3.8 g/dL (3.4-5.0); Albumin/Globulin Ratio 0.8 (1.1-1.8); Anion Gap 9.4 mEq/L (5.0-15.0); Bilirubin Total 1.3 mg/dL (0.2-1.0); Globulin 4.5 g/dL (2.3-3.5); Potassium 3.4 mEq/L (3.5-5.1); Protein, Total 8.3 g/dL (6.4-8.2)
[2024-05-19] MEDS ORDERED: NA CHLORIDE 0.9% 1,000 ML ONE (22:52)
[2024-05-20] MEDS ORDERED: AZITHROMYCIN 250 MG TAB ONE (00:07)
[2024-05-20] MEDS ORDERED: CEFTRIAXONE 1000 MG/VIAL ONE (00:07)
--- NOTE | 2024-05-20 00:11 | ER ---
Nurse's Notes [facility] Name: Kita Sunshine Age: 28 yrs Sex: Female : 1995 Arrival Date: 05/19/2024 Time: 19:36 Bed 4 Private MD: Diagnosis: Pneumonia, unspecified organism;Hypoxemia Presentation: 05/19 19:51 Chief complaint: Patient states: Cough and low grade fever onset Monday. Cough is cm10 productive. TMAX 99.8. No sick contacts. Coronavirus screen: Client denies travel out of the [place] in the last 14 days. Ebola Screen: Patient denies travel to an Ebola-affected area in the 21 days before illness onset. No symptoms or risks identified at this time. Initial Sepsis Screen: Does the patient meet any 2 criteria? HR > 90 bpm. Does the patient have a suspected source of infection? No. Patient's initial sepsis screen is negative. Risk Assessment: Do you want to hurt yourself or someone else? Patient reports no desire to harm self or others. Onset of symptoms was May 19, 2024. 19:51 Method Of Arrival: Ambulatory cm10 19:51 Acuity: KAREN 2 cm10 Triage Assessment: 19:53 General: Appears in no apparent distress. comfortable, Behavior is calm, cooperative. cm10 Respiratory: No deficits noted. Airway is patent Respiratory effort is even, unlabored, Respiratory pattern is regular, symmetrical. 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 - Infectious Disease History:: Denies. - Social history:: Smoking status: Patient denies any tobacco usage or history of. Screenin:03 [facility] ED Fall Risk Assessment (Adult) History of falling in the last 3 months, cp4 including since admission No falls in past 3 months (0 pts) Confusion or Disorientation No (0 pts) Intoxicated or Sedated No (0 pts) Impaired Gait No (0 pts) Mobility Assist Device Used No (0 pt) Altered Elimination No (0 pt) Score/Fall Risk Level 0 - 2 = Low Risk Oriented to surroundings, Maintained a safe environment, Assessed \T\ reinforced patient's understanding of fall precautions, Hourly rounding (assess needs \T\ fall precautionary measures) done. Abuse screen: Denies threats or abuse. Nutritional screening: No deficits noted. Tuberculosis screening: No symptoms or risk factors identified. Assessment: 20:03 General: Appears uncomfortable, Behavior is calm, cooperative. cp4 20:03 Pain: Denies pain. Neuro: Level of Consciousness is awake, alert, obeys commands, cp4 Oriented to person, place, time. Cardiovascular: Denies chest pain. Respiratory: Reports shortness of breath cough that is non-productive, Airway is patent Respiratory effort is even, unlabored. GI: No signs and/or symptoms were reported involving the gastrointestinal system. : No signs and/or symptoms were reported regarding the genitourinary system. EENT: No signs and/or symptoms were reported regarding the EENT system. Derm: No signs and/or symptoms reported regarding the dermatologic system. Musculoskeletal: No signs and/or symptoms reported regarding the musculoskeletal system. 21:00 Reassessment: No changes from previously documented assessment. Patient and/or family cp4 updated on plan of care and expected duration. Pain level reassessed. Patient is alert, oriented x 3, equal unlabored respirations, skin warm/dry/pink. 22:00 Reassessment: No changes from previously documented assessment. Patient and/or family cp4 updated on plan of care and expected duration. Pain level reassessed. Patient is alert, oriented x 3, equal unlabored respirations, skin warm/dry/pink. 23:00 Reassessment: No changes from previously documented assessment. Patient and/or family cp4 updated on plan of care and expected duration. Pain level reassessed. Patient is alert, oriented x 3, equal unlabored respirations, skin warm/dry/pink. 05/20 00:00 Reassessment: No changes from previously documented assessment. Patient and/or family cp4 updated on plan of care and expected duration. Pain level reassessed. Patient is alert, oriented x 3, equal unlabored respirations, skin warm/dry/pink. 01:00 Reassessment: No changes from previously documented assessment. Patient and/or family cp4 updated on plan of care and expected duration. Pain level reassessed. Patient is alert, oriented x 3, equal unlabored respirations, skin warm/dry/pink. Vital Signs: 05/19 19:53 BP 99 / 72; Pulse 103; Resp 18; Temp 99.1(O); Pulse Ox 83% on R/A; Weight 72.57 kg; cm10 Height 5 ft. 0 in. ; 20:57 BP 103 / 62; Pulse 105; Resp 20; Temp 98.3; Pulse Ox 95% ; go2 22:00 BP 98 / 78; Pulse 100; Resp 18; Pulse Ox 99% on 2 lpm NC; cp4 23:00 BP 100 / 82; Pulse 89; Resp 18; Pulse Ox 94% on 2 lpm NC; cp4 05/20 00:00 BP 98 / 73; Pulse 86; Resp 18; Pulse Ox 97% on 2 lpm NC; cp4 01:00 BP 113 / 82; Pulse 105; Resp 18; Pulse Ox 94% on 2 lpm NC; cp4 05/19 19:53 Body Mass Index 31.25 (72.57 kg, 152.4 cm) cm10 ED Course: 05/19 19:39 Patient arrived in ED. jj6 19:40 Mauri Villeda PA is PHCP. cp 19:40 Rupesh Tucker MD is Attending Physician. cp 19:53 Triage completed. cm10 19:53 Arm band placed on Patient placed in waiting room. cm10 20:03 Bed in low position. Call light in reach. Side rails up X2. cp4 20:03 No provider procedures requiring assistance completed. cp4 20:31 XRAY Chest (1 view) In Process Unspecified. EDMS 20:46 Shelby Campbell, DIPAK is Primary Nurse. go2 20:46 Blood Culture Adult (2) Sent. go2 20:46 CBC with Diff Sent. go2 20:46 CMP Sent. go2 20:46 Lactate w/ 2H reflex if indic. Sent. go2 20:46 Protime (+inr) Sent. go2 20:46 Ptt, Activated Sent. go2 20:47 Influenza Screen (a \T\ B) Sent. go2 20:47 SARS RAPID Sent. go2 20:47 Inserted saline lock: 20 gauge in left antecubital area, using aseptic technique. go2 22:38 CT Chest For PE Angio In Process Unspecified. EDOK 05/20 00:10 Gage Field MD is Hospitalizing Provider. cp 02:20 Provided Education on: admission. cp4 02:20 Patient admitted, IV remains in place. cp4 Administered Medications: 05/19 20:55 Drug: MethylPrednisoLONE IVP 125 mg IVP once Route: IVP; Site: left antecubital; go2 05/20 01:14 Follow up: Response: No adverse reaction cp4 05/19 20:56 Drug: DuoNeb Nebulize (2.5 mg - 0.5 mg) 3 ml Nebulizer once Route: Nebulizer; go2 05/20 01:14 Follow up: Response: No adverse reaction cp4 05/19 22:50 Drug: NS 0.9% IV 1000 ml IV at 1 bolus Per protocol; 1000 mL bolus Route: IV; Rate: 1 cp4 bolus; Site: left antecubital; 05/20 00:11 Follow up: Response: No adverse reaction; IV Status: Completed infusion cp4 00:11 Drug: Rocephin IV 1 grams IV at calculated rate once; Given slow IV push per pharmacy cp4 instructions Route: IV; Rate: calculated rate; Site: left antecubital; 00:11 Drug: AZITHromycin PO 500 mg PO once Route: PO; cp4 Medication: 05/19 20:03 VIS not applicable for this client. cp4 Outcome: 05/20 00:11 Decision to Hospitalize by Provider. cp 02:20 Admitted to Med/surg accompanied by tech, via wheelchair, with chart, cp4 02:20 Condition: stable 02:20 Instructed on the need for admit, 02:21 Patient left the ED. cp4 Signatures: Dispatcher [employer] EDOK Mauri Villeda PA PA cp Rhona Hillj6 Mima Murillo, RN RN cm10 Berna Groves cp4 Shelby Campbell, DIPAK RN go2 Corrections: (The following items were deleted from the chart) 05/19 19:56 19:51 Acuity: KAREN 3 cm10 cm10 19:56 19:53 BP 99 / 72; Pulse 103bpm; Resp 18bpm; Pulse Ox 94% RA; Temp 99.1F Oral; 72.57 kg; cm10 Height 5 ft. 0 in.; BMI: 31.2; cm10
--- NOTE | 2024-05-20 00:11 | EDPHYS ---
Physician Documentation [facility] Name: Kita Sunshine Age: 28 yrs Sex: Female : 1995 Arrival Date: 05/19/2024 Time: 19:36 Bed 4 Private MD: ED Physician Rupesh Tucker HPI: 05/19 20:10 This 28 yrs old Female presents to ER via Ambulatory with complaints of Cough, cp Fever. 20:10 The patient or guardian reports cough. cp 20:10 Onset: The symptoms/episode began/occurred 2 day(s) ago. Severity of symptoms: in the emergency department the symptoms are unchanged, despite home interventions. Associated signs and symptoms: Pertinent positives: fever, Pertinent negatives: chest pain, diarrhea, vomiting. 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 - Infectious Disease History:: Denies. - Social history:: Smoking status: Patient denies any tobacco usage or history of. ROS: 20:15 Constitutional: Positive for fever, cp 20:15 Eyes: Negative for injury, pain, redness, and discharge, cp 20:15 Respiratory: Positive for cough, shortness of breath, 20:15 Abdomen/GI: Negative for abdominal pain, vomiting, diarrhea, constipation, 20:15 Skin: Negative for rash, 20:15 Neuro: Negative for altered mental status, dizziness, headache, weakness, 20:15 All other systems are negative, Exam: 20:20 Constitutional: The patient appears in no acute distress, alert, awake, non-toxic, well cp developed, well nourished, obese, 20:20 Head/Face: Normocephalic, atraumatic. cp 20:20 Eyes: Periorbital structures: appear normal, Conjunctiva: normal, no exudate, no injection, Sclera: no appreciated abnormality, Lids and lashes: appear normal, bilaterally, 20:20 ENT: External ear(s): are unremarkable, Nose: is normal, Mouth: Lips: moist, Oral mucosa: moist, Posterior pharynx: Airway: no evidence of obstruction, patent, 20:20 Chest/axilla: Inspection: normal, 20:20 Cardiovascular: Rate: tachycardic, Rhythm: regular, Edema: is not appreciated, JVD: is not appreciated, 20:20 Respiratory: the patient does not display signs of respiratory distress, Respirations: shallow respirations, that is mild, Breath sounds: decreased breath sounds, that are mild, throughout, stridor, is not appreciated, wheezing: is not appreciated, 20:20 Abdomen/GI: Exam negative for discomfort, distension, guarding, Inspection: abdomen appears normal, 20:20 Back: pain, is absent, ROM is normal, 20:20 Neuro: Orientation: to person, place \T\ time. Mentation: able to follow commands, 20:53 ECG was reviewed by the Attending Physician. cp Vital Signs: 19:53 BP 99 / 72; Pulse 103; Resp 18; Temp 99.1(O); Pulse Ox 83% on R/A; Weight 72.57 kg; cm10 Height 5 ft. 0 in. ; 20:57 BP 103 / 62; Pulse 105; Resp 20; Temp 98.3; Pulse Ox 95% ; go2 22:00 BP 98 / 78; Pulse 100; Resp 18; Pulse Ox 99% on 2 lpm NC; cp4 23:00 BP 100 / 82; Pulse 89; Resp 18; Pulse Ox 94% on 2 lpm NC; cp4 05/20 00:00 BP 98 / 73; Pulse 86; Resp 18; Pulse Ox 97% on 2 lpm NC; cp4 01:00 BP 113 / 82; Pulse 105; Resp 18; Pulse Ox 94% on 2 lpm NC; cp4 05/19 19:53 Body Mass Index 31.25 (72.57 kg, 152.4 cm) cm10 MDM: 05/19 19:51 Patient medically screened. cp 23:50 Data reviewed: vital signs, nurses notes, lab test result(s), EKG, radiologic studies, cp CT scan, plain films, and as a result, I will admit patient. 23:50 Differential Diagnosis: Bronchitis Influenza Otitis Media Viral Syndrome Pneumonia. cp Management of patient was discussed with the following: Hospitalist: DR Field will admit after discussion. I considered the following discharge prescriptions or medication management in the emergency department Medications were administered in the Emergency Department. See MAR. Counseling: I had a detailed discussion with the patient and/or guardian regarding the historical points, exam findings, and any diagnostic results supporting the discharge/admit diagnosis, lab results, radiology results, the need for further work-up and treatment in the hospital. Response to treatment: the patient's symptoms have mildly improved after treatment. 05/19 20:05 Order name: SARS RAPID; Complete Time: 21:58 cp 05/19 20:05 Order name: Influenza Screen (a \T\ B); Complete Time: 21:58 cp 05/19 20:05 Order name: Blood Culture Adult (2) cp 05/19 20:05 Order name: CBC with Diff; Complete Time: 21:58 cp 05/19 21:58 Interpretation: Normal except: RBC 5.00; BARBI% 78.1; LYM% 13.1. cp 05/19 20:05 Order name: CMP; Complete Time: 21:58 cp 05/19 21:59 Interpretation: Normal except: K 3.4; CL 109; AST 44; ALT 71; TP 8.3; GLOB 4.5; A/G cp 0.8; BILIT 1.3. 05/19 20:05 Order name: Lactate w/ 2H reflex if indic.; Complete Time: 21:58 cp 05/19 20:05 Order name: Protime (+inr); Complete Time: 21:58 cp 05/19 20:05 Order name: Ptt, Activated; Complete Time: 21:58 cp 05/19 20:05 Order name: Urinalysis w/ reflexes cp 05/19 20:05 Order name: Test, Urine cp 05/19 21:04 Order name: Glucose, Ancillary Testing; Complete Time: 21:58 EDMS 05/20 00:59 Order name: Creatine Phosphokinase EDMS 05/20 00:59 Order name: Thyroid Stimulating Hormone EDMS 05/20 00:59 Order name: Troponin High Sensitivity EDMS 05/20 00:59 Order name: CBC with Automated Diff EDMS 05/20 00:59 Order name: CBC with Automated Diff EDMS 05/20 00:59 Order name: Comprehensive Metabolic Panel EDMS 05/20 01:00 Order name: Comprehensive Metabolic Panel EDMS 05/20 01:00 Order name: Magnesium EDMS 05/20 01:00 Order name: Magnesium EDMS 05/20 01:00 Order name: Magnesium EDMS 05/20 01:00 Order name: Magnesium [facility] 05/20 01:00 Order name: Blood Culture [facility] 05/20 01:00 Order name: Sputum Culture [facility] 05/20 01:00 Order name: Sputum Gram Stain [facility] 05/19 20:05 Order name: XRAY Chest (1 view); Complete Time: 21:58 cp 05/19 22:01 Order name: CT Chest For PE Angio cp 05/19 20:05 Order name: Accucheck; Complete Time: 20:55 cp 05/19 20:05 Order name: Cardiac monitoring; Complete Time: 20:56 cp 05/19 20:05 Order name: EKG - Nurse/Tech; Complete Time: 20:50 cp 05/19 20:05 Order name: IV Saline Lock - Large Bore; Complete Time: 20:46 cp 05/19 20:05 Order name: Labs collected and sent; Complete Time: 20:46 cp 05/19 20:05 Order name: O2 Per Protocol; Complete Time: 20:46 cp 05/19 20:05 Order name: O2 Sat Monitoring; Complete Time: 20:46 cp 05/19 20:05 Order name: Vital Signs; Complete Time: 20:55 cp 05/19 22:00 Order name: PO challenge; Complete Time: 22:50 cp EC:53 Rate is 100 beats/min. Rhythm is regular. NH interval is normal. QRS interval is cp prolonged at 110 msec. QT interval is normal. T waves are Inverted in leads III, aVR, V2, V3. Interpreted by me. Reviewed by me. Administered Medications: 20:55 Drug: MethylPrednisoLONE IVP 125 mg IVP once Route: IVP; Site: left antecubital; 2 05/20 01:14 Follow up: Response: No adverse reaction 4 05/19 20:56 Drug: DuoNeb Nebulize (2.5 mg - 0.5 mg) 3 ml Nebulizer once Route: Nebulizer; 2 05/20 01:14 Follow up: Response: No adverse reaction 4 05/19 22:50 Drug: NS 0.9% IV 1000 ml IV at 1 bolus Per protocol; 1000 mL bolus Route: IV; Rate: 1 cp4 bolus; Site: left antecubital; 05/20 00:11 Follow up: Response: No adverse reaction; IV Status: Completed infusion cp4 00:11 Drug: Rocephin IV 1 grams IV at calculated rate once; Given slow IV push per pharmacy cp4 instructions Route: IV; Rate: calculated rate; Site: left antecubital; 00:11 Drug: AZITHromycin PO 500 mg PO once Route: PO; cp4 Disposition: 02:55 Co-signature as Attending Physician, Rupesh Tucker MD I reviewed the patient's care rn provided by the Advanced Practice Provider and agree with the diagnosis and treatment plan. Disposition Summary: 05/20/24 00:11 Hospitalization Ordered Notes: Hospitalization Status: Inpatient Admission cp Provider: Gage Field cp Location: Telemetry/MedSurg (Inpatient) cp Condition: Stable cp Problem: new cp Symptoms: have improved cp Bed/Room Type: Standard cp Room Assignment: 406(05/20/24 01:01) Diagnosis - Pneumonia, unspecified organism cp - Hypoxemia cp Forms: - Medication Reconciliation Form cp - SBAR form cp - Leadership Thank You Letter cp Signatures: Dispatcher [employer] EDRupesh Scott MD MD rn Page, Corey, PA PA cp Britany Perez RN RN Mima Damon RN RN cm10 Berna Groves cp4 Shelby Campbell RN RN go2 Corrections: (The following items were deleted from the chart) 05/19 20:06 20:05 SARS-COV-2 Antigen Rapid+I.LAB.BRZ ordered. EDCT EDCT 20:06 20:05 Influenza Screen (A \T\ B)+BA.LAB.BRZ ordered. EDCT EDCT 20: 20:05 BLOOD CULTURE*+BA.LAB.BRZ ordered. EDCT EDCT 20: 20:05 CBC+H.LAB.BRZ ordered. EDCT EDCT 20: 20:05 COMPREHENSIVE METABOLIC PANEL+C.LAB.BRZ ordered. EDCT EDCT 20: 20:05 LACTATE+C.LAB.BRZ ordered. EDCT EDCT 20:06 20:05 PROTIME (+INR)+COAG.LAB.BRZ ordered. EDCT EDCT 20: 20:05 PTT, ACTIVATED+COAG.LAB.BRZ ordered. EDCT EDCT 20:06 20:05 Urinalysis+U.LAB.BRZ ordered. EDCT EDCT 20: 20:06 Test, Urine+UC.LAB.BRZ ordered. EDMS EDMS 20: 20:06 Chest Single View+RAD.RAD.BRZ ordered. EDMS EDMS 05/20 01:01 00:11 cp cg
[2024-05-20] MEDS ORDERED: MORPHINE 2 MG/ML SYR IV PRN (00:53)
[2024-05-20] MEDS ORDERED: ACETAMINOPHEN 500 MG TAB PO PRN (00:53)
[2024-05-20] MEDS ORDERED: ONDANSETRON 4 MG/2 ML VIAL IV PRN (00:53)
[2024-05-20] MEDS ORDERED: HYDRALAZINE HCL 20 MG/ML VIAL IV PRN (00:56)
[2024-05-20] MEDS ORDERED: ALBUTEROL 2.5 MG/3 ML NEB SOL NEB SCH ×2 (01:00→02:00)
--- NOTE | 2024-05-20 01:04 | P.HP ---
Certification for Inpatient With expected LOS: <2 Midnights Patient will require the following post-hospital care: None Practitioner: I am a practitioner with admitting privileges, knowledge of patient current condition, hospital course, and medical plan of care. Services: Services provided to patient in accordance with Admission requirements found in Title 42 Section 412.3 of the Code of Federal Regulations Patient History Date of Service: 05/20/24 Reason for admission: Fever, cough History of Present Illness: 28-year-old intellectually disabled with past medical history of HLD cholecystectomy presented to the hospital because of nasal congestion, cough productive of yellowish sputum, fever with chills as well as sore mild shortness of breath since the last 3 days. No recent cough contact. No reported chest pain. She thinks she may have vomited although mother at bedside state she did not think it was vomit but sputum secretion. On arrival in the ED patient was noted with hypoxia with sats of 83% on room air, O2 sat improved with supplemental oxygen. Low grade fever of 99.1, blood pressure was soft at 99/72 with pulse of 103. WBC was normal with no diffe rential changes except for mild neutrophilia of 78%, BMP was unremarkable except for low potassium of 3.4. There was also noted mild AST and ALT elevation at 44 and 71 respectively. Chest x-ray shows no acute infiltrate. CTA of the chest to rule out PE shows no evidence of PE but atypical pneumonia. Patient is being admitted for atypical pneumonia with acute respiratory failure. Allergies No Known Drug Allergies Allergy (Unverified 02/19/15 14:57) Unknown Mental Retardation Allergy (Uncoded 03/23/16 13:38) Unknown No Known Allergies Allergy (Uncoded 08/24/17 20:34) Unknown Home medications list reviewed: No - Past Medical/Surgical History Has patient received pneumonia vaccine in the past: No -: Intellectually disabled -: Cholecystectomy - Family History Family History: Reviewed- Non-Contributory - Social History Smoking Status: Never smoker Smoking therapy provided: No Patient receptive to therapy: No Alcohol use: No CD- Drugs: No Place of Residence: Home Review of Systems 10-point ROS is otherwise unremarkable Physical Examination - Physical Exam General: Alert, In no apparent distress, Oriented x3, Mild distress, Other (ON 02 ) HEENT: Atraumatic, Normocephalic, PERRLA Neck: Supple, 2+ carotid pulse no bruit, JVD not distended Respiratory: Crackles/rales, Expiratory wheezes Cardiovascular: Normal pulses, Regular rate/rhythm, Normal S1 S2 Gastrointestinal: Normal bowel sounds, Soft and benign, Non-distended, No tenderness Musculoskeletal: No clubbing, No swelling Integumentary: No rashes, No breakdown Neurological: Normal speech, Sensation intact, Normal reflexes 2+ - Studies Laboratory Data (last 24 hrs) 05/19/24 05/19/24 05/19/24 20:37 20:37 20:37 WBC 9.80 Hgb 14.6 Hct 44.7 Plt Count 185 PT 13.0 H INR 1.17 APTT 33.4 Sodium 143 Potassium 3.4 L BUN 9 Creatinine 0.80 Glucose 104 Total Bilirubin 1.3 H AST 44 H ALT 71 H Alkaline Phosphatase 117 Microbiology Data (last 24 hrs): 05/19/24 20:37 Nasopharnyx Influenza Type A Antigen Screen - Final 05/19/24 20:37 Nasopharnyx Influenza Type B Antigen Screen - Final Assessment and Plan - Problems (Diagnosis) (1) Atypical pneumonia Current Visit: Yes Status: Acute (2) Acute respiratory failure Current Visit: Yes Status: Acute - Plan Impression Atypical pneumonia Acute sepsis Acute respiratory failure with hypoxia Intellectually disabled status Hypokalemia LFT elevation Plan Atypical pneumoniawill start patient on empirical cefepime Blood culture Sputum culture with culture sensitivity if feasible Tylenol as needed for fever Wean O2 as tolerated Will add low-dose steroids since atypical, possible viral COVID screen negative, follow-up pending flu swab Acute respiratory failure with hypoxiasupplemental O2 Follow-up with antibiotics use Wean O2 as tolerated Acute sepsisstart gentle IV fluid with lactated Ringer's We will replete potassium Mild elevated LFTs that may be due to viral pneumonia, follow LFT trend Dispositionpossible hospital stay for more than 48 hours - Advance Directives Does patient have a Living Will: No Does patient have a Durable POA for Healthcare: No Physician Review: Patient Assessed, Agree with Above Assessment and Plan Time Spent Managing Pts Care (In Minutes): 65
[2024-05-20] MEDS ORDERED: IPRATROPIUM BROM 0.5MG/2.5ML ONE (01:41)
[2024-05-20] MEDS: IPRATROPIUM BROM 0.5MG/2.5ML NEB SCH (01:45)
[2024-05-20 02:56] VITALS: BMI 32.0
[2024-05-20] MEDS ORDERED: ALBUTEROL 2.5 MG/3 ML NEB SOL NEB PRN (04:29)
[2024-05-20 05:09] LABS: Troponin High Sensitivity 3.4 pg/mL (<58.9)
[2024-05-20 05:12] LABS: Magnesium 2.4 mg/dL (1.6-2.4); Thyroid Stimulating Hormone 0.215 uIU/mL (0.358-3.740)
[2024-05-20] MEDS: Ringers Lactate 1,000 ML IV SCH (06:15)
[2024-05-20] MEDS: METHYLPREDNISOLONE 125 MG INJ IV SCH (06:15)
[2024-05-20] MEDS: BENZONATATE 100 MG CAP PO PRN (07:57)
[2024-05-20] MEDS: GUAIFENESIN 600 MG SA TAB PO SCH (07:57)
[2024-05-20] MEDS: ZINC SULFATE 220 MG CAP PO SCH (07:58)
[2024-05-20] MEDS: FAMOTIDINE 20 MG TAB PO SCH (07:58)
[2024-05-20] MEDS: CEFEPIME 1 GM in NA CHLORIDE 0.9% 100 ML IV SCH (07:58)
[2024-05-20 12:13] LABS: Absolute Monocytes 0.4 K/uL (0.1-1.3); Absolute Neutrophil 9.1 K/uL (1.8-8.0); Basophils % 0.1 % (0-1.3); Hematocrit 38.9 % (36.0-45.0); Hemoglobin 12.5 g/dL (12.0-15.0); Lymphocytes % 9.3 % (15.3-44.8); MCHC 32.2 g/dL (32.0-36.0); MCV 89.9 fL (80-100); MPV 9.5 fL (7.6-11.3); Monocytes % 3.4 % (3.3-12.3); Neutrophils % 87.2 % (41.7-73.7); Platelets 150 thou/uL (152-406); RBC Red Blood Cell Count 4.33 M/uL (3.86-4.86); Red Cell Distribution Width 14.2 % (12.1-15.2)
--- NOTE | 2024-05-20 12:22 | P.CNS ---
Date of Consult: 05/20/24 Reason for Consult: Hypoxemia pneumonia Chief Complaint: Fever, cough History of Present Illness: Patient is 28 years of age very poor historian intellectually disabled admitted to the hospital with hypoxemia shortness of breath and cough for the past 3 days patient seems to be doing better although is difficult to communicate with that she is improving slight right upper lobe infiltrate noted Allergies No Known Drug Allergies Allergy (Unverified 02/19/15 14:57) Unknown - Past Medical/Surgical History Diabetic: No -: Intellectually disabled -: hypercholerstermia -: Cholecystectomy - Social History Alcohol use: No CD- Drugs: No Place of Residence: Home Review of Systems is unable to be obtained Physical Examination Temp Pulse Resp BP Pulse Ox 96.5 F L 99 H 18 113/78 94 05/20/24 08:00 05/20/24 08:00 05/20/24 08:00 05/20/24 08:00 05/20/24 08:00 General: Alert, Cooperative Respiratory: Clear to auscultation bilaterally Cardiovascular: No edema, Regular rate/rhythm Laboratory Data (last 24 hrs) 05/19/24 05/19/24 05/19/24 20:37 20:37 20:37 WBC 9.80 Hgb 14.6 Hct 44.7 Plt Count 185 PT 13.0 H INR 1.17 APTT 33.4 Sodium 143 Potassium 3.4 L BUN 9 Creatinine 0.80 Glucose 104 Total Bilirubin 1.3 H AST 44 H ALT 71 H Alkaline Phosphatase 117 - Problems (1) Atypical pneumonia Current Visit: Yes Status: Acute Plan: Patient is 28 years of age admitted with atypical right upper lobe pneumonia and was hypoxic on admission most likely atypical pneumonia labs chemistries reviewed patient was hypoxic on admission signs oxygenation now stable can discharge home cefuroxime and azithromycin his oxygenation is satisfactory stable for discharge
[2024-05-20 12:29] LABS: Albumin 3.4 g/dL (3.4-5.0); Albumin/Globulin Ratio 0.9 (1.1-1.8); Anion Gap 9.6 mEq/L (5.0-15.0); Bilirubin Direct 0.2 mg/dL (0-0.2); Bilirubin Indirect, Calculated 0.6 mg/dL (0.2-0.8); Bilirubin Total 0.8 mg/dL (0.2-1.0); Magnesium 2.2 mg/dL (1.6-2.4); Potassium 3.6 mEq/L (3.5-5.1); Protein, Total 7.4 g/dL (6.4-8.2)
--- NOTE | 2024-05-20 16:30 | P.PN ---
Date of Service: 05/20/24 Patient seen on rounds this morning Reports slight improvement in her breathing Continues with productive cough, with coughing episodes frequently Body aches, not much appetite Remains slightly tachycardic. LFTs mildly elevated, unclear etiology continue antibiotics, steroids, nebs anticipate dc tomorrow if continues to improve / afebrile
[2024-05-20 20:22] LABS: Specific Gravity 1.008 (1.005-1.030); Urine Bilirubin NEGATIVE (Negative); Urine Blood Negative (Negative); Urine Clarity Clear (Clear); Urine Color Colorless (Yellow); Urine Glucose NEGATIVE (Negative); Urine Ketones NEGATIVE (Negative); Urine Microscopic Reflex YN NO UMIC; Urine Nitrite NEGATIVE (Negative); Urine Protein NEGATIVE (Negative); Urine Urobilinogen Normal (Normal); Urine pH 6.5 (5.0-7.0)
[2024-05-21 07:47] LABS: Albumin 3.2 g/dL (3.4-5.0); Albumin/Globulin Ratio 0.8 (1.1-1.8); Anion Gap 11.3 mEq/L (5.0-15.0); Bilirubin Total 0.3 mg/dL (0.2-1.0); Globulin 3.9 g/dL (2.3-3.5); Magnesium 2.3 mg/dL (1.6-2.4); Potassium 4.3 mEq/L (3.5-5.1); Protein, Total 7.1 g/dL (6.4-8.2)
[2024-05-21 08:21] LABS: Absolute Lymphocytes (CBC) 1.3 K/uL (0.7-4.9); Absolute Monocytes 0.2 K/uL (0.1-1.3); Absolute Neutrophil 10.4 K/uL (1.8-8.0); Basophils % 0.1 % (0-1.3); Eosinophils % 0.1 % (0-4.4); Hematocrit 37.4 % (36.0-45.0); Hemoglobin 12.3 g/dL (12.0-15.0); Lymphocytes % 10.7 % (15.3-44.8); MCH 29.6 pg (27.0-35.0); MCV 89.7 fL (80-100); MPV 9.9 fL (7.6-11.3); Neutrophils % 87.1 % (41.7-73.7); Nucleated RBC Absolute Count 0.1 (0-0); Nucleated Red Blood Cells % 0.5 % (0-0); Platelets 140 thou/uL (152-406); RBC Red Blood Cell Count 4.16 M/uL (3.86-4.86); Red Cell Distribution Width 14.5 % (12.1-15.2)
--- NOTE | 2024-05-21 10:59 | P.DS ---
Admission Date: 05/20/24 Discharge Date: 05/21/24 Reason for Admission: Fever, cough - Problems (1) Acute respiratory failure Current Visit: Yes Status: Acute (2) Atypical pneumonia Current Visit: Yes Status: Acute Brief History of Present Illness: 28-year-old intellectually disabled with past medical history of HLD cholecystectomy presented to the hospital because of nasal congestion, cough productive of yellowish sputum, fever with chills as well as shortness of breath of 3 days duration. On arrival in the ED patient was noted with hypoxia with sats of 83% on room air, O2 sat improved with supplemental oxygen. Low grade fever of 99.1, blood pressure was soft at 99/72 with pulse of 103. WBC was normal with no differenti al changes except for mild neutrophilia of 78%, BMP was unremarkable except for low potassium of 3.4. Chest x-ray showed no acute infiltrate. CTA of the chest to rule out PE showed no evidence of PE but findings suggestive of atypical pneumonia. Patient was admitted for atypical pneumonia with acute respiratory failure. Hospital Course: Patient was admitted to the medical floor and treated with IV cefepime, bronchodilators and IV steroid. Patient was seen and evaluated by pulmonary Dr. Steiner who assisted with management. Patient respiratory symptoms rapidly imp roved with treatment, patient recovered quicker than expected. She is now tolerating room air, has intermittent cough, ambulatory without shortness of breath. Blood cultures negative. Patient is eating well. She is clinically stable for discharge. Vital Signs/Physical Exam: Temp Pulse Resp BP Pulse Ox 97.1 F 77 16 117/70 95 05/21/24 08:00 05/21/24 08:00 05/21/24 08:00 05/21/24 08:00 05/21/24 08:00 General: Alert, In no apparent distress, Oriented x3 HEENT: Mucous membr. moist/pink Neck: Supple, JVD not distended Respiratory: Clear to auscultation bilaterally, Normal air movement Cardiovascular: No edema, Regular rate/rhythm, Normal S1 S2 Gastrointestinal: Normal bowel sounds, Soft and benign, Non-distended, No tenderness Musculoskeletal: No swelling Integumentary: No rashes Neurological: Normal strength at 5/5 x4 extr Laboratory Data at Discharge: WBC 11.90 thou/uL (4.3-10.9) H 05/21/24 08:10 Hgb 12.3 g/dL (12.0-15.0) 05/21/24 08:10 Hct 37.4 % (36.0-45.0) 05/21/24 08:10 Plt Count 140 thou/uL (152-406) L 05/21/24 08:10 PT 13.0 SECONDS (9.4-12.5) H 05/19/24 20:37 INR 1.17 05/19/24 20:37 APTT 33.4 SECONDS (24.3-36.9) 05/19/24 20:37 Sodium 148 mEq/L (136-145) H 05/21/24 06:10 Potassium 4.3 mEq/L (3.5-5.1) D 05/21/24 06:10 BUN 11 mg/dL (7-18) 05/21/24 06:10 Creatinine 0.68 mg/dL (0.55-1.02) 05/21/24 06:10 Glucose 159 mg/dL (74-106) H 05/21/24 06:10 Magnesium 2.3 mg/dL (1.6-2.4) 05/21/24 06:10 Total Bilirubin 0.3 mg/dL (0.2-1.0) 05/21/24 06:10 AST 32 U/L (15-37) 05/21/24 06:10 ALT 64 U/L (13-56) H 05/21/24 06:10 Alkaline Phosphatase 92 U/L (45-117) 05/21/24 06:10 Home Medications: Rosuvastatin Calcium 1 tab PO BEDTIME 05/20/24 Azithromycin [Zithromax] 500 mg PO DAILY #5 tab 05/21/24 Benzonatate [Tessalon Perle*] 200 mg PO TID PRN #30 cap 05/21/24 Cefuroxime Axetil [Cefuroxime] 500 mg PO BID #10 tab 05/21/24 Guaifenesin/Dextromethorphan [Robitussin Cough-Chest Dm Liq] 10 ml PO TID PRN #237 ml 05/21/24 Zinc Sulfate [Zinc Sulfate*] 220 mg PO DAILY #30 cap 05/21/24 New Medications: Cefuroxime Axetil [Cefuroxime] 500 mg PO BID #10 tab Guaifenesin/Dextromethorphan [Robitussin Cough-Chest Dm Liq] 10 ml PO TID PRN #237 ml PRN Reason: Cough Benzonatate [Tessalon Perle*] 200 mg PO TID PRN #30 cap PRN Reason: Cough Zinc Sulfate [Zinc Sulfate*] 220 mg PO DAILY #30 cap Azithromycin [Zithromax] 500 mg PO DAILY #5 tab Diet: Regular Activity: Ad marcus Followup: Claudia Panchal NP [Primary Care Provider] - 1 Week Time spent managing pt's care (in minutes): 32
[2024-05-21 12:19] VITALS: BP 109/62; TEMP 97.2
[2024-05-21 12:33] VITALS: O2SAT 91
--- OUTSIDE RECORDS SUMMARY | 2024-05-21 13:17 | XMS REPORT | Continuity of Care Document ---
Author Name Unknown Address [address] [facility] [address] [place] [address] [facility] thconnect Address [address] [facility] [address] [place] [address] Care Team Providers Care Commutator Undercutter Name Role Phone Claudia Panchal Attending Clinician Unavailable Amelia Gibbons Attending Clinician Unavailable Payers Payer Name Policy Type Policy Number Effective Date Expirati on Date Source [employer] (Medicaid) [id number] 2017 00:00:00 [facility] Problems Condition Name Condition Details Condition Category Status Onset Date Resolution Date Last Treatment Date Treating Clinician Comments Source [id number] Obesity (BMI 30.0-34.9) Problem [facility] [id number] Vitamin D deficiency Problem [facility] [id number] Hypersomni a Problem [facility] [id number] Intellectu al disability Problem [facility] [id number] Hyperlipid emia, unspecifie d hyperlipid emia type Problem [facility] [id number] Difficulty sleeping Problem [facility] [id number] Snoring Problem [facility] [id number] Abdominal pain, unspecifie d abdominal location Problem [facility] Social History Social Habit Start Date Stop Date Quantity Comments Source History of Tobacco Use [facility] Sex Assigned At [facility] Smoking Status Start Date Stop Date Source Never Smoker [facility] Medications Ordered Medication Name Filled Medication Name Start Date Stop Date Current Medication? Ordering Clinician Indication Dosage Frequency Signature (SIG) Comments Components Source Rosuvastati n Calcium 20 MG Rosuvastati n Calcium 20 MG No 1{table t} Rosuvastat in Calcium 20 MG Vitamin D (Cholecalci ferol) 50 MCG (1999) Vitamin D (Cholecalci ferol) 50 MCG (1999) No 1{capsu le} QD Vitamin D (Cholecalc iferol) 50 MCG (1999) Immunizations Ordered Immunization Name Filled Immunization Name Date Status Comments Source Flucelvax - single dose syringe Flucelvax - single dose syringe 2019-07-04 14:03:00 Completed [facility] Flucelvax - single dose syringe Flucelvax - single dose syringe 2019-07-04 14:03:00 Completed [facility] Flucelvax - single dose syringe Flucelvax - single dose syringe 2019-07-04 14:03:00 Completed [facility] Flucelvax - single dose syringe Flucelvax - single dose syringe 2019-07-04 14:03:00 Completed [facility] Flucelvax - single dose syringe Flucelvax - single dose syringe 2019-07-04 14:03:00 Completed [facility] Flucelvax - single dose syringe Flucelvax - single dose syringe 2019-07-04 00:00:00 Completed [facility] Flucelvax - single dose syringe Flucelvax - single dose syringe Unknown Completed [facility] Flucelvax (ccIIV4) - SDS - 0.5mL Flucelvax (ccIIV4) - SDS - 0.5mL Unknown Completed [facility] Flucelvax (ccIIV4) - SDS - 0.5mL Flucelvax (ccIIV4) - SDS - 0.5mL Unknown Completed [facility] Vital Signs Vital Name Observation Time Observation Value Comments Courtney gross height 2024-04-02 13:00:00 59.25 [in_i] Com [facility] weight 2024-04-02 13:00:00 165.4 [facility]lb_av[facility] 2024-04-02 13:00:00 87.4 [degF] Com [facility] bmi 2024-04-02 13:00:00 33.12 kg/m2 Comm on [facility] oximetry 2024-04-02 13:00:00 94 % Commo n [facility] respiratory rate 2024-04-02 13:00:00 16 /min [facility] blood pressure systolic 2024-04-02 13:00:00 122 mm[Hg] [facility] blood pressure diastolic 2024-04-02 13:00:00 66 mm[Hg] [facility] height 2023-09-12 13:00:00 59.25 [in_i] Com [facility] weight 2023-09-12 13:00:00 169.4 [lb_av] Co [facility] temperature 2023-09-12 13:00:00 98.0 [degF] Com [facility] bmi 2023-09-12 13:00:00 33.92 kg/m2 Comm on [facility] oximetry 2023-09-12 13:00:00 95 % Commo n [facility] respiratory rate 2023-09-12 13:00:00 15 /min Common [facility] blood pressure systolic 2023-09-12 13:00:00 82 mm[Hg] [facility] blood [facility] diastolic 2023-09-12 13:00:00 53 mm[Hg] [facility] height 2023-09-12 13:00:00 59.25 [in_i] Com [facility] weight 2023-09-12 13:00:00 169.4 [lb_av] Co [facility] temperature 2023-09-12 13:00:00 98.0 [degF] Com [facility] bmi 2023-09-12 13:00:00 33.92 kg/m2 Comm on [facility] oximetry 2023-09-12 13:00:00 95 % Commo n [facility] respiratory rate 2023-09-12 13:00:00 15 /min Common [facility] blood pressure systolic 2023-09-12 13:00:00 82 mm[Hg] [facility] blood pressure diastolic 2023-09-12 13:00:00 53 mm[Hg] Common [facility] height 2023-03-13 10:00:00 59.25 [in_i] Com [facility] weight 2023-03-13 10:00:00 171.6 [lb_av] Co [facility] temperature 2023-03-13 10:00:00 97.7 [degF] Com [facility] bmi 2023-03-13 10:00:00 34.36 kg/m2 Comm on [facility] oximetry 2023-03-13 10:00:00 95 % Commo n [facility] respiratory rate 2023-03-13 10:00:00 15 /min Common [facility] blood pressure systolic 2023-03-13 10:00:00 83 mm[Hg] Common [facility] blood pressure diastolic 2023-03-13 10:00:00 52 mm[Hg] Common [facility] height 2022-05-17 10:20:00 59.25 [in_i] Com [facility] weight 2022-05-17 10:20:00 176.2 [lb_av] Co [facility] temperature 2022-05-17 10:20:00 96.6 [degF] Com [facility] bmi 2022-05-17 10:20:00 35.28 kg/m2 Comm on [facility] oximetry 2022-05-17 10:20:00 93 % Commo n [facility] respiratory rate 2022-05-17 10:20:00 18 /min Common [facility] blood pressure systolic 2022-05-17 10:20:00 80 mm[Hg] [facility] blood pressure diastolic 2022-05-17 10:20:00 56 mm[Hg] Common [facility] height 2022-02-14 11:00:00 59.25 [in_i] Com [facility] weight 2022-02-14 11:00:00 179.6 [lb_av] Co mmon [facility] temperature 2022-02-14 11:00:00 98.1 [degF] Com [facility] bmi 2022-02-14 11:00:00 35.97 kg/m2 Comm on [facility] oximetry 2022-02-14 11:00:00 94 % Commo n [facility] respiratory rate 2022-02-14 11:00:00 18 /min [facility] blood pressure systolic 2022-02-14 11:00:00 96 mm[Hg] [facility] blood pressure diastolic 2022-02-14 11:00:00 53 mm[Hg] Common [facility] height 2021-11-16 08:40:00 59.25 [in_i] Com [facility] weight 2021-11-16 08:40:00 177 [lb_av] Comm on [facility] temperature 2021-11-16 08:40:00 97.8 [degF] Com [facility] bmi 2021-11-16 08:40:00 35.44 kg/m2 Comm on [facility] oximetry 2021-11-16 08:40:00 93 % Commo n [facility] respiratory rate 2021-11-16 08:40:00 18 /min Common [facility] blood pressure systolic 2021-11-16 08:40:00 97 mm[Hg] [facility] blood pressure diastolic 2021-11-16 08:40:00 60 mm[Hg] [facility] height 2021-08-16 11:00:00 59.25 [in_i] Com [facility] weight 2021-08-16 11:00:00 173 [lb_av] Comm on [facility] temperature 2021-08-16 11:00:00 98.1 [degF] Com [facility] bmi 2021-08-16 11:00:00 34.64 kg/m2 Comm on [facility] oximetry 2021-08-16 11:00:00 94 % Commo n [facility] respiratory rate 2021-08-16 11:00:00 16 /min [facility] blood pressure systolic 2021-08-16 11:00:00 105 mm[Hg] [facility] blood pressure diastolic 2021-08-16 11:00:00 70 mm[Hg] [facility] Encounters Start Date/Time End Date/Time Encounter Type Admission Type Attending Clinicians Care Facility Care Department Encounter ID Source 2024-03-29 10:56:00 [facility] [id number] [facility] 2023-09-12 12:49:00 [facility] [id number] [facility] 2023-09-08 11:29:00 Outpatient Abdulkadir Claudia [facility] [id number] [facility] 2023-03-10 08:09:00 Outpatient Abdulkadir Claudia [facility] [id number] [facility] 2022-12-09 11:41:01 Outpatient Claudai Panchal [facility] [id number] [facility] 2022-05-17 10:21:00 Outpatient Claudia Panchal [facility] [id number] [facility] 2022-05-13 08:42:00 Outpatient [facility] [id number] [facility] 2022-02-11 07:26:00 Outpatient [facility] [id number] [facility] 2021-11-12 07:49:00 Outpatient [facility] [id number] [facility] 2021-10-27 14:12:38 Outpatient [facility] [id number] [facility] 2021-10-27 11:57:42 Outpatient Amelia Gibbons [facility] [id number] [facility] 2021-10-27 11:33:42 Outpatient Amelia Gibbons [facility] [id number] [facility] 2021-10-27 11:18:22 Outpatient Amelia Gibbons [facility] [id number] [facility] 2021-10-27 11:17:59 Outpatient Amelia Gibbons [facility] [id number] [facility] 2021-10-27 11:17:34 Outpatient Amelia Gibbons [facility] [id number] [facility] 2021-10-27 11:00:55 Outpatient Amelia Gibbons [facility] [id number] [facility] 2024-04-02 00:00:00 2024-04-02 00:00:00 OFFICE VISIT ESTAB PT LEVEL 3 [facility] [id number] [facility] 2023-09-12 00:00:00 2023-09-12 00:00:00 OFFICE VISIT ESTAB PT LEVEL 3 [facility] [id number] [facility] 2023-03-13 00:00:00 2023-03-13 00:00:00 OFFICE VISIT ESTAB PT LEVEL 3 [facility] [id number] [facility] 2022-11-02 00:00:00 2022-11-02 00:00:00 (TEL) [facility] [id number] [facility] 2022-05-17 00:00:00 2022-05-17 00:00:00 OFFICE VISIT EST PT LEVEL 3 [facility] [id number] [facility] 2022-02-14 00:00:00 2022-02-14 00:00:00 OFFICE VISIT ESTAB PT LEVEL 4 [facility] [id number] [facility] 2021-11-16 00:00:00 2021-11-16 00:00:00 OFFICE VISIT ESTAB PT LEVEL 4 [facility] [id number] [facility] 2021-08-16 00:00:00 2021-08-16 00:00:00 OFFICE VISIT ESTAB PT LEVEL 4 [facility] [id number] [facility] 2020-07-27 00:00:00 2020-07-27 00:00:00 Outpatient [facility] [id number] [facility] 2020-04-26 12:45:00 2020-04-26 12:45:00 Outpatient [facility] [id number] [facility] 2020-04-16 10:00:00 2020-04-16 10:00:00 Outpatient [facility] [id number] [facility] 2020-01-16 11:15:00 2020-01-16 11:15:00 Outpatient [facility] [id number] [facility] 2019-10-28 18:26:00 2019-10-28 18:26:[address] [facility] [id number] [facility] 2019-10-17 15:45:00 2019-10-17 15:45:[address] [facility] [id number] [facility] 2019-07-04 11:00:00 2019-07-04 11:00:[address] [facility] [id number] [facility] 2019-05-02 14:09:00 2019-05-02 14:09:[address] [facility] [id number] [facility] 2019-05-02 09:25:00 2019-05-02 09:25:[address] [facility] [id number] [facility] 2019-04-29 13:31:00 2019-04-29 13:31:[address] [facility] [id number] [facility] 2019-04-02 10:53:00 2019-04-02 10:53:[address] [facility] [id number] [facility] 2019-03-21 13:20:00 2019-03-21 13:20:[address] [facility] [id number] [facility] 2018-12-19 13:15:00 2018-12-19 13:15:[address] [facility] [id number] [facility] 2018-09-20 15:30:00 2018-09-20 15:30:[address] [facility] [id number] [facility] 2018-06-15 13:15:2018-06-15 13:15:00 Outpatient [facility] [id number] [facility] 2018-03-15 16:00:00 2018-03-15 16:00:00 Outpatient [facility] [id number] [facility] Results Test Description Test Time Test Comments Results Result Co mments Source LIPID [id number] 00:00:00* Test Item Value Reference Range Interpretation Comme nts CHOL/HDLC RATIO (test code = 9830-1) 3.2 (calc) See_Comment N [Automated messa ge] The system which generated this result transmitted reference range: <5.0 (calc). The reference range was not used to interpret this result as normal/abnormal. CHOLESTEROL, TOTAL (test code = 2093-3) 109 mg/dL See_Comment N [Automated message] The system which generated this result transmitted reference range: <200 mg/dL. The reference range was not used to interpret this result as normal/abnormal. HDL CHOLESTEROL (test code = 2085-9) 34 mg/dL See_Comment L [Automated messa ge] The system which generated this result transmitted reference range: > OR = 50 mg/dL. The reference range was not used to interpret this result as normal/abnormal. LDL-CHOLESTEROL (test code = 34767-3) 50 mg/dL (calc) N NON HDL CHOLESTEROL (test code = 10116-5) 75 mg/dL (calc) See_Comment N [Automated message] The system which generated this result transmitted reference range: <130 mg/dL (calc). The reference range was not used to interpret this result as normal/abnormal. TRIGLYCERIDES (test code = 2571-8) 169 mg/dL See_Comment H [Automated messa ge] The system which generated this result transmitted reference range: <150 mg/dL. The reference range was not used to interpret this result as normal/abnormal. CBC (INCLUDES DIFF/PLT)2024-03-26 00:00:00* Test Item Value Reference Range Interpretation Comme nts ABSOLUTE BASOPHILS (test code = 704-7) 31 cells/uL See_Comment N [Automated m essage] The system which generated this result transmitted reference range: 0-200 cells/uL. The reference range was not used to interpret this result as normal/abnormal. ABSOLUTE EOSINOPHILS (test code = 711-2) 79 cells/uL See_Comment N [Automated m essage] The system which generated this result transmitted reference range: 15-500 cells/uL. The reference range was not used to interpret this result as normal/abnormal. ABSOLUTE LYMPHOCYTES (test code = 731-0) 2983 cells/uL See_Comment N [Automated m essage] The system which generated this result transmitted reference range: 850-3900 cells/uL. The reference range was not used to interpret this result as normal/abnormal. ABSOLUTE MONOCYTES (test code = 742-7) 390 cells/uL See_Comment N [Automated m essage] The system which generated this result transmitted reference range: 200-950 cells/uL. The reference range was not used to interpret this result as normal/abnormal. ABSOLUTE NEUTROPHILS (test code = 751-8) 2617 cells/uL See_Comment N [Automated m essage] The system which generated this result transmitted reference range: 3555-1719 cells/uL. The reference range was not used to interpret this result as normal/abnormal. BASOPHILS (test code = 706-2) 0.5 % N EOSINOPHILS (test code = 713-8) 1.3 % N HEMATOCRIT (test code = 4544-3) 42.8 % See_Comment N [Automated messa ge] The system which generated this result transmitted reference range: 35.0-45.0 %. The reference range was not used to interpret this result as normal/abnormal. HEMOGLOBIN (test code = 718-7) 13.5 g/dL See_Comment N [Automated messa ge] The system which generated this result transmitted reference range: 11.7-15.5 g/dL. The reference range was not used to interpret this result as normal/abnormal. LYMPHOCYTES (test code = 736-9) 48.9 % N MCH (test code = 785-6) 29.0 pg See_Comment N [Automated messa ge] The system which generated this result transmitted reference range: 27.0-33.0 pg. The reference range was not used to interpret this result as normal/abnormal. MCHC (test code = 786-4) 31.5 g/dL See_Comment L [Automated messa ge] The system which generated this result transmitted reference range: 32.0-36.0 g/dL. The reference range was not used to interpret this result as normal/abnormal. MCV (test code = 787-2) 92.0 fL See_Comment N [Automated messa ge] The system which generated this result transmitted reference range: 80.0-100.0 fL. The reference range was not used to interpret this result as normal/abnormal. MONOCYTES (test code = 5905-5) 6.4 % N MPV (test code = 776-5) 11.9 fL See_Comment N [Automated messa ge] The system which generated this result transmitted reference range: 7.5-12.5 fL. The reference range was not used to interpret this result as normal/abnormal. NEUTROPHILS (test code = 770-8) 42.9 % N PLATELET COUNT (test code = 777-3) 178 Thousand/uL See_Comment N [Automated message] The system which generated this result transmitted reference range: 140-400 Thousand/uL. The reference range was not used to interpret this result as normal/abnormal. RDW (test code = 788-0) 12.9 % See_Comment N [Automated messa ge] The system which generated this result transmitted reference range: 11.0-15.0 %. The reference range was not used to interpret this result as normal/abnormal. RED BLOOD CELL COUNT (test code = 789-8) 4.65 Million/uL See_Comment N [Automated message] The system which generated this result transmitted reference range: 3.80-5.10 Million/uL. The reference range was not used to interpret this result as normal/abnormal. WHITE BLOOD CELL COUNT (test code = 6690-2) 6.1 Thousand/uL See_Comment N [Automated message] The system which generated this result transmitted reference range: 3.8-10.8 Thousand/uL. The reference range was not used to interpret this result as normal/abnormal.
--- NOTE | 2024-05-21 17:50 | EKG ---
Test Date: 2024-05-19 Test Time: 20:47:10 [employer] Operator: SHANNON MEASUREMENT RESULTS: Intervals: Rate: 100 NM: 192 QRSD: 110 QT: 374 QTc: 482 [place]: P: 51 NM: 192 QRS: -73 T: -3 INTERPRETIVE STATEMENTS: Normal sinus rhythm Low voltage QRS Left anterior fascicular block Nonspecific T wave abnormality Prolonged QT Abnormal ECG Compared to ECG 07/24/2021 16:55:07 Low QRS voltage now present T-wave abnormality now present Prolonged QT interval now present Sinus tachycardia no longer present First degree AV block no longer present Electronically Signed On 05-21-24 17:46:36 CDT by Jayesh Walker
--- NOTE | 2024-05-21 19:34 | RAD REPORT ---
EXAM DESCRIPTION: CT - Chest For Pe Angio - 05/21/2024 2:12 pm CLINICAL HISTORY: The patient is 28 years old and is Female; SOB; Bed Name: 4; TECHNIQUE: Axial computed tomographic angiography images of the chest with intravenous contrast. S agittal and coronal reformatted images were created and reviewed. This CT exam was performed using one or more of the following dose reduction techniques: automated exposure control, adjustment of t he mA and/or kV according to patient size, and/or use of iterative reconstruction technique. MIP re constructed images were created and reviewed. COMPARISON: No relevant prior studies available. FINDINGS: Pulmonary arteries: No pulmonary embolus. Aorta: Normal aorta. No thoracic aortic aneurysm. Lungs: * Solid noncalcified nodular opacity in the posterobasilar left lower lobe, measuring 3.5 cm x 1.7 cm. * Additional 2 nodular opacities in the left lower lobe base, with the largest measuring 1 cm. * 0.7 cm subpleural nodular opacity in the right lower lobe base. * Peribronchial vascular soft tissue in the superior segment of the right lower lobe, and several ill-defined groundglass nodular opacities in the superior and basilar segments of the right lower lob e. Pleural space: No pleural effusion or pneumothorax. Heart: No cardiomegaly or pericardial effusion. Bones/joints: No acute fracture. No aggressive osseous lesion. Soft tissues: Normal body wall soft tissue. Lymph nodes: No enlarged lymph nodes. Gallbladder and bile ducts: Prior cholecystectomy. IMPRESSION: 1. No pulmonary embolus. 2. Bilateral nodular opacities. Largest within the posterior basilar left lower lobe, 3.5 cm x 1.7 cm. In the acute setting, atypical pneumonia is high in the differential. Electronically signed by: Gayatri Hudson MD 05/19/2024 11:30 PM CDT Due to temporary technical issues with the PACS/Fluency reporting system, reports are being signed by the in house radiologists without review as a courtesy to insure prompt reporting. The interpreting radiologist is fully responsible for the content of the report.
== END 2024-05-21 13:15 | disposition home or self-care (01) | DRG 871 ==
LOC: ER 19:36 → ERHOLD 05-20 00:53 → 4TH 05-20 01:29
PROVIDERS: ADMIT Internal Medicine; ATTEND Internal Medicine
DX: A41.9 Sepsis, unspecified organism (principal); J12.9 Viral pneumonia, unspecified; J96.01 Acute respiratory failure with hypoxia; E87.6 Hypokalemia; E78.5 Hyperlipidemia, unspecified; F79 Unspecified intellectual disabilities; R79.89 Other specified abnormal findings of blood chemistry; Z11.52 Encounter for screening for COVID-19; Z90.49 Acquired absence of other specified parts of digestive tract
CPT/HCPCS: 36415; 71045; 71275; 80048; 80053; 80076; 81003; 81025; 82550; 82947; 83605; 83735; 84443; 84484; 85025; 85610; 85730; 87040; 87070; 87205; 87804; 87811; 93005; 94640; 96361; 96374; 96375; 99285; J0692; J0696; J2919; J7030; J7120; J7613; J7644; Q9967

== ENCOUNTER 2024-12-10 13:16 | Inpatient (IN) | payer OTHER ==
--- OUTSIDE RECORDS SUMMARY | 2024-12-10 13:20 | XMS REPORT | Continuity of Care Document ---
Author Name Unknown Address [address] [facility] [address] [place] [address] [facility] Address [address] [facility] [address] [place] [address] Care Team Providers Care Orthotics Prosthetics Technician Name Role Phone Claudia Panchal Attending Clinician Unavailable Amelia Gibbons Attending Clinician Unavailable Payers Payer Name Policy Type Policy Number Effective Date Expirati on Date Source [employer] (Medicaid) [id number] 2017 00:00:00 [facility] Problems Condition Name Condition Details Condition Category Status Onset Date Resolution Date Last Treatment Date Treating Clinician Comments Source [id number] Obesity (BMI 30.0-34.9) Problem [facility] [id number] Vitamin D deficiency Problem [facility] [id number] Hypersomni a Problem [facility] [id number] Intellectu al disability Problem [facility] [id number] Hyperlipid emia, unspecifie d hyperlipid emia type Problem [facility] [id number] Difficulty sleeping Problem [facility] [id number] Snoring Problem [facility] [id number] Abdominal pain, unspecifie d abdominal location Problem [facility] Social History Social Habit Start Date Stop Date Quantity Comments Source History of Tobacco Use [facility] Sex Assigned At [facility] Smoking Status Start Date Stop Date Source Never Smoker [facility] Medications Ordered Medication Name Filled Medication Name [...] - single dose syringe 2019-07-04 14:03:00 Completed [facility] Flucelvax - single dose syringe Flucelvax - single dose syringe 2019-07-04 14:03:00 Completed [facility] Flucelvax - single dose syringe Flucelvax - single dose syringe 2019-07-04 14:03:00 Completed [facility] Flucelvax - single dose syringe Flucelvax - single dose syringe 2019-07-04 00:00:00 Completed [facility] Flucelvax - single dose syringe Flucelvax - single dose syringe Unknown Completed [facility] Flucelvax (ccIIV4) - SDS - 0.5mL Flucelvax (ccIIV4) - SDS - 0.5mL Unknown Completed [facility] Flucelvax (ccIIV4) - SDS - 0.5mL Flucelvax (ccIIV4) - SDS - 0.5mL Unknown [facility] Vital Signs Vital Name Observation Time Observation Value Comments S ource height 2024-04-02 13:00:00 59.25 [in_i] Com mon [facility] weight 2024-04-02 13:00:00 165.4 [lb_av] Co mmon [facility] temperature 2024-04-02 13:00:00 87.4 [degF] Com [facility] bmi 2024-04-02 13:00:00 33.12 kg/m2 Comm on [facility] oximetry 2024-04-02 13:00:00 94 % Commo n [facility] respiratory rate 2024-04-02 13:00:00 16 /min Common [facility] blood pressure systolic 2024-04-02 13:00:00 122 mm[Hg] Common [facility] blood pressure diastolic 2024-04-02 13:00:00 66 mm[Hg] [facility] height 2023-09-12 13:00:00 59.25 [in_i] Com [facility] weight 2023-09-12 13:00:00 169.4 [lb_av] Co mmon [facility] temperature 2023-09-12 13:00:00 98.0 [degF] Com [facility] bmi 2023-09-12 13:00:00 33.92 kg/m2 Comm on [facility] oximetry 2023-09-12 13:00:00 95 % Commo n [facility] respiratory rate 2023-09-12 13:00:00 15 /min [facility] blood pressure systolic 2023-09-12 13:00:00 82 mm[Hg] Common [facility] blood pressure diastolic 2023-09-12 13:00:00 53 mm[Hg] [facility] height 2023-09-12 13:00:00 59.25 [in_i] Com [facility] weight 2023-09-12 13:00:00 169.4 [lb_av] Co [facility] temperature 2023-09-12 13:00:00 98.0 [degF] Com [facility] bmi 2023-09-12 13:00:00 33.92 kg/m2 Comm on [facility] oximetry 2023-09-12 13:00:00 95 % Commo n [facility] respiratory rate 2023-09-12 13:00:00 15 /min [facility] blood pressure systolic 2023-09-12 13:00:00 82 mm[Hg] Common [facility] blood pressure diastolic 2023-09-12 13:00:00 53 mm[Hg] Common [facility] height 2023-03-13 10:00:00 59.25 [in_i] Com [facility] weight 2023-03-13 10:00:00 171.6 [lb_av] Co [facility] temperature 2023-03-13 10:00:00 97.7 [degF] Com [facility] bmi 2023-03-13 10:00:00 34.36 kg/m2 Comm on [facility] oximetry 2023-03-13 10:00:00 95 % Commo n [facility] respiratory rate 2023-03-13 10:00:00 15 /min [facility] blood pressure systolic 2023-03-13 10:00:00 83 mm[Hg] Common [facility] blood pressure diastolic 2023-03-13 10:00:00 52 mm[Hg] [facility] height 2022-05-17 10:20:00 59.25 [in_i] Com [facility] weight 2022-05-17 10:20:00 176.2 [lb_av] Co [facility] temperature 2022-05-17 10:20:00 96.6 [degF] Com [facility] bmi 2022-05-17 10:20:00 35.28 kg/m2 Comm on [facility] oximetry 2022-05-17 10:20:00 93 % Commo n [facility] respiratory rate 2022-05-17 10:20:00 18 /min Common [facility] blood pressure systolic 2022-05-17 10:20:00 80 mm[Hg] [facility] blood pressure diastolic 2022-05-17 10:20:00 56 mm[Hg] Common [facility] height 2022-02-14 11:00:00 59.25 [in_i] Com [facility] weight 2022-02-14 11:00:00 179.6 [lb_av] Co mmon [facility] temperature 2022-02-14 11:00:00 98.1 [degF] Com [facility] bmi 2022-02-14 11:00:00 35.97 kg/m2 Comm on [facility] oximetry 2022-02-14 11:00:00 94 % Commo n [facility] respiratory rate 2022-02-14 11:00:00 18 /min [facility] blood pressure systolic 2022-02-14 11:00:00 96 mm[Hg] [facility] blood pressure diastolic 2022-02-14 11:00:00 53 mm[Hg] Common [facility] height 2021-11-16 08:40:00 59.25 [in_i] Com [facility] weight 2021-11-16 08:40:00 177 [lb_av] Comm on [facility] temperature 2021-11-16 08:40:00 97.8 [degF] Com [facility] bmi 2021-11-16 08:40:00 35.44 kg/m2 Comm on [facility] oximetry 2021-11-16 08:40:00 93 % Commo n [facility] respiratory rate 2021-11-16 08:40:00 18 /min [facility] blood pressure systolic 2021-11-16 08:40:00 97 mm[Hg] Common [facility] blood pressure diastolic 2021-11-16 08:40:00 60 mm[Hg] [facility] height 2021-08-16 11:00:00 59.25 [in_i] Com [facility] weight 2021-08-16 11:00:00 173 [lb_av] Comm on [facility] temperature 2021-08-16 11:00:00 98.1 [degF] Com [facility] bmi 2021-08-16 11:00:00 34.64 kg/m2 Comm on [facility] oximetry 2021-08-16 11:00:00 94 % Commo n [facility] respiratory rate 2021-08-16 11:00:00 16 /min [facility] blood pressure systolic 2021-08-16 11:00:00 105 mm[Hg] [facility] blood pressure diastolic 2021-08-16 11:00:00 70 mm[Hg] [facility] Encounters Start Date/Time End Date/Time Encounter Type Admission Type Attending [facility] Care Facility Care Department Encounter ID Source 2024-11-06 14:46:00 Outpatient Claudia Panchal ST[facility] [id number] [facility] 2024-11-05 10:31:00 Outpatient Claudia Panchal [facility] [id number] [facility] 2024-10-03 14:16:00 Outpatient Claudia PanchalLC STLC [id number] [facility] 2024-03-29 10:56:00 Outpatient Claudia Panchal ST[facility] [id number] [facility] 2023-09-12 12:49:00 Outpatient Claudia PanchalLC STLMLC [id number] [facility] 2023-09-08 11:29:00 Outpatient Claudia Panchal STLC STLMLC [id number] [facility] 2023-03-10 08:09:00 Outpatient Claudia Panchal STLMLC STLMLC [id number] [facility] 2022-12-09 11:41:01 Outpatient Claudia Panchal STLMLC STLMLC [id number] [facility] 2022-05-17 10:21:00 Outpatient Claudia Panchal STLMLC STLMLC [id number] [facility] 2022-05-13 08:42:00 Outpatient STLMLC STLMLC [id number] [facility] 2022-02-11 07:26:00 Outpatient STLMLC STLMLC [id number] [facility] 2021-11-12 07:49:00 Outpatient STLMLC STLMLC [id number] [facility] 2021-10-27 14:12:38 Outpatient STLMLC STLMLC [id number] [facility] 2021-10-27 11:57:42 Outpatient Amelia Gibbons STLMLC STLMLC [id number] [facility] 2021-10-27 11:33:42 Outpatient Levi Gibbonsen STLMLC STLMLC [id number] [facility] 2021-10-27 11:18:22 Outpatient Amelia Gibbons STLMLC STLMLC [id number] [facility] 2021-10-27 11:17:59 Outpatient Levi Gibbonsen STLMLC STLMLC [id number] [facility] 2021-10-27 11:17:34 Outpatient Levi Gibbonsen STLMLC STLMLC [id number] [facility] 2021-10-27 11:00:55 Outpatient Amelia Gibbons STLMLC STLMLC [id number] [facility] 2024-10-03 00:00:00 2024-10-03 00:00:00 (TEL) STLMLC STLMLC [id number] [facility] 2024-04-02 00:00:00 2024-04-02 00:00:00 OFFICE VISIT ESTAB PT LEVEL 3 STLMLC STLMLC [id number] [facility] 2023-09-12 00:00:00 2023-09-12 00:00:00 OFFICE VISIT ESTAB PT LEVEL 3 STLMLC STLMLC [id number] [facility] 2023-03-13 00:00:00 2023-03-13 00:00:00 OFFICE VISIT ESTAB PT LEVEL 3 STLMLC STLMLC [id number] [facility] 2022-11-02 00:00:00 2022-11-02 00:00:00 (TEL) STLMLC STLMLC [id number] [facility] 2022-05-17 00:00:00 2022-05-17 00:00:00 OFFICE VISIT EST PT LEVEL 3 STLMLC STLMLC [id number] [facility] 2022-02-14 00:00:00 2022-02-14 00:00:00 OFFICE VISIT ESTAB PT LEVEL 4 STLMLC STLMLC [id number] [facility] 2021-11-16 00:00:00 2021-11-16 00:00:00 OFFICE VISIT ESTAB PT LEVEL 4 STLMLC STLMLC [id number] [facility] 2021-08-16 00:00:00 2021-08-16 00:00:00 OFFICE VISIT ESTAB PT LEVEL 4 STLMLC STLMLC [id number] [facility] 2020-07-27 00:00:00 2020-07-27 00:00:00 Outpatient STLMLC STLMLC [id number] [facility] 2020-04-26 12:45:00 2020-04-26 12:45:00 Outpatient Lesli t [facility] [place] [facility] [id number] [facility] 2020-04-16 10:00:00 2020-04-16 10:00:[address] [facility] [id number] [facility] 2020-01-16 11:15:00 2020-01-16 11:15:[address] [facility] [facility] [id number] [facility] 2019-10-28 18:26:00 2019-10-28 18:26:[address] [facility] [id number] [facility] 2019-10-17 15:45:00 2019-10-17 15:45:[address] [facility] [place] [facility] [id number] [facility] 2019-07-04 11:00:00 2019-07-04 11:00:[address] [facility] [id number] [facility] 2019-05-02 14:09:00 2019-05-02 14:09:00 [facility] [id number] [facility] 2019-05-02 09:25:00 2019-05-02 09:25:[address] [facility] [id number] [facility] 2019-04-29 13:31:00 2019-04-29 13:31:[address] [facility] [facility] [id number] [facility] 2019-04-02 10:53:00 2019-04-02 10:53:[address] [facility] [id number] [facility] 2019-03-21 13:20:00 2019-03-21 13:20:[address] [facility] [id number] [facility] 2018-12-19 13:15:00 2018-12-19 13:15:[address] [facility] [facility] [id number] [facility] 2018-09-20 15:30:00 2018-09-20 15:30:00 Outpatient [facility] [id number] [facility] 2018-06-15 13:15:00 2018-06-15 13:15:00 Outpatient [facility] [id number] [facility] 2018-03-15 16:00:00 2018-03-15 16:00:00 Outpatient [facility] [id number] [facility]
[2024-12-10 14:16] LABS: Influenza A Ag Negative; Influenza B Ag Negative; SARS-CoV-2 Antigen Rapid Res Negative (Negative)
--- NOTE | 2024-12-10 14:49 | RAD REPORT ---
EXAMINATION: TWO VIEW CHEST XR CLINICAL INDICATION: Cough;Congestion TECHNIQUE: 2 views of the chest was performed. COMPARISON: 05/19/2024 FINDINGS: Mild bibasilar lung opacities are present suggesting mild infiltrate/pneumonia. The heart is upper li roberto of normal in size. No displaced fractures evident.
[2024-12-10] MEDS ORDERED: IPRATROPIUM BROM 0.5MG/2.5ML ONE (16:59)
[2024-12-10] MEDS ORDERED: ALBUTEROL 2.5 MG/3 ML NEB SOL ONE (16:59)
[2024-12-10] MEDS ORDERED: METHYLPREDNISOLONE 125 MG INJ ONE (16:59)
[2024-12-10 17:00] LABS: Absolute Eosinophils 0.3 K/uL (0-0.5); Absolute Lymphocytes (CBC) 1.7 K/uL (0.7-4.9); Absolute Monocytes 0.6 K/uL (0.1-1.3); Absolute Neutrophil 8.6 K/uL (1.8-8.0); Basophils % 0.2 % (0-1.3); Eosinophils % 3.1 % (0-4.4); Hematocrit 41.7 % (36.0-45.0); Hemoglobin 13.8 g/dL (12.0-15.0); Lymphocytes % 15.3 % (15.3-44.8); MCH 29.1 pg (27.0-35.0); MCHC 33.2 g/dL (32.0-36.0); MCV 87.7 fL (80-100); MPV 9.2 fL (7.6-11.3); Monocytes % 5.5 % (3.3-12.3); Neutrophils % 75.9 % (41.7-73.7); Nucleated Red Blood Cells % 0.1 % (0-0); Platelets 186 thou/uL (152-406); RBC Red Blood Cell Count 4.75 M/uL (3.86-4.86); Red Cell Distribution Width 14.8 % (12.1-15.2)
[2024-12-10 17:10] LABS: PT Prothrombin Time 11.7 SECONDS (10-13.0); PTT, Activated Partial Thromb 31.8 SECONDS (27.2-37.4); Protime INR 1.03
[2024-12-10 17:17] LABS: Albumin 3.5 g/dL (3.4-5.0); Albumin/Globulin Ratio 0.8 (1.1-1.8); Anion Gap 5.4 mEq/L (5.0-15.0); Bilirubin Total 0.7 mg/dL (0.2-1.0); Globulin 4.4 g/dL (2.3-3.5); Potassium 3.4 mEq/L (3.5-5.1); Protein, Total 7.9 g/dL (6.4-8.2)
--- NOTE | 2024-12-10 18:17 | EDPHYS ---
Physician Documentation [facility] Name: Kita Sunshine Age: 29 yrs Sex: Female : 1995 Arrival Date: 12/10/2024 Time: 13:16 Bed DIS7 Private MD: ED Physician Shaheed Rivero HPI: 12/10 14:16 This 29 yrs old Female presents to ER via Ambulatory with complaints of Flu kb Symptoms. 14:16 Pt is a 29 year old female who presents for cough, congestion and runny nose that kb started 3 days ago. Mother denies fever. States cough is worse at night and is keeping her up. Denies any pulmonary history. . Historical: - Allergies: 13:41 No Known Allergies; ap3 - PMHx: 13:41 Hyperlipidemia; Intellectually disabled; ap3 - PSHx: 13:41 Cholecystectomy; ap3 - Immunization history:: Client reports having NOT received the Covid vaccine. - Infectious Disease History:: Denies. - Social history:: Smoking status: unknown. ROS: 14:16 Constitutional: As per HPI kb Exam: 14:16 Constitutional: This is a well developed, well nourished patient who is awake, alert, kb and in no acute distress. Head/Face: Normocephalic, atraumatic. ENT: Moist Mucous membranes Cardiovascular: Regular rate Skin: Warm, dry with normal turgor. Normal color. MS/ Extremity: Pulses equal, no cyanosis. Neurovascular intact. Full, normal range of motion. Neuro: Awake and alert, GCS 15, oriented to person, place, time, and situation. 14:16 Respiratory: the patient does not display signs of respiratory distress, Respirations: normal, Breath sounds: decreased breath sounds, that are mild, are located in both bases, wheezing: expiratory that is mild, 16:35 ECG was reviewed by the Attending Physician. kb Vital Signs: 13:36 Pulse Ox 86% on R/A; ap3 13:39 BP 101 / 67; Pulse 94; Resp 21; Temp 97.5(O); Pulse Ox 92% ; ap3 16:45 BP 115 / 83; Pulse 92; Resp 20; Pulse Ox 100% on 2 lpm NC; jb4 17:43 BP 97 / 79; Pulse 99; Resp 20; Pulse Ox 93% on R/A; jb4 18:32 BP 98 / 68; Pulse 94; Resp 15; Pulse Ox 95% ; jb4 20:00 BP 94 / 63; Pulse 98; Resp 18; Temp 98.1(O); Pulse Ox 93% on R/A; jb4 MDM: 13:20 Medical Screening Exam initiated kb 14:18 Data reviewed: vital signs, nurses notes. kb 18:13 Differential diagnosis: flu, covid, pneumonia, bronchitis. Consideration of kb Admission/Observation Patient was admitted/placed on observation. Escalation of care including admission/observation considered. Management of patient was discussed with the following: Hospitalist: Dr Zeng accepts pt for admission. Historians other than the Patient: Parent: mother. Counseling: I had a detailed discussion with the patient and/or guardian regarding the historical points, exam findings, and any diagnostic results supporting the discharge/admit diagnosis, lab results, radiology results, the need for further work-up and treatment in the hospital. 12/10 13:44 Order name: COVID-19 Ag + Flu A+B Ag; Complete Time: 14:18 kb 12/10 14:50 Order name: Blood Culture Adult (2) 12/10 14:50 Order name: CBC with Diff; Complete Time: 17:06 kb 12/10 14:50 Order name: CMP 12/10 14:50 Order name: Lactate w/ 2H reflex if indic.; Complete Time: 17:30 kb 12/10 14:50 Order name: Protime (+inr); Complete Time: 17:11 kb 12/10 14:50 Order name: Ptt, Activated; Complete Time: 17:11 12/10 18:55 Order name: Thyroid Stimulating Hormone [facility] 12/10 18:55 Order name: Urinalysis w/ reflexes [facility] 12/10 18:55 Order name: CBC with Automated Diff [facility] 12/10 18:55 Order name: CBC with Automated Diff [facility] 12/10 18:55 Order name: Comprehensive Metabolic Panel [facility] 12/10 18:55 Order name: Comprehensive Metabolic Panel [facility] 12/10 18:55 Order name: Lipid Profile [facility] 12/10 18:55 Order name: Lipid Profile [facility] 12/10 13:44 Order name: Chest Pa And Lat (2 Views) XRAY; Complete Time: 14:50 kb 12/10 18:48 Order name: Chest For Pe Angio; Complete Time: 19:21 EDMS 12/10 14:50 Order name: Cardiac monitoring; Complete Time: 17:11 kb 12/10 14:50 Order name: EKG - Nurse/Tech; Complete Time: 17:11 kb 12/10 14:50 Order name: IV Saline Lock - Large Bore; Complete Time: 17:11 kb 12/10 14:50 Order name: Labs collected and sent; Complete Time: 17:11 kb 12/10 14:50 Order name: O2 Per Protocol; Complete Time: 15:41 kb 12/10 14:50 Order name: O2 Sat Monitoring; Complete Time: 15:41 kb 12/10 14:50 Order name: Vital Signs; Complete Time: 17:12 kb EC:35 Rate is 91 beats/min. Rhythm is regular. QRS [place] is Normal. [place] interval is normal at kb 188 msec. QRS interval is normal at 114 msec. QT interval is normal at 489 msec. Administered Medications: 17:11 Drug: MethylPrednisoLONE IVP 125 mg IVP once Route: IVP; Site: left antecubital; jb4 18:16 Follow up: Response: No adverse reaction; Marked relief of symptoms jb4 17:12 Drug: Albuterol Inhalation 2.5 mg Inhalation once Route: Inhalation; jb4 18:16 Follow up: Response: No adverse reaction; Marked relief of symptoms jb4 17:12 Drug: Ipratropium Inhalation Aerosol 0.5 mg Inhalation once Route: Inhalation; jb4 18:16 Follow up: Response: No adverse reaction; Marked relief of symptoms jb4 18:31 Drug: Rocephin IV 1 grams IV at calculated rate once; Given slow IV push per pharmacy jb4 instructions Route: IV; Rate: calculated rate; Site: left antecubital; 18:33 Follow up: Response: No adverse reaction; IV Status: Completed infusion; IV Intake: [id number] 18:33 Drug: Zithromax IVPB 500 mg IVPB once over 1 hrs; mix in 250 mL NS Route: IVPB; Infused jb4 Over: 1 hrs; Site: left antecubital; 19:33 Follow up: Response: No adverse reaction; IV Status: Completed infusion; IV Intake: jb4 250ml 18:33 Drug: Tessalon Perle PO 100 mg PO once Route: PO; jb4 20:00 Follow up: Response: No adverse reaction; Marked relief of symptoms jb4 Disposition Summary: 12/10/24 18:16 Hospitalization Ordered Notes: Hospitalization Status: Observation kb Provider: Jack Zeng Location: Telemetry/MedSurg (observation)(12/10/24 18:16) kb Condition: Stable(12/10/24 18:16) kb Problem: new kb Symptoms: are unchanged kb Bed/Room Type: Standard kb Room Assignment: 216(12/10/24 18:57) rv1 Diagnosis - Hypoxia kb - Pneumonia, unspecified organism(12/10/24 18:16) kb Forms: - Medication Reconciliation Form kb - SBAR form kb - Leadership Thank You Letter kb Signatures: Dispatcher [employer] EDMS Sonya Crowley, HOGSHEAD STOCK CLERK-C HOGSHEAD STOCK CLERK-Jimmy Maldonado, RN RN jb4 Jessie Key RN RN ap3 Elaina Clifford rv1 Corrections: (The following items were deleted from the chart) 13:44 13:44 COVID-19 Ag + Flu A+B Ag+I.LAB.BRZ ordered. EDMS EDMS 13:44 13:44 Chest Pa And Lat (2 Views)+RAD.RAD.BRZ ordered. EDMS EDMS 14:51 14:51 BLOOD CULTURE*+BA.LAB.BRZ ordered. EDMS EDMS 14:51 14:51 CBC+H.LAB.BRZ ordered. EDMS EDMS 14:51 14:51 COMPREHENSIVE METABOLIC PANEL+C.LAB.BRZ ordered. EDMS EDMS 14:51 14:51 LACTATE+C.LAB.BRZ ordered. EDMS EDMS 14:51 14:51 PROTIME (+INR)+COAG.LAB.BRZ ordered. EDMS EDMS 14:51 14:51 PTT, ACTIVATED+COAG.LAB.BRZ ordered. EDMS EDMS 18:16 18:15 Home kb kb 18:16 18:15 Stable kb kb 18:16 18:15 Pneumonia, unspecified organism kb kb 18:16 18:15 Hypoxia kb kb 18:57 18:16 kb rv1
--- NOTE | 2024-12-10 18:17 | ER ---
Nurse's Notes [facility] Name: Kita Sunshine Age: 29 yrs Sex: Female : 1995 Arrival Date: 12/10/2024 Time: 13:16 Bed DIS7 Private MD: Diagnosis: Hypoxia;Pneumonia, unspecified organism Presentation: 12/10 13:39 Chief complaint: Patient states: she has been having cough, congestion and runny nose ap3 for three days. Coronavirus screen: Client presents with at least one sign or symptom that may indicate coronavirus-19. Ebola Screen: No symptoms or risks identified at this time. Initial Sepsis Screen: Does the patient meet any 2 criteria? HR > 90 bpm. Does the patient have a suspected source of infection? No. Patient's initial sepsis screen is negative. Risk Assessment: Do you want to hurt yourself or someone else? Patient reports no desire to harm self or others. Onset of symptoms was December 08, 2024. 13:39 Method Of Arrival: Ambulatory ap3 13:39 Acuity: KAREN 2 ap3 Triage Assessment: 13:42 General: Appears ill, Behavior is cooperative. Pain: Denies pain. Neuro: Level of ap3 Consciousness is awake, alert, obeys commands, Oriented to person, place, time, Appropriate for age. Cardiovascular: Patient's skin is warm and dry. Respiratory: Reports shortness of breath cough that is Airway is patent Respiratory effort is even, unlabored, Respiratory pattern is regular, symmetrical, tachypnea. Historical: - Allergies: 13:41 No Known Allergies; ap3 - PMHx: 13:41 Hyperlipidemia; Intellectually disabled; ap3 - PSHx: 13:41 Cholecystectomy; ap3 - Immunization history:: Client reports having NOT received the Covid vaccine. - Infectious Disease History:: Denies. - Social history:: Smoking status: unknown. Screenin:43 Abuse screen: Denies threats or abuse. Nutritional screening: No deficits noted. ap3 Tuberculosis screening: No symptoms or risk factors identified. 16:45 [facility] ED Fall Risk Assessment (Adult) History of falling in the last 3 months, jb4 including since admission No falls in past 3 months (0 pts) Confusion or Disorientation No (0 pts) Intoxicated or Sedated No (0 pts) Impaired Gait No (0 pts) Mobility Assist Device Used No (0 pt) Altered Elimination No (0 pt) Score/Fall Risk Level 0 - 2 = Low Risk Oriented to surroundings, Maintained a safe environment. Assessment: 15:45 General: Appears in no apparent distress. uncomfortable, ill, obese, Behavior is jb4 cooperative, anxious. Pain: Denies pain. Neuro: Level of Consciousness is awake, alert, obeys commands, Oriented to person, place, time, situation. Cardiovascular: Patient's skin is warm and dry. Respiratory: Airway is patent Respiratory effort is even, labored, Respiratory pattern is regular, symmetrical. Derm: Skin is intact, Skin is pink, warm \T\ dry. Musculoskeletal: Circulation, motion, and sensation intact. Range of motion: intact in all extremities. 17:00 Reassessment: Patient appears in no apparent distress at this time. Patient and/or jb4 family updated on plan of care and expected duration. Pain level reassessed. Patient is alert, oriented x 3, equal unlabored respirations, skin warm/dry/pink. 17:43 Reassessment: Patient appears in no apparent distress at this time. Patient and/or jb4 family updated on plan of care and expected duration. Pain level reassessed. Patient is alert, oriented x 3, equal unlabored respirations, skin warm/dry/pink. Patient states feeling better. 18:32 Reassessment: Patient appears in no apparent distress at this time. Patient and/or jb4 family updated on plan of care and expected duration. Pain level reassessed. Patient is alert, oriented x 3, equal unlabored respirations, skin warm/dry/pink. Patient states feeling better. 20:00 Reassessment: Patient appears in no apparent distress at this time. Patient and/or jb4 family updated on plan of care and expected duration. Pain level reassessed. Patient is alert, oriented x 3, equal unlabored respirations, skin warm/dry/pink. Vital Signs: 13:36 Pulse Ox 86% on R/A; ap3 13:39 BP 101 / 67; Pulse 94; Resp 21; Temp 97.5(O); Pulse Ox 92% ; ap3 16:45 BP 115 / 83; Pulse 92; Resp 20; Pulse Ox 100% on 2 lpm NC; jb4 17:43 BP 97 / 79; Pulse 99; Resp 20; Pulse Ox 93% on R/A; jb4 18:32 BP 98 / 68; Pulse 94; Resp 15; Pulse Ox 95% ; jb4 20:00 BP 94 / 63; Pulse 98; Resp 18; Temp 98.1(O); Pulse Ox 93% on R/A; jb4 ED Course: 13:19 Patient arrived in ED. im 13:19 Sonya Crowley FNP-C is [facility]. kb 13:20 Shaheed Rivero MD is Attending Physician. kb 13:41 Triage completed. ap3 13:43 Arm band placed on left wrist. ap3 13:57 COVID-19 Ag + Flu A+B Ag Sent. bc6 14:45 Chest Pa And Lat (2 Views) XRAY In Process Unspecified. EDMS 17:33 Jimmy Beatty, DIPAK is Primary Nurse. jb4 18:16 Jack Zeng MD is Hospitalizing Provider. kb 20:00 No provider procedures requiring assistance completed. Patient admitted, IV remains in jb4 place. Administered Medications: 17:11 Drug: MethylPrednisoLONE IVP 125 mg IVP once Route: IVP; Site: left antecubital; jb4 18:16 Follow up: Response: No adverse reaction; Marked relief of symptoms jb4 17:12 Drug: Albuterol Inhalation 2.5 mg Inhalation once Route: Inhalation; jb4 18:16 Follow up: Response: No adverse reaction; Marked relief of symptoms jb4 17:12 Drug: Ipratropium Inhalation Aerosol 0.5 mg Inhalation once Route: Inhalation; jb4 18:16 Follow up: Response: No adverse reaction; Marked relief of symptoms jb4 18:31 Drug: Rocephin IV 1 grams IV at calculated rate once; Given slow IV push per pharmacy jb4 instructions Route: IV; Rate: calculated rate; Site: left antecubital; 18:33 Follow up: Response: No adverse reaction; IV Status: Completed infusion; IV Intake: [id number] 18:33 Drug: Zithromax IVPB 500 mg IVPB once over 1 hrs; mix in 250 mL NS Route: IVPB; Infused jb4 Over: 1 hrs; Site: left antecubital; 19:33 Follow up: Response: No adverse reaction; IV Status: Completed infusion; IV Intake: jb4 250ml 18:33 Drug: Tessalon Perle PO 100 mg PO once Route: PO; jb4 20:00 Follow up: Response: No adverse reaction; Marked relief of symptoms jb4 Medication: 20:00 VIS not applicable for this client. jb4 Intake: 18:33 IV: 10ml; Total: 10ml. jb4 19:33 IV: 250ml; Total: 260ml. jb4 Outcome: 18:15 Discharge ordered by . keven 18:16 Decision to Hospitalize by Provider. kb 20:00 Admitted to Med/surg accompanied by nurse, via wheelchair, room 216, with chart, jb4 20:00 Condition: stable 20:00 Discharge instructions given to patient, family, Instructed on the need for admit, Demonstrated understanding of instructions, 20:55 Patient left the ED. jb4 Signatures: Dispatcher [employer] EDMS Sonya Crowley, KNOWLEDGE ARCHITECT-C KNOWLEDGE ARCHITECT-Jimmy Maldonado, RN RN jb4 Jessie Key RN RN ap3 Azul Ramirez6 Caty Herndon
[2024-12-10] MEDS ORDERED: BENZONATATE 100 MG CAP PO ONE (18:21)
[2024-12-10] MEDS ORDERED: NA CHLORIDE 0.9% 250 ML ONE (18:21)
[2024-12-10] MEDS ORDERED: CEFTRIAXONE 1000 MG/VIAL ONE (18:21)
[2024-12-10] MEDS ORDERED: AZITHROMYCIN 500 MG INJ IVPB ONE (18:21)
--- NOTE | 2024-12-10 18:45 | P.HP ---
Certification for Inpatient Patient admitted to: Inpatient With expected LOS: >2 Midnights Practitioner: I am a practitioner with admitting privileges, knowledge of patient current condition, hospital course, and medical plan of care. Services: Services provided to patient in accordance with Admission requirements found in Title 42 Section 412.3 of the Code of Federal Regulations Patient History Date of Service: 12/10/24 Reason for admission: SOB History of Present Illness: 29 year old female with past medical history of hyperlipidemia, intellectual disability came to ER with upper respiratory symptoms associated with cough, congestion and runny nose which started 3 days ago and has been progressively worsening today and was brought to ER. Has subjective fever. Cough is productive with mucoid expectoration. Denies any sick contacts. No recent travel Patient was assessed in the ER and was admitted for possible multifocal pneumonia Allergies No Known Drug Allergies Allergy (Verified 05/20/24 20:03) Unknown Home medications list reviewed: Yes Home Medications: Rosuvastatin Calcium 1 tab PO BEDTIME 05/20/24 Azithromycin [Zithromax] 500 mg PO DAILY #5 tab 05/21/24 Benzonatate [Tessalon Perle*] 200 mg PO TID PRN #30 cap 05/21/24 Guaifenesin/Dextromethorphan [Robitussin Cough-Chest Dm Liq] 10 ml PO TID PRN #237 ml 05/21/24 Zinc Sulfate [Zinc Sulfate*] 220 mg PO DAILY #30 cap 05/21/24 cefuroxime axetiL [Cefuroxime] 500 mg PO BID #10 tab 05/21/24 - Past Medical/Surgical History Diabetic: No Past Medical History: Reviewed- Non-Contributory -: Intellectually disabled -: hypercholerstermia Past Surgical History: Reviewed- Non-Contributory -: Cholecystectomy - Social History Smoking Status: Never smoker Alcohol use: No CD- Drugs: No Review of Systems 10-point ROS is otherwise unremarkable Physical Examination - Vital Signs Temperature: 97.5 F Blood Pressure: 101/67 Pulse: 92 Respirations: 20 Pulse Ox (%): 94 - Physical Exam General: Alert, Oriented x2, Mild distress HEENT: Atraumatic, Normocephalic Neck: Supple, No Thyromegaly Respiratory: Diminished, Crackles/rales Cardiovascular: Regular rate/rhythm, Normal S1 S2 Capillary refill: <2 Seconds Gastrointestinal: Soft and benign, W/out hepatosplenomegaly Musculoskeletal: No clubbing, No swelling Integumentary: No breakdown Neurological: Normal strength at 5/5 x4 extr, Cranial nerves 3-12 intact Lymphatics: No axilla or inguinal lymphadenopathy - Studies Laboratory Data (last 24 hrs) 12/10/24 12/10/24 12/10/24 16:50 16:50 16:50 WBC 11.30 H Hgb 13.8 Hct 41.7 Plt Count 186 PT 11.7 INR 1.03 APTT 31.8 Sodium 142 Potassium 3.4 L BUN 9 Creatinine 0.68 Glucose 108 H Total Bilirubin 0.7 AST 84 H ALT 166 H Alkaline Phosphatase 231 H Assessment and Plan - Plan Multifocal pneumonia Started on IV antibiotic Monitor closely on telemetry Supportive management Acute hypoxic respiratory failure Oxygen supplementation Will try to wean down oxygen requirement CT chest to rule out PE Hypokalemia Will replace potassium Elevated LFTs Will trend LFTs in a.m. Intellectual disability Supportive management GI/DVT prophylaxis Advanced directive. Full code Discharge Plan: Home Plan to discharge in: 48 Hours - Advance Directives Does patient have a Living Will: No Does patient have a Durable POA for Healthcare: No - Code Status/Comfort Care Code Status: Full Code Time Spent Managing Pts Care (In Minutes): 53
[2024-12-10] MEDS ORDERED: ONDANSETRON 4 MG/2 ML VIAL IV PRN (18:47)
[2024-12-10] MEDS ORDERED: ACETAMINOPHEN 325 MG TABLET PO PRN (18:47)
[2024-12-10] MEDS ORDERED: ALBUTEROL 2.5 MG/3 ML NEB SOL NEB PRN (18:47)
[2024-12-10] MEDS ORDERED: IPRATROPIUM BROM 0.5MG/2.5ML NEB PRN (18:47)
--- NOTE | 2024-12-10 19:20 | RAD REPORT ---
EXAMINATION: CTA CHEST PE CLINICAL INDICATION: SOB TECHNIQUE: This examination was performed according to an angiographic protocol with 3D post-processi ng. This involves 3D reconstructions, MIPs, volume rendered images and/or shaded surface rendering. One or more of the following dose reduction techniques were used: Automated exposure control, adjustm ent of the mA and/or kV according to patient size, and/or iterative reconstruction. Unless otherwise specified, incidental findings do not require dedicated imaging follow-up. COMPARISON: 05/19/2024 FINDINGS: PULMONARY ARTERIES: Normal caliber. No evidence of pulmonary emboli to the subsegmental level. THORACIC AORTA: Normal caliber and configuration. LUNGS: Opacities in both lung bases may represent atelectasis or infiltrate. Mild indeterminate groun dglass opacity bilaterally. Patchy nodular opacity seen superior segment right lower lobe measuring 10 mm, less prominent than on prior study. PLEURA: No pleural effusion. No pneumothorax. MEDIASTINUM AND LYMPH NODES: No mediastinal mass or fluid collection. Normal size mediastinal, hilar, and axillary lymph nodes. OSSEOUS STRUCTURES AND CHEST WALL: Intact. UPPER ABDOMEN: No significant abnormalities. IMPRESSION: No evidence of pulmonary emboli to the subsegmental level.
[2024-12-10 21:57] VITALS: BMI 32.5
[2024-12-10] MEDS: GUAIFENESIN/DM 5 ML UCUP PO PRN (23:15)
[2024-12-11 00:08] LABS: Thyroid Stimulating Hormone 1.18 uIU/mL (0.358-3.740)
[2024-12-11] MEDS: CEFTRIAXONE 1,000 MG in NA CHLORIDE 0.9% 50 ML IVPB SCH (08:16)
[2024-12-11] MEDS: ENOXAPARIN 40 MG/0.4 ML SQ SCH (08:17)
[2024-12-11] MEDS: AZITHROMYCIN IV 500 MG in NA CHLORIDE 0.9% 250 ML IVPB SCH (08:17)
[2024-12-11 08:59] VITALS: O2SAT 92
[2024-12-11 09:16] LABS: Absolute Lymphocytes (CBC) 1.1 K/uL (0.7-4.9); Absolute Monocytes 0.1 K/uL (0.1-1.3); Absolute Neutrophil 8.8 K/uL (1.8-8.0); Basophils % 0.3 % (0-1.3); Eosinophils % 0.2 % (0-4.4); Hematocrit 39.2 % (36.0-45.0); Hemoglobin 13.2 g/dL (12.0-15.0); Lymphocytes % 11.1 % (15.3-44.8); MCH 29.4 pg (27.0-35.0); MCHC 33.6 g/dL (32.0-36.0); MCV 87.5 fL (80-100); MPV 9.8 fL (7.6-11.3); Neutrophils % 87.4 % (41.7-73.7); Nucleated Red Blood Cells % 0.2 % (0-0); Platelets 156 thou/uL (152-406); RBC Red Blood Cell Count 4.48 M/uL (3.86-4.86); Red Cell Distribution Width 15.1 % (12.1-15.2)
[2024-12-11 09:42] LABS: Albumin 3.3 g/dL (3.4-5.0); Albumin/Globulin Ratio 0.8 (1.1-1.8); Anion Gap 10.7 mEq/L (5.0-15.0); Bilirubin Total 0.5 mg/dL (0.2-1.0); Globulin 4.2 g/dL (2.3-3.5); Protein, Total 7.5 g/dL (6.4-8.2)
[2024-12-11 09:43] LABS: Potassium 3.7 mEq/L (3.5-5.1)
[2024-12-11 12:21] VITALS: BP 103/57; TEMP 97.6
--- NOTE | 2024-12-11 13:57 | P.DS ---
Admission Date: 12/10/24 Discharge Date: 12/11/24 Disposition: ROUTINE DISCHARGE Discharge Condition: GOOD Reason for Admission: SOB Brief History of Present Illness: 29 year old female with past medical history of hyperlipidemia, intellectual disability came to ER with upper respiratory symptoms associated with cough, congestion and runny nose which started 3 days ago and has been progressively worsening today and was brought to ER. Has subjective fever. Cough is productive with mucoid expectoration. Denies any sick contacts. No recent travel Patient was assessed in the ER and was admitted for possible multifocal pneumonia Hospital Course: Multifocal pneumonia Acute hypoxic respiratory failure Hypokalemia Elevated LFTs Intellectual disability Patient was admitted to the hospital for community-acquired pneumonia. She had been having cough, congestion and runny nose that started about 3 days ago with subjective fever and productive cough. She is negative for COVID, influenza CTA of the chest was performed which was negative for pulmonary embolism but showed opacities in both lung bases which may represent atelectasis or infiltrate. Patient was monitored in the hospital, did not require any supplemental oxygen throughout the day today and is feeling much better. She is stable for discharge outpatient follow-up. Prescriptions for antibiotics Zithromax/Augmentin sent to her pharmacy [facility] as well as cough medication as needed and inhaler. Please follow-up with your primary care doctor in 1 to 2 weeks Vital Signs/Physical Exam: Temp Pulse Resp BP Pulse Ox 97.6 F 106 H 12 103/57 L 90 L 12/11/24 12:00 12/11/24 12:00 12/11/24 12:00 12/11/24 12:00 12/11/24 12:00 General: Alert, In no apparent distress, Oriented x3 HEENT: Atraumatic, PERRLA Neck: Supple, JVD not distended Respiratory: Clear to auscultation bilaterally, Normal air movement Cardiovascular: Regular rate/rhythm, Normal S1 S2 Gastrointestinal: Normal bowel sounds, No tenderness Musculoskeletal: No tenderness Integumentary: No rashes Neurological: Normal speech Laboratory Data at Discharge: WBC 10.10 thou/uL (4.3-10.9) 12/11/24 08:59 Hgb 13.2 g/dL (12.0-15.0) 12/11/24 08:59 Hct 39.2 % (36.0-45.0) 12/11/24 08:59 Plt Count 156 thou/uL (152-406) 12/11/24 08:59 PT 11.7 SECONDS (10-13.0) 12/10/24 16:50 INR 1.03 12/10/24 16:50 APTT 31.8 SECONDS (27.2-37.4) 12/10/24 16:50 Sodium 143 mEq/L (136-145) 12/11/24 08:59 Potassium 3.7 mEq/L (3.5-5.1) 12/11/24 08:59 BUN 10 mg/dL (7-18) 12/11/24 08:59 Creatinine 0.84 mg/dL (0.55-1.02) 12/11/24 08:59 Glucose 237 mg/dL (74-106) H 12/11/24 08:59 Total Bilirubin 0.5 mg/dL (0.2-1.0) 12/11/24 08:59 AST 94 U/L (15-37) H 12/11/24 08:59 ALT 199 U/L (13-56) H 12/11/24 08:59 Alkaline Phosphatase 231 U/L (45-117) H 12/11/24 08:59 Triglycerides 212 mg/dL (<150) H 12/11/24 08:59 Cholesterol 194 mg/dL (<200) 12/11/24 08:59 HDL Cholesterol 48 mg/dL (40-60) 12/11/24 08:59 Cholesterol/HDL Ratio 4.04 12/11/24 08:59 Home Medications: Albuterol Inhaler [Ventolin Inhaler*] 2 puff IH Q6H PRN #1 inh 12/11/24 Amox/Clavulanate [Augmentin 875-125 Tab] 875 mg PO BID 7 Days #14 tab 12/11/24 Azithromycin [Zithromax] 500 mg PO DAILY #5 tab 12/11/24 Benzonatate [Tessalon Perle*] 200 mg PO TID PRN #30 cap 12/11/24 New Medications: Amox/Clavulanate [Augmentin 875-125 Tab] 875 mg PO BID 7 Days #14 tab Benzonatate [Tessalon Perle*] 200 mg PO TID PRN #30 cap PRN Reason: Cough Albuterol Inhaler [Ventolin Inhaler*] 2 puff IH Q6H PRN #1 inh PRN Reason: Shortness Of Breath Azithromycin [Zithromax] 500 mg PO DAILY #5 tab Physician Discharge Instructions: Patient was admitted to the hospital for community-acquired pneumonia. She had been having cough, congestion and runny nose that started about 3 days ago with subjective fever and productive cough. She is negative for COVID, influenza CTA of the chest was performed which was negative for pulmonary embolism but showed opacities in both lung bases which may represent atelectasis or infiltrate. Patient was monitored in the hospital, did not require any supplemental oxygen throughout the day today and is feeling much better. She is stable for discharge outpatient follow-up. Prescriptions for antibiotics [facility] as well as cough medication as needed and inhaler. Please follow-up with your primary care doctor in 1 to 2 weeks Diet: Regular Activity: Ad marcus Followup: Pawan Marquez MD [ACTIVE - CAN ADMIT] - 1 Week NONE,NONE [Primary Care Provider] - Time spent managing pt's care (in minutes): 45
--- NOTE | 2024-12-13 14:51 | EKG ---
Test Date: 2024-12-10 Test Time: 16:32:56 Collections Agent: BOB MEASUREMENT RESULTS: Intervals: Rate: 91 MT: 188 QRSD: 114 QT: 398 QTc: 489 [place]: P: 82 MT: 188 QRS: -68 T: 58 INTERPRETIVE STATEMENTS: Normal sinus rhythm Pulmonary disease pattern Left anterior fascicular block Abnormal ECG Compared to ECG 05/19/2024 20:47:10 T-wave abnormality no longer present Prolonged QT interval no longer present Electronically Signed On 12-13-24 14:43:33 CDT by Jayesh Walker
== END 2024-12-11 14:57 | disposition home or self-care (01) | DRG 193 ==
LOC: ER 13:16 → ERHOLD 18:47 → 2ND 19:26
PROVIDERS: ADMIT Family Medicine; ATTEND Hospitalist
DX: J18.9 Pneumonia, unspecified organism (principal); J96.01 Acute respiratory failure with hypoxia; E78.5 Hyperlipidemia, unspecified; F79 Unspecified intellectual disabilities; E87.6 Hypokalemia; R79.89 Other specified abnormal findings of blood chemistry; Z11.52 Encounter for screening for COVID-19; Z90.49 Acquired absence of other specified parts of digestive tract; Z28.310 Unvaccinated for COVID-19; Z79.899 Other long term (current) drug therapy
CPT/HCPCS: 36415; 71046; 71275; 80053; 80061; 83605; 84443; 85025; 85610; 85730; 87040; 87428; 93005; 94760; 96365; 96375; 99285; J0696; J1650; J2919; J7050; J7613; J7644; Q9967

== ENCOUNTER 2025-02-13 12:23 | Observation (INO) | payer OTHER ==
--- OUTSIDE RECORDS SUMMARY | 2025-02-13 12:26 | XMS REPORT | Continuity of Care Document ---
Author Name Unknown Address [address] [facility] [address] [place] [address] [facility] Address [address] [facility] [address] [place] [address] Care Team Providers Care Cleaner Laboratory Equipment Name Role Phone Claudia Panchal Attending Clinician Unavailable Amelia Gibbons Attending Clinician Unavailable Payers Payer Name Policy Type Policy Number Effective Date Expirati on Date Source [employer] (Medicaid) [id number] 2017 00:00:00 [facility] Problems Condition Name Condition Details Condition Category Status Onset Date Resolution Date Last Treatment Date Treating Clinician Comments Source [id number] Obesity (BMI 30.0-34.9) Problem [facility] [id number] Vitamin D deficiency Problem [facility] [id number] Hypersomni a Problem [facility] [id number] Intellectu al disability Problem [facility] [id number] Hyperlipid emia, unspecifie d hyperlipid emia type Problem [facility] [id number] Difficulty sleeping Problem [facility] [id number] Snoring Problem [facility] [id number] Abdominal pain, unspecifie d abdominal location Problem [facility] Social History Social Habit Start Date Stop Date Quantity Comments Source History of Tobacco Use [facility] Sex Assigned At [facility] Smoking Status Start Date Stop Date Source Never Smoker [facility] Medications Ordered Medication Name Filled Medication [...] - single dose syringe 2019-07-04 14:03:00 Completed [facility] Flucelvax - single dose syringe Flucelvax - single dose syringe 2019-07-04 14:03:00 Completed [facility] Flucelvax - single dose syringe Flucelvax - single dose syringe 2019-07-04 14:03:00 Completed [facility] Flucelvax - single dose syringe Flucelvax - single dose syringe 2019-07-04 00:00:00 Completed [facility] Flucelvax - single dose syringe Flucelvax - single dose syringe Unknown Completed [facility] Flucelvax (ccIIV4) - SDS - 0.5mL Flucelvax (ccIIV4) - SDS - 0.5mL Unknown Completed [facility] Flucelvax (ccIIV4) - SDS - 0.5mL Flucelvax (ccIIV4) - SDS - 0.5mL Unknown Completed [facility] Vital Signs Vital Name Observation Time Observation Value Comments S ginny height 2024-04-02 13:00:00 59.25 [in_i] Com mon [facility] weight 2024-04-02 13:00:00 165.4 [lb_av] Co mmon [facility] temperature 2024-04-02 13:00:00 87.4 [degF] Com [facility] bmi 2024-04-02 13:00:00 33.12 kg/m2 Comm on [facility] oximetry 2024-04-02 13:00:00 94 % Commo n [facility] respiratory rate 2024-04-02 13:00:00 16 /min Common [facility] blood pressure systolic 2024-04-02 13:00:00 122 mm[Hg] [facility] blood pressure diastolic 2024-04-02 13:00:00 66 mm[Hg] [facility] height 2023-09-12 13:00:00 59.25 [in_i] Com [facility] weight 2023-09-12 13:00:00 169.4 [lb_av] Co mmon [facility] temperature 2023-09-12 13:00:00 98.0 [degF] Com [facility] bmi 2023-09-12 13:00:00 33.92 kg/m2 Comm on [facility] oximetry 2023-09-12 13:00:00 95 % Commo n [facility] respiratory rate 2023-09-12 13:00:00 15 /min [facility] blood pressure systolic 2023-09-12 13:00:00 82 mm[Hg] [facility] blood pressure diastolic 2023-09-12 13:00:00 53 mm[Hg] [facility] height 2023-09-12 13:00:00 59.25 [in_i] Com [facility] weight 2023-09-12 13:00:00 169.4 [lb_av] Co mmon [facility] temperature 2023-09-12 13:00:00 98.0 [degF] Com [facility] bmi 2023-09-12 13:00:00 33.92 kg/m2 Comm on [facility] oximetry 2023-09-12 13:00:00 95 % Commo n [facility] respiratory rate 2023-09-12 13:00:00 15 /min [facility] blood pressure systolic 2023-09-12 13:00:00 82 mm[Hg] [facility] blood pressure diastolic 2023-09-12 13:00:00 53 mm[Hg] [facility] height 2023-03-13 10:00:00 59.25 [in_i] Com [facility] weight 2023-03-13 10:00:00 171.6 [lb_av] Co [facility] temperature 2023-03-13 10:00:00 97.7 [degF] Com [facility] bmi 2023-03-13 10:00:00 34.36 kg/m2 Comm on [facility] oximetry 2023-03-13 10:00:00 95 % Commo n [facility] respiratory rate 2023-03-13 10:00:00 15 /min [facility] blood pressure systolic 2023-03-13 10:00:00 83 mm[Hg] Common [facility] blood pressure diastolic 2023-03-13 10:00:00 52 mm[Hg] [facility] height 2022-05-17 10:20:00 59.25 [in_i] Com [facility] weight 2022-05-17 10:20:00 176.2 [lb_av] Co [facility] temperature 2022-05-17 10:20:00 96.6 [degF] Com [facility] bmi 2022-05-17 10:20:00 35.28 kg/m2 Comm on [facility] oximetry 2022-05-17 10:20:00 93 % Commo n [facility] respiratory rate 2022-05-17 10:20:00 18 /min Common [facility] blood pressure systolic 2022-05-17 10:20:00 80 mm[Hg] [facility] blood pressure diastolic 2022-05-17 10:20:00 56 mm[Hg] [facility] height 2022-02-14 11:00:00 59.25 [in_i] Com [facility] weight 2022-02-14 11:00:00 179.6 [lb_av] Co mmon [facility] temperature 2022-02-14 11:00:00 98.1 [degF] Com [facility] bmi 2022-02-14 11:00:00 35.97 kg/m2 Comm on [facility] oximetry 2022-02-14 11:00:00 94 % Commo n [facility] respiratory rate 2022-02-14 11:00:00 18 /min [facility] blood pressure systolic 2022-02-14 11:00:00 96 mm[Hg] [facility] blood pressure diastolic 2022-02-14 11:00:00 53 mm[Hg] Common [facility] height 2021-11-16 08:40:00 59.25 [in_i] Com [facility] weight 2021-11-16 08:40:00 177 [lb_av] Comm on [facility] temperature 2021-11-16 08:40:00 97.8 [degF] Com [facility] bmi 2021-11-16 08:40:00 35.44 kg/m2 Comm on [facility] oximetry 2021-11-16 08:40:00 93 % Commo n [facility] respiratory rate 2021-11-16 08:40:00 18 /min [facility] blood pressure systolic 2021-11-16 08:40:00 97 mm[Hg] [facility] blood pressure diastolic 2021-11-16 08:40:00 60 mm[Hg] [facility] height 2021-08-16 11:00:00 59.25 [in_i] Com [facility] weight 2021-08-16 11:00:00 173 [lb_av] Comm on [facility] temperature 2021-08-16 11:00:00 98.1 [degF] Com mon [facility] bmi 2021-08-16 11:00:00 34.64 kg/m2 Comm on [facility] oximetry 2021-08-16 11:00:00 94 % Commo n [facility] respiratory rate 2021-08-16 11:00:00 16 /min [facility] blood pressure systolic 2021-08-16 11:00:00 105 mm[Hg] [facility] blood pressure diastolic 2021-08-16 11:00:00 70 mm[Hg] [facility] Encounters Start Date/Time End Date/Time Encounter Type Admission Type Attending Clinicians Care Facility Care Department Encounter ID Source 2024-11-06 14:46:[facility] [id number] [facility] 2024-11-05 10:31:00 [facility] [id number] [facility] 2024-10-03 14:16:[facility] [id number] [facility] 2024-03-29 10:56:00 [facility] [id number] [facility] 2023-09-12 12:49:00 [facility] [id number] [facility] 2023-09-08 11:29:00 Outpatient Claudia Panchal [facility] [id number] [facility] 2023-03-10 08:09:00 Outpatient Claudia Panchal [facility] [id number] [facility] 2022-12-09 11:41:01 Outpatient Claudia Panchal [facility] [id number] [facility] 2022-05-17 10:21:00 Outpatient Claudia Panchal [facility] [id number] [facility] 2022-05-13 08:42:00 Outpatient [facility] [id number] [facility] 2022-02-11 07:26:00 Outpatient [facility] [id number] [facility] 2021-11-12 07:49:00 Outpatient [facility] [id number] [facility] 2021-10-27 14:12:38 Outpatient [facility] [id number] [facility] 2021-10-27 11:57:42 Outpatient Amelia Gibbons [facility] [id number] [facility] 2021-10-27 11:33:42 Outpatient Levi Gibbonsen [facility] [id number] [facility] 2021-10-27 11:18:22 Outpatient Amelia Gibbons [facility] [id number] [facility] 2021-10-27 11:17:59 Outpatient Amelia Gibbons [facility] [id number] [facility] 2021-10-27 11:17:34 Outpatient Levi Gibbonsen [facility] [id number] [facility] 2021-10-27 11:00:55 Outpatient Amelia Gibbons [facility] [id number] [facility] 2024-10-03 00:00:00 2024-10-03 00:00:00 (TEL) [facility] [id number] [facility] 2024-04-02 00:00:00 2024-04-02 00:00:00 OFFICE VISIT ESTAB PT LEVEL 3 [facility] [id number] [facility] 2023-09-12 00:00:00 2023-09-12 00:00:00 OFFICE VISIT ESTAB PT LEVEL 3 [facility] [id number] [facility] 2023-03-13 00:00:00 2023-03-13 00:00:00 OFFICE VISIT ESTAB PT LEVEL 3 [facility] [id number] [facility] 2022-11-02 00:00:00 2022-11-02 00:00:00 (TEL) [facility] [id number] [facility] 2022-05-17 00:00:00 2022-05-17 00:00:00 OFFICE VISIT EST PT LEVEL 3 [facility] [id number] [facility] 2022-02-14 00:00:00 2022-02-14 00:00:00 OFFICE VISIT ESTAB PT LEVEL 4 [facility] [id number] [facility] 2021-11-16 00:00:00 2021-11-16 00:00:00 OFFICE VISIT ESTAB PT LEVEL 4 [facility] [id number] [facility] 2021-08-16 00:00:00 2021-08-16 00:00:00 OFFICE VISIT ESTAB PT LEVEL 4 [facility] [id number] [facility] 2020-07-27 00:00:00 2020-07-27 00:00:00 Outpatient [facility] [id number] [facility] 2020-04-26 12:45:00 2020-04-26 12:45:00 [facility] [id number] [facility] 2020-04-16 10:00:00 2020-04-16 10:00:[address] [facility] [id number] [facility] 2020-01-16 11:15:00 2020-01-16 11:15:[address] [facility] [id number] [facility] 2019-10-28 18:26:00 2019-10-28 18:26:[address] [facility] [id number] [facility] 2019-10-17 15:45:00 2019-10-17 15:45:[address] [facility] [facility] [id number] [facility] 2019-07-04 11:00:00 2019-07-04 11:00:00 [facility] [id number] [facility] 2019-05-02 14:09:00 2019-05-02 14:09:00 [facility] [id number] [facility] 2019-05-02 09:25:00 2019-05-02 09:25:00 [facility] [id number] [facility] 2019-04-29 13:31:00 2019-04-29 13:31:00 [facility] [id number] [facility] 2019-04-02 10:53:00 2019-04-02 10:53:00 [facility] [id number] [facility] 2019-03-21 13:20:00 2019-03-21 13:20:00 [facility] [id number] [facility] 2018-12-19 13:15:00 2018-12-19 13:15:00 [facility] [id number] [facility] 2018-09-20 15:30:00 2018-09-20 15:30:00 [facility] [id number] [facility] 2018-06-15 13:15:00 2018-06-15 13:15:00 Outpatient [facility] [id number] [facility] 2018-03-15 16:00:00 2018-03-15 16:00:00 Outpatient [facility] [id number] [facility]
[2025-02-13 14:27] LABS: Blood Gas Oxyhemoglobin 85.5 % (94-97); Blood O2 Saturation 88.1 % (92-98.5)
[2025-02-13 14:28] LABS: Arterial Blood Carboxyhemoglob 0.9 % (0-1.5); Blood Gas THB 14.5 g/dl (12-18)
[2025-02-13] MEDS ORDERED: NA CHLORIDE 0.9% 500 ML ONE (14:58)
[2025-02-13 15:12] LABS: Eosinophils % 4.1 % (0-4.4); Hematocrit 45.8 % (36.0-45.0); Hemoglobin 15.2 g/dL (12.0-15.0); Lymphocytes % 37.5 % (15.3-44.8); MCH 28.8 pg (27.0-35.0); MCHC 33.1 g/dL (32.0-36.0); MCV 87.2 fL (80-100); MPV 9.4 fL (7.6-11.3); Monocytes % 5.6 % (3.3-12.3); Neutrophils % 52.1 % (41.7-73.7); Platelets 170 thou/uL (152-406); RBC Red Blood Cell Count 5.26 M/uL (3.86-4.86); Red Cell Distribution Width 14.4 % (12.1-15.2)
[2025-02-13 15:13] LABS: Absolute Eosinophils 0.2 K/uL (0-0.5); Absolute Lymphocytes (CBC) 1.9 K/uL (0.7-4.9); Absolute Monocytes 0.3 K/uL (0.1-1.3); Absolute Neutrophil 2.7 K/uL (1.8-8.0); Basophils % 0.7 % (0-1.3); Nucleated Red Blood Cells % 0.1 % (0-0)
[2025-02-13 15:31] LABS: Albumin 3.6 g/dL (3.4-5.0); Albumin/Globulin Ratio 0.9 (1.1-1.8); Anion Gap 6.9 mEq/L (5.0-15.0); Bilirubin Total 0.4 mg/dL (0.2-1.0); Globulin 4.2 g/dL (2.3-3.5); Potassium 3.9 mEq/L (3.5-5.1); Protein, Total 7.8 g/dL (6.4-8.2)
--- NOTE | 2025-02-13 15:41 | EDPHYS ---
Physician Documentation [facility] Name: Kita Sunshine Age: 29 yrs Sex: Female : 1995 Arrival Date: 02/13/2025 Time: 12:23 Bed 14 Private MD: KIESHA Physician Mauri Yoon HPI: 02/13 15:29 This 29 yrs old Female presents to ER via Ambulatory with complaints of Feet victor hugo Swelling. 15:29 The patient presents with swelling. The complaints affect the right leg and left leg. victor hugo Context: The problem was sustained at home. Onset: The symptoms/episode began/occurred 2 day(s) ago. Modifying factors: The symptoms are alleviated by remaining still, the symptoms are aggravated by movement, weight bearing. Associated signs and symptoms: Pertinent positives: swelling. Treatment prior to arrival includes: no previous treatment. Severity of symptoms: At their worst the symptoms were moderate, in the emergency department the symptoms are unchanged. Historical: - Allergies: 13:37 No Known Allergies; cm10 - PMHx: 13:37 Hyperlipidemia; Intellectually disabled; cm10 - PSHx: 13:37 Cholecystectomy; cm10 - Immunization history:: Adult Immunizations unknown. - Infectious Disease History:: Denies. - Social history:: Smoking status: Patient denies any tobacco usage or history of. ROS: 15:30 Constitutional: Negative for fever, chills, and weight loss, Eyes: Negative for injury, victor hugo pain, redness, and discharge, ENT: Negative for injury, pain, and discharge, Neck: Negative for injury, pain, and swelling, Cardiovascular: Negative for chest pain, palpitations, and edema, Abdomen/GI: Negative for abdominal pain, nausea, vomiting, diarrhea, and constipation, Back: Negative for injury and pain, : Negative for injury, bleeding, discharge, and swelling, Skin: Negative for injury, rash, and discoloration, Neuro: Negative for headache, weakness, numbness, tingling, and seizure, Psych: Negative for depression, anxiety, suicide ideation, homicidal ideation, and hallucinations, Allergy/Immunology: Negative for hives, rash, and allergies, Endocrine: Negative for neck swelling, polydipsia, polyuria, polyphagia, and marked weight changes, Hematologic/Lymphatic: Negative for swollen nodes, abnormal bleeding, and unusual bruising, 15:30 Respiratory: Positive for shortness of breath, at rest. 15:30 MS/extremity: Positive for swelling, Exam: 15:30 Constitutional: This is a well developed, well nourished patient who is awake, alert, victor hugo and in no acute distress. Head/Face: Normocephalic, atraumatic. Eyes: Pupils equal round and reactive to light, extra-ocular motions intact. Lids and lashes normal. Conjunctiva and sclera are non-icteric and not injected. Cornea within normal limits. Periorbital areas with no swelling, redness, or edema. ENT: Nares patent. No nasal discharge, no septal abnormalities noted. Tympanic membranes are normal and external auditory canals are clear. Oropharynx with no redness, swelling, or masses, exudates, or evidence of obstruction, uvula midline. Mucous membranes moist. Neck: Trachea midline, no thyromegaly or masses palpated, and no cervical lymphadenopathy. Supple, full range of motion without nuchal rigidity, or vertebral point tenderness. No Meningismus. Chest/axilla: Normal chest wall appearance and motion. Nontender with no deformity. No lesions are appreciated. Cardiovascular: Regular rate and rhythm with a normal S1 and S2. No gallops, murmurs, or rubs. Normal PMI, no JVD. No pulse deficits. Respiratory: Lungs have equal breath sounds bilaterally, clear to auscultation and percussion. No rales, rhonchi or wheezes noted. No increased work of breathing, no retractions or nasal flaring. Abdomen/GI: Soft, non-tender, with normal bowel sounds. No distension or tympany. No guarding or rebound. No evidence of tenderness throughout. Back: No spinal tenderness. No costovertebral tenderness. Full range of motion. Skin: Warm, dry with normal turgor. Normal color with no rashes, no lesions, and no evidence of cellulitis. MS/ Extremity: Pulses equal, no cyanosis. Neurovascular intact. Full, normal range of motion., bilateral aka Neuro: Awake and alert, GCS 15, oriented to person, place, time, and situation. Cranial nerves II-XII grossly intact. Motor strength 5/5 in all extremities. Sensory grossly intact. Cerebellar exam normal. Normal gait. Psych: Awake, alert, with orientation to person, place and time. Behavior, mood, and affect are within normal limits. 15:30 Musculoskeletal/extremity: ROM: no acute changes, intact in all extremities, full active range of motion, full passive range of motion, Circulation is intact in all extremities. Sensation intact. Compartment Syndrome exam of affected extremity: is normal. Weight bearing: able to fully bear weight, Vital Signs: 13:37 BP 104 / 67; Pulse 75; Resp 16; Temp 97.7(O); Pulse Ox 90% on R/A; Weight 77.11 kg; cm10 Pain 2/10; 14:01 Pulse Ox 96% on R/A; db 15:00 BP 120 / 81; Pulse 86; Resp 18; Pulse Ox 96% ; db 18:30 BP 125 / 93; Pulse 88; Resp 16; Pulse Ox 95% ; db 13:37 Pain Scale: Adult cm10 MDM: 12:31 Medical Screening Exam initiated victor hugo 15:34 Differential diagnosis: contusion, tendonitis. Data reviewed: vital signs, nurses [facility] notes, lab test result(s), radiologic studies, CT scan, doppler, plain films. Consideration of Admission/Observation Patient was admitted/placed on observation. Escalation of care including admission/observation considered. I considered the following discharge prescriptions or medication management in the emergency department Medications were administered in the Emergency Department. See MAR. Independent interpretation of the following test(s) in the Emergency Department X-Ray: My interpretation is CXR. CT Scan: My interpretation is CT RO PE. Historians other than the Patient: Parent: MOM WELL INFORMED. Care significantly affected by the following chronic conditions: Obesity, INTELLECTUALLY DISABLED. Counseling: I had a detailed discussion with the patient and/or guardian regarding the historical points, exam findings, and any diagnostic results supporting the discharge/admit diagnosis, lab results, radiology results, the need for further work-up and treatment in the hospital. 02/13 12:32 Order name: CBC with Diff; Complete Time: 15:28 [facility] 02/13 12:32 Order name: CMP [facility] 02/13 12:32 Order name: Lipase [facility] 02/13 12:32 Order name: UA Rfx Natalio Cult if indicated [facility] 02/13 12:32 Order name: PREGU 02/13 13:42 Order name: ABG; Complete Time: 15:28 [facility] 02/13 15:28 Order name: COVID-19 Ag + Flu A+B Ag; Complete Time: 17:59 [facility] 02/13 17:53 Order name: NT PRO-BNP EDMS 02/13 17:53 Order name: CBC with Automated Diff EDMS 02/13 17:53 Order name: CBC with Automated Diff EDMS 02/13 17:53 Order name: Comprehensive Metabolic Panel EDMS 02/13 17:53 Order name: Comprehensive Metabolic Panel EDMS 02/13 17:53 Order name: Troponin High Sensitivity EDMS 02/13 17:53 Order name: Troponin High Sensitivity EDMS 02/13 17:53 Order name: Troponin High Sensitivity EDMS 02/13 17:54 Order name: Troponin High Sensitivity EDMS 02/13 21:45 Order name: NT PRO-BNP EDMS 02/13 12:32 Order name: US Extremity Venous W Compression Robert victor hugo 02/13 12:32 Order name: Chest Pa And Lat (2 Views) XRAY [facility] 02/13 13:42 Order name: CT Chest For PE Angio victor hugo 02/13 17:53 Order name: Echo with Doppler EDMS 02/13 17:53 Order name: Echo with Doppler EDMS Administered Medications: 15:18 Drug: NS 0.9% IV 500 ml 500 ml IV at 1 bolus once; to be given as a bolus over 30 db minutes Volume: 500 ml; Route: IV; Rate: 1 bolus; Site: left antecubital; 19:00 Follow up: IV Status: Completed infusion; IV Intake: 500ml rg5 17:00 Drug: Levalbuterol Inhalation 2.5 mg Inhalation once Route: Inhalation; db 17:00 Drug: Ipratropium Inhalation Aerosol 0.5 mg Inhalation once Route: Inhalation; db Disposition Summary: 02/13/25 15:41 Hospitalization Ordered Notes: Hospitalization Status: Inpatient Admission victor hugo Provider: Demian Nance cha Condition: Fair victor hugo Problem: new victor hugo Symptoms: have improved victor hugo Bed/Room Type: Standard victor hugo Location: Telemetry/MedSurg (Inpatient)(02/13/25 20:26) cm10 Room Assignment: 407(02/13/25 20:59) jb4 Diagnosis - Edema, unspecified victor hugo - Obesity, unspecified victor hugo - Hypoxemia victor hugo - Chronic respiratory failure with hypercapnia victor hugo - Mental disorder, not otherwise specified - INTELLECTUALLY CHALLANGED victor hugo Forms: - Medication Reconciliation Form victor hugo - SBAR form victor hugo - Leadership Thank You Letter victor hugo Signatures: Dispatcher [employer] EDMS Mauri Yoon MD MD cha Bryson, James, RN RN jb4 Herve Yanes RN RN jl7 Dahlia Gold, RN RN db Mima Murillo, RN RN cm10 Griffin Headley RN rg5 Corrections: (The following items were deleted from the chart) 15:29 15:29 COVID-19 Ag + Flu A+B Ag+I.LAB.BRZ ordered. EDNC EDMS 18:43 15:41 Telemetry/MedSurg (Inpatient) victor hugo jl7 18:43 15:41 victor hugo jl7 20:26 18:43 [facility] ER HOLD jl7 cm10 20:26 18:43 ERHOLD- jl7 cm10 20:59 20:26 402 cm10 jb4
--- NOTE | 2025-02-13 15:41 | ER ---
Nurse's Notes [facility] Name: Kita Sunshine Age: 29 yrs Sex: Female : 1995 Arrival Date: 02/13/2025 Time: 12:23 Bed 14 Private MD: Diagnosis: Edema, unspecified;Obesity, unspecified;Hypoxemia;Chronic respiratory failure with hypercapnia;Mental disorder, not otherwise specified-INTELLECTUALLY CHALLANGED Presentation: 02/13 13:37 Chief complaint: Patient states: bilateral feet swelling X3 days. pt reports pain with cm10 elevation. Coronavirus screen: Client denies travel out of the [place] in the last 14 days. Ebola Screen: Patient denies travel to an Ebola-affected area in the 21 days before illness onset. Initial Sepsis Screen: Does the patient meet any 2 criteria? No. Patient's initial sepsis screen is negative. Does the patient have a suspected source of infection? No. Patient's initial sepsis screen is negative. Risk Assessment: Do you want to hurt yourself or someone else? Patient reports no desire to harm self or others. Onset of symptoms was February 13, 2025. 13:37 Method Of Arrival: Ambulatory cm10 13:37 Acuity: KAREN 3 cm10 Triage Assessment: 13:38 General: Appears in no apparent distress. comfortable, Behavior is calm, cooperative. cm10 Neuro: No deficits noted. Level of Consciousness is awake, alert, obeys commands, Oriented to person, place, time, situation, Appropriate for age. Respiratory: No deficits noted. Airway is patent Respiratory effort is even, unlabored, Respiratory pattern is regular, symmetrical. Historical: - Allergies: 13:37 No Known Allergies; cm10 - PMHx: 13:37 Hyperlipidemia; Intellectually disabled; cm10 - PSHx: 13:37 Cholecystectomy; cm10 - Immunization history:: Adult Immunizations unknown. - Infectious Disease History:: Denies. - Social history:: Smoking status: Patient denies any tobacco usage or history of. Screenin:43 [facility] ED Fall Risk Assessment (Adult) History of falling in the last 3 months, db including since admission No falls in past 3 months (0 pts) Confusion or Disorientation No (0 pts) Intoxicated or Sedated No (0 pts) Impaired Gait No (0 pts) Mobility Assist Device Used No (0 pt) Altered Elimination No (0 pt) Score/Fall Risk Level 0 - 2 = Low Risk Oriented to surroundings, Maintained a safe environment. Abuse screen: Denies threats or abuse. Denies injuries from another. Nutritional screening: No deficits noted. Tuberculosis screening: No symptoms or risk factors identified. Assessment: 12:48 General: PT IN US. cm10 13:40 Reassessment: Patient appears in no apparent distress at this time. Patient and/or db family updated on plan of care and expected duration. Pain level reassessed. Patient is alert, oriented x 3, equal unlabored respirations, skin warm/dry/pink. 13:45 Reassessment: PT AMBULATORY TO RESTROOM. db 15:30 Reassessment: Patient and/or family updated on plan of care and expected duration. Pain db level reassessed. PT TEARFUL STATES WANTS TO EAT. Respiratory: Airway is patent Respiratory effort is even, unlabored, Respiratory pattern is regular, symmetrical. 16:35 Reassessment: Patient appears in no apparent distress at this time. Patient and/or db family updated on plan of care and expected duration. Pain level reassessed. Patient is alert, oriented x 3, equal unlabored respirations, skin warm/dry/pink. PT SITTING UP EATING FOOD. 18:35 Reassessment: Patient appears in no apparent distress at this time. Patient and/or db family updated on plan of care and expected duration. Pain level reassessed. Patient is alert, oriented x 3, equal unlabored respirations, skin warm/dry/pink. Neuro: Level of Consciousness is awake, alert, obeys commands, Oriented to person, place, time, situation. 19:10 General: Appears in no apparent distress. comfortable, Behavior is calm, cooperative. rg5 Pain: Complains of pain in left leg Quality of pain is described as aching. Neuro: Level of Consciousness is awake, alert, obeys commands, Oriented to person, place. Cardiovascular: Denies chest pain, Patient's skin is warm and dry. Respiratory: Airway is patent Trachea midline Respiratory effort is even, unlabored, Respiratory pattern is regular, symmetrical. 19:10 GI: No signs and/or symptoms were reported involving the gastrointestinal system. : rg5 No signs and/or symptoms were reported regarding the genitourinary system. EENT: No signs and/or symptoms were reported regarding the EENT system. Derm: Skin is intact, Skin is dry, Skin is normal. Musculoskeletal: Circulation, motion, and sensation intact. Range of motion: intact in all extremities, Swelling present in right leg and left leg. 20:00 Reassessment: No changes from previously documented assessment. Patient and/or family rg5 updated on plan of care and expected duration. Pain level reassessed. 21:00 Reassessment: No changes from previously documented assessment. Patient and/or family rg5 updated on plan of care and expected duration. Pain level reassessed. Patient is alert, oriented x 3, equal unlabored respirations, skin warm/dry/pink. Vital Signs: 13:37 BP 104 / 67; Pulse 75; Resp 16; Temp 97.7(O); Pulse Ox 90% on R/A; Weight 77.11 kg; cm10 Pain 2/10; 14:01 Pulse Ox 96% on R/A; db 15:00 BP 120 / 81; Pulse 86; Resp 18; Pulse Ox 96% ; db 18:30 BP 125 / 93; Pulse 88; Resp 16; Pulse Ox 95% ; db 13:37 Pain Scale: Adult cm10 ED Course: 12:26 Patient arrived in ED. cj3 12:31 Mauri Yoon MD is Attending Physician. victor hugo 13:21 US Extremity Venous W Compression Robert In Process Unspecified. EDMS 13:26 Chest Pa And Lat (2 Views) XRAY In Process Unspecified. EDMS 13:37 Triage completed. cm10 13:38 Arm band placed on right wrist. Patient placed in waiting room. cm10 13:59 Dahlia Gold, RN is Primary Nurse. db 14:35 Missed attempt(s): 22 gauge in right antecubital area. Bleeding controlled, band aid db applied, catheter tip intact. 14:51 Missed attempt(s): 22 gauge in left antecubital area. Bleeding controlled, band aid db applied, catheter tip intact. 15:38 Demian Nance is Hospitalizing Provider. victor hugo 17:01 Radiology exam delayed due to test not completed at this time. nj 17:43 Patient has correct armband on for positive identification. Bed in low position. Call db light in reach. Side rails up X 1. Client placed on continuous cardiac and pulse oximetry monitoring. NIBP monitoring applied. equipment monitor phototypesetting on. Pulse ox on. NIBP on. 19:10 Headley, Griffin, RN is Primary Nurse. rg5 19:10 No provider procedures requiring assistance completed. rg5 19:10 Patient admitted, IV remains in place. intact, No redness/swelling at site. rg5 19:15 Radiology exam delayed due to test not completed at this time. ls3 19:15 Radiology exam delayed due to IV insertion attempt and/or patient not having ls3 appropriate IV at this time. 21:01 Radiology exam delayed due to lab results not completed at this time. (HCG) jc4 test not completed at this time. 21:44 Provided Education on: needs for admit. rg5 Administered Medications: 15:18 Drug: NS 0.9% IV 500 ml 500 ml IV at 1 bolus once; to be given as a bolus over 30 db minutes Volume: 500 ml; Route: IV; Rate: 1 bolus; Site: left antecubital; 19:00 Follow up: IV Status: Completed infusion; IV Intake: 500ml rg5 17:00 Drug: Levalbuterol Inhalation 2.5 mg Inhalation once Route: Inhalation; db 17:00 Drug: Ipratropium Inhalation Aerosol 0.5 mg Inhalation once Route: Inhalation; db Medication: 21:44 VIS not applicable for this client. rg5 Intake: 19:00 IV: 500ml; Total: 500ml. rg5 Outcome: 15:41 Decision to Hospitalize by Provider. victor hugo 19:10 Admitted to ER Hold. Please see [facility] for further documentation. rg5 19:10 Condition: stable 19:10 Instructed on the need for admit, 21:48 Patient left the ED. rg5 Signatures: Dispatcher [employer] EDAR Mauri Yoon MD MD cha Jordan, Anurag Treviño ls3 Dahlia Gold, RN RN db Mima Murillo RN RN cm10 Griffin Headley, RN RN rg5 Isael De Leon jc4 Digna Miller 3
[2025-02-13] MEDS ORDERED: LEVALBUTEROL 1.25 MG/3 ML NEB ONE (16:38)
[2025-02-13] MEDS ORDERED: IPRATROPIUM BROM 0.5MG/2.5ML ONE (16:38)
[2025-02-13 17:08] LABS: Influenza A Ag Negative; Influenza B Ag Negative; SARS-CoV-2 Antigen Rapid Res Negative (Negative)
[2025-02-13] MEDS ORDERED: ONDANSETRON 4 MG/2 ML VIAL IV PRN (17:50)
--- NOTE | 2025-02-13 17:52 | P.HP ---
Certification for Inpatient Patient admitted to: Observation With expected LOS: <2 Midnights Patient will require the following post-hospital care: None Practitioner: I am a practitioner with admitting privileges, knowledge of patient current condition, hospital course, and medical plan of care. Services: Services provided to patient in accordance with Admission requirements found in Title 42 Section 412.3 of the Code of Federal Regulations Patient History Date of Service: 02/13/25 Reason for admission: Bilateral lower extremity swelling History of Present Illness: Patient is a 29-year-old female who is intellectually disabled, and she was brought into the hospital by her mother because her lower extremity was swollen. Patient had significant edema and patient was brought into the emergency room for further workup. Patient had multiple diagnostic studies in the ER which were unremarkable. Patient will be admitted as patient was hypoxic. Patient probably needs a sleep study as an outpatient. Oxygenation is improving. Echocardiogram pending. If this is negative then patient should be able to discharge with outpatient follow-up. Allergies No Known Drug Allergies Allergy (Verified 05/20/24 20:03) Unknown Home Medications: Albuterol Inhaler [Ventolin Inhaler*] 2 puff IH Q6H PRN #1 inh 12/11/24 Amox/Clavulanate [Augmentin 875-125 Tab] 875 mg PO BID 7 Days #14 tab 12/11/24 Azithromycin [Zithromax] 500 mg PO DAILY #5 tab 12/11/24 Benzonatate [Tessalon Perle*] 200 mg PO TID PRN #30 cap 12/11/24 - Past Medical/Surgical History Diabetic: No -: Intellectually disabled -: hypercholerstermia -: Cholecystectomy - Family History Father Family History: Reviewed- Non-Contributory - Social History Smoking Status: Never smoker Alcohol use: No CD- Drugs: No Review of Systems 10-point ROS is otherwise unremarkable Physical Examination - Vital Signs Temperature: 98 F Blood Pressure: 150/80 Pulse: 80 Respirations: 18 Pulse Ox (%): 95 - Physical Exam General: Alert, In no apparent distress, Oriented x3 HEENT: Atraumatic, PERRLA, Mucous membr. moist/pink, EOMI, Sclerae nonicteric Neck: Supple, 2+ carotid pulse no bruit, No LAD, Without JVD or thyroid abnormality Respiratory: Clear to auscultation bilaterally, Normal air movement Cardiovascular: Regular rate/rhythm, Normal S1 S2, No murmurs Gastrointestinal: Normal bowel sounds, Soft and benign, Non-distended, No tenderness Musculoskeletal: No clubbing, No swelling, No tenderness Integumentary: No rashes, Tenderness/swelling Neurological: Normal gait, Normal speech, Normal strength at 5/5 x4 extr, Normal tone, Sensation intact, Cranial nerves 3-12 intact, Normal affect Lymphatics: No axilla or inguinal lymphadenopathy - Studies Laboratory Data (last 24 hrs) 02/13/25 02/13/25 15:04 15:04 WBC 5.10 Hgb 15.2 H Hct 45.8 H Plt Count 170 Sodium 144 Potassium 3.9 BUN 23 H Creatinine 0.69 Glucose 95 Total Bilirubin 0.4 AST 54 H ALT 122 H Alkaline Phosphatase 169 H Lipase 25 Assessment & Plan - Problems (Diagnosis) (1) Hypoxic respiratory failure Current Visit: Yes Status: Acute (2) Intellectual disability Current Visit: Yes Status: Acute (3) Dyslipidemia Current Visit: Yes Status: Acute - Plan Plan: 1. Imaging studies have been unremarkable. Outpatient sleep study will be needed. 2. Echocardiogram pending. Continue with gentle diuresing at discharge. 3. Supportive care with family. They tend to be very involved 4. GI DVT prophylaxis Discharge Plan: Home Plan to discharge in: 24 Hours - Advance Directives Does patient have a Living Will: No Does patient have a Durable POA for Healthcare: No - Code Status/Comfort Care Code Status Assessed: Yes Code Status: Full Code Critical Care: No Time Spent Managing PTS Care (In Minutes): 40
--- NOTE | 2025-02-13 20:50 | RAD REPORT ---
EXAMINATION: US Extrem Venous W Compress Robert CLINICAL INDICATION: [facility] MAIN PAIN Bed: Y TECHNIQUE: Complete bilateral duplex sonography of the BILATERAL lower extremity veins was performed. The examination included compression for vein patency, color Doppler imaging and flow augmentation in response to distal compression of the distal external iliac, common femoral, femoral, popliteal, t ibial, and great and small saphenous veins. COMPARISON: No prior exam. FINDINGS: Duplex sonography testing of the veins of the BILATERAL lower extremity was performed. Color flow monse ging shows all veins to be compressible with [id number] color filling. Pulsatile and phasic flow is present within all lower extremity deep and superficial veins examined. IMPRESSION: There is no deep vein or superficial vein thrombosis.
--- NOTE | 2025-02-13 20:50 | RAD REPORT ---
EXAMINATION: TWO VIEW CHEST XR CLINICAL INDICATION: Female, 29 years old. [facility] MAIN COUGH Bed: TECHNIQUE: 2 view radiographs of the chest were performed. COMPARISON: 12/10/2024 FINDINGS: The lungs are well inflated and clear. No pneumothorax or sizable effusion. The heart is normal in si ze. Mediastinal contours are unremarkable. IMPRESSION: No acute or significant abnormalities.
[2025-02-13 22:04] VITALS: BMI 33.1
[2025-02-13 22:21] LABS: Specific Gravity 1.016 (1.005-1.030)
[2025-02-13 22:22] LABS: Specific Gravity 1.016 (1.005-1.030); Sqamous Epithelial <5 /HPF (None Seen); Urine Bacteria None Seen /HPF (<20); Urine Bilirubin NEGATIVE (Negative); Urine Blood Negative (Negative); Urine Clarity Clear (Clear); Urine Color Light-Yellow (Yellow); Urine Crystals Unidentified Few /HPF (None Seen); Urine Culture Reflex Order NOT NEEDED; Urine Glucose NEGATIVE (Negative); Urine Ketones NEGATIVE (Negative); Urine Microscopic Reflex YN ORDER UMIC; Urine Nitrite NEGATIVE (Negative); Urine Protein NEGATIVE (Negative); Urine RBC <5 /HPF (None Seen); Urine Urobilinogen Normal (Normal); Urine WBC Clump Rare /HPF (None Seen)
[2025-02-13 22:37] VITALS: O2SAT 95
[2025-02-13] MEDS: ACETAMINOPHEN 500 MG TAB PO PRN (23:34)
--- NOTE | 2025-02-14 10:15 | P.DS ---
Discharge Date: 02/14/25 Disposition: ROUTINE DISCHARGE Discharge Condition: GOOD Reason for Admission: Bilateral lower extremity swelling - Problems (1) Hypoxic respiratory failure Current Visit: Yes Status: Acute (2) Intellectual disability Current Visit: Yes Status: Acute (3) Dyslipidemia Current Visit: Yes Status: Acute Brief History of Present Illness: Patient is a 29-year-old female who is intellectually disabled, and she was brou ght into the hospital by her mother because her lower extremity was swollen. Patient had significant edema and patient was brought into the emergency room for further workup. Patient had multiple diagnostic studies in the ER which were unremarkable. Patient will be admitted as patient was hypoxic. Patient probably needs a sleep study as an outpatient. Oxygenation is improving. Echocardiogram pending. If this is negative then patient should be able to discharge with outpatient follow-up. Hospital Course: Patient has done well during her hospital stay. CT imaging was unremarkable. Echocardiogram is pending but if this is unremarkable patient should be able to go home. Will go over the results with the patient prior to discharge. Patient is overall doing well and should be stable for discharge home. Vital Signs/Physical Exam: Temp Pulse Resp BP Pulse Ox 98 F 80 18 150/80 H 95 02/14/25 10:13 02/14/25 10:13 02/14/25 10:13 02/14/25 10:13 02/14/25 10:13 General: Alert, In no apparent distress, Oriented x3 Laboratory Data at Discharge: WBC 5.10 thou/uL (4.3-10.9) 02/13/25 15:04 Hgb 15.2 g/dL (12.0-15.0) H 02/13/25 15:04 Hct 45.8 % (36.0-45.0) H 02/13/25 15:04 Plt Count 170 thou/uL (152-406) 02/13/25 15:04 Sodium 144 mEq/L (136-145) 02/13/25 15:04 Potassium 3.9 mEq/L (3.5-5.1) 02/13/25 15:04 BUN 23 mg/dL (7-18) H 02/13/25 15:04 Creatinine 0.69 mg/dL (0.55-1.02) 02/13/25 15:04 Glucose 95 mg/dL (74-106) 02/13/25 15:04 Total Bilirubin 0.4 mg/dL (0.2-1.0) 02/13/25 15:04 AST 54 U/L (15-37) H 02/13/25 15:04 ALT 122 U/L (13-56) H 02/13/25 15:04 Alkaline Phosphatase 169 U/L (45-117) H 02/13/25 15:04 Lipase 25 U/L (13-75) 02/13/25 15:04 Home Medications: Albuterol Inhaler [Ventolin Inhaler*] 2 puff IH Q6H PRN #1 inh 02/14/25 Amox/Clavulanate [Augmentin 875-125 Tab*] 875 mg PO BID 7 Days #14 tab 02/14/25 Benzonatate [Tessalon Perle*] 200 mg PO TID PRN #30 cap 02/14/25 New Medications: Amox/Clavulanate [Augmentin 875-125 Tab*] 875 mg PO BID 7 Days #14 tab Benzonatate [Tessalon Perle*] 200 mg PO TID PRN #30 cap PRN Reason: Cough Albuterol Inhaler [Ventolin Inhaler*] 2 puff IH Q6H PRN #1 inh PRN Reason: Shortness Of Breath Physician Discharge Instructions: -DC IV and DC home -Follow-up with PCP in 1 to 2 weeks -Follow-up with pulmonary for sleep study as an outpatient -Please call Dr. Rodrigues at [phone] if any questions regarding hospital stay -Please call nursing station at [phone] if any nursing or medication questions -Return to the emergency room if symptoms worsen Diet: Regular Activity: Fall precautions Followup: NONE,NONE [Primary Care Provider] - Time spent managing pt's care (in minutes): 35
--- NOTE | 2025-02-14 11:01 | RAD REPORT ---
EXAM: CT Chest For Pe Angio TECHNIQUE: CT angiogram of the chest was performed following intravenous contrast administration, inc luding sagittal and coronal as well as maximum intensity projection reformats. One or more of the following dose reduction techniques were used: Automated exposure control, adjustment of the mA and k V according to patient size, and iterative reconstruction. Unless otherwise specified, incidental findings do not require dedicated imaging follow-up. INDICATION: [facility] MAIN DYSPNEA Bed Name: [id number] Y COMPARISON: 12/10/2024. FINDINGS: LINES/TUBES: None. PULMONARY ARTERIES: Main pulmonary arteries are normal in caliber. No filling defects within the pul monary arteries to suggest pulmonary embolus. LUNGS AND AIRWAYS: Central airways are patent. Interval improvement of subsegmental dependent opaciti es bilaterally, favored to represent atelectasis. Persistent nodular opacities at both lung bases, which were at least partially obscured by the ongoing atelectasis, largest in the left posterior cost ophrenic angle measuring 3.0 x 1.4 cm. Some of the nodular opacities bilaterally may be progressive, including an ovoid juxtapleural right middle lobe 9 mm nodular opacity on axial image 67 , and a subsolid upper segment left lower lobe nodular opacity measuring 1 cm on axial image 37. Peribronchovascular upper segment right lower lobe confluent opacities largest measuring 11 mm on axi al image 47 are stable. PLEURA: No effusion or pneumothorax. HEART AND MEDIASTINUM: The visualized thyroid gland is normal. No mediastinal, hilar, or axillary lym phadenopathy. Heart is unremarkable. No pericardial effusion. SOFT TISSUES AND BONES: No acute osseous abnormality. Crescentic hyperdense focus along the lateral a spect of the spinal canal on the left at lower T5 level is unchanged. See axial image 54/127. UPPER ABDOMEN: Status post cholecystectomy.. IMPRESSION: No evidence of acute central pulmonary emboli. Persistent and progressive bilateral pulmonary nodules. Largest measures 3.0 cm in the left posterior costophrenic angle. Given this appearance, underlying malignancy should be considered. Other bibasilar subsegmental opacities improved since the prior exam, suggesting resolved atelectasis or infectious process. Crescentic hyperdense focus along the lateral aspect of the spinal canal opposite T5 level is unchang ed, and could represent a calcified meningioma versus vascular malformation.
[2025-02-14 11:31] LABS: Absolute Eosinophils 0.2 K/uL (0-0.5); Absolute Monocytes 0.3 K/uL (0.1-1.3); Absolute Neutrophil 2.7 K/uL (1.8-8.0); Basophils % 0.5 % (0-1.3); Eosinophils % 4.3 % (0-4.4); Hematocrit 40.8 % (36.0-45.0); Hemoglobin 13.5 g/dL (12.0-15.0); Lymphocytes % 38.1 % (15.3-44.8); MCH 29.1 pg (27.0-35.0); MCHC 33.1 g/dL (32.0-36.0); MPV 10.3 fL (7.6-11.3); Neutrophils % 52.1 % (41.7-73.7); Nucleated Red Blood Cells % 0.1 % (0-0); Platelets 183 thou/uL (152-406); RBC Red Blood Cell Count 4.64 M/uL (3.86-4.86); Red Cell Distribution Width 14.6 % (12.1-15.2)
[2025-02-14 12:42] VITALS: BP 95/59; TEMP 97.7
[2025-02-14 12:45] LABS: Albumin 3.1 g/dL (3.4-5.0); Albumin/Globulin Ratio 0.8 (1.1-1.8); Anion Gap 7.8 mEq/L (5.0-15.0); Bilirubin Total 0.4 mg/dL (0.2-1.0); Globulin 4.1 g/dL (2.3-3.5); Potassium 3.8 mEq/L (3.5-5.1); Protein, Total 7.2 g/dL (6.4-8.2); Troponin High Sensitivity 5.6 pg/mL (<58.9)
--- NOTE | 2025-02-14 14:26 | ECHO ---
HEIGHT: 5 ft 2 in WEIGHT: 170 lb 0 oz DATE OF STUDY: 02/14/[address]: Mk Rodrigues MD 2-DIMENSIONAL: YES M.MODE: YES DOPPLER: YES COLOR FLOW: YES TDS: NO PORTABLE: YES DEFINITY: NO BUBBLE STUDY: NO DIAGNOSIS: CONGESTIVE HEART FAILURE CARDIAC HISTORY: CATHERIZATION: SURGERY: PROSTHETIC VALVE: PACEMAKER: MEASUREMENTS (cm) DIASTOLIC (NORMALS) SYSTOLIC (NORMALS) IVSd 0.9 (0.6-1.2) LA Diam 2.8 (1.9-4.0) LVEF 60-65% LVIDd 3.4 (3.5-5.7) LVIDs 2.3 (2.0-3.5) %FS 32% LVPWd 1.0 (0.6-1.2) Ao Diam 2.8 (2.0-3.7) 2 DIMENSIONAL ASSESSMENT: RIGHT ATRIUM: NORMAL LEFT ATRIUM: NORMAL RIGHT VENTRICLE: NORMAL LEFT VENTRICLE: NORMAL TRICUSPID VALVE: TRACE TRICUSPID REGURGITATION MITRAL VALVE: NORMAL PULMONIC VALVE: NORMAL AORTIC VALVE: NORMAL PERICARDIAL EFFUSION: NONE AORTIC ROOT: NORMAL LEFT VENTRICULAR WALL MOTION: NORMAL. DOPPLER/COLOR FLOW: NORMAL. COMMENTS: 1. NORMAL LEFT VENTRICULAR SYSTOLIC FUNCTION. LEFT VENTRICULAR EJECTION FRACTION 60-65%. NORMAL WALL MOTION. 2. NORMAL DIASTOLIC FUNCTION. TECHNOLOGIST: ALEJA WILSON
== END 2025-02-14 16:06 | disposition home or self-care (01) ==
LOC: ER 12:23 → ERHOLD 17:50 → 4TH 21:14
PROVIDERS: ADMIT Hospitalist; ATTEND Hospitalist
DX: J96.01 Acute respiratory failure with hypoxia (principal); R22.43 Localized swelling, mass and lump, lower limb, bilateral; F79 Unspecified intellectual disabilities; E78.5 Hyperlipidemia, unspecified; E66.9 Obesity, unspecified; Z68.31 Body mass index [BMI] 31.0-31.9, adult; Z11.52 Encounter for screening for COVID-19
CPT/HCPCS: 96361; 93306; 85025 ×2; 81001; 36415; 81025; 84484; 83690; 80053 ×2; 83880; 71275; 71046; 93970; 82805; 96360; 99285; 87428; 36600; Q9967; J7614; J7644; J7040; G0378

== ENCOUNTER 2025-07-30 13:40 | Emergency (ER) | payer OTHER ==
--- NOTE | 2025-07-30 14:50 | RAD REPORT ---
EXAMINATION: Ankle Right 3 View CLINICAL INDICATION: Female, 29 years old. Pain;Swelling COMPARISON: No prior exam. FINDINGS: No acute fracture. No malalignment/dislocation. No significant focal degenerative change. Other: n/a IMPRESSION: No acute osseous abnormality.
--- NOTE | 2025-07-30 14:53 | RAD REPORT ---
EXAM: Foot Right 3 View HISTORY: Pain;Swelling COMPARISON: None FINDINGS: Bones: No acute fracture identified. Alignment:No significant malalignment. Degenerative changes:None significant. Other: n/a IMPRESSION: No acute osseous abnormality.
--- NOTE | 2025-07-30 15:08 | ER ---
Nurse's Notes [facility] Name: Kita Sunshine Age: 29 yrs Sex: Female : 1995 Arrival Date: 07/30/2025 Time: 13:40 Bed 17 Private MD: Diagnosis: Sprain of ankle Presentation: 07/30 13:34 Chief complaint: EMS states: RIGHT FOOT, ANKLE PAIN STARTED TODAY. ANKLE FRACTURE ON db RIGHT FOOT 1 MONTH AGO. PT HAS INTELLECTUAL DISABILITY. Coronavirus screen: Client denies travel out of the [place] in the last 14 days. At this time, the client does not indicate any symptoms associated with coronavirus-19. Ebola Screen: Patient negative for fever greater than or equal to 101.5 degrees Fahrenheit, and additional compatible Ebola Virus Disease symptoms Patient denies exposure to infectious person. Patient denies travel to an Ebola-affected area in the 21 days before illness onset. No symptoms or risks identified at this time. Initial Sepsis Screen: Does the patient meet any 2 criteria? No. Patient's initial sepsis screen is negative. Does the patient have a suspected source of infection? No. Patient's initial sepsis screen is negative. Risk Assessment: Do you want to hurt yourself or someone else? Patient reports no desire to harm self or others. Onset of symptoms was July 30, 2025. Care prior to arrival: Medication(s) given: Tylenol, 975 MG. 13:34 Method Of Arrival: EMS: [facility] db 13:34 Acuity: KAREN 3 db Triage Assessment: 13:34 General: Appears in no apparent distress. comfortable, Behavior is calm, cooperative. db Pain: Complains of pain in right foot and anterior aspect of right ankle. Respiratory: Airway is patent Respiratory effort is even, unlabored, Respiratory pattern is regular, symmetrical. Musculoskeletal: Circulation, motion, and sensation intact. Capillary refill < 3 seconds, Range of motion: limited in right ankle Reports pain in right foot. 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 - Infectious Disease History:: Denies. - Social history:: Smoking status: Patient denies any tobacco usage or history of. Screenin:52 [place] [facility] Fall Risk Assessment (Adult) Confusion or Disorientation No (0 pts) kj2 Intoxicated or Sedated No (0 pts) Impaired Gait Yes (1 pt) Mobility Assist Device Used Yes (1 pt) Altered Elimination No (0 pt) Score/Fall Risk Level 0 - 2 = Low Risk Maintained a safe environment, Hourly rounding (assess needs \T\ fall precautionary measures) done. Abuse screen: Denies threats or abuse. Denies injuries from another. Nutritional screening: No deficits noted. Tuberculosis screening: No symptoms or risk factors identified. 13:53 [place] [facility] Fall Risk Assessment (Adult) History of falling in the last 3 months, kj2 including since admission. Assessment: 13:51 General: Appears in no apparent distress. uncomfortable. Pain: Complains of pain in kj2 right ankle Pain currently is 6 out of 10 on a pain scale. Neuro: Level of Consciousness is awake, alert, obeys commands, Oriented to person, place, situation. Cardiovascular: Patient's skin is warm and dry. Respiratory: Airway is patent Respiratory effort is unlabored. GI: No signs and/or symptoms were reported involving the gastrointestinal system. : No signs and/or symptoms were reported regarding the genitourinary system. Musculoskeletal: Reports pain in right ankle. 14:59 Reassessment: Patient appears in no apparent distress at this time. kj2 Vital Signs: 13:34 BP 124 / 74; Pulse 96; Resp 18; Temp 98.2; Pulse Ox 99% on R/A; db 14:59 BP 119 / 67; Pulse 88; Resp 20; Temp 98; Pulse Ox 100% on R/A; kj2 ED Course: 13:34 Arm band placed on Patient placed in an exam room. db 13:42 Patient arrived in ED. zm 13:42 Niles Looney FNP-C is [facility]. dr5 13:42 Nick Souza DO is Attending Physician. dr5 13:49 Valeria Pedersen, DIPAK is Primary Nurse. kj2 13:50 Triage completed. db 13:54 Patient has correct armband on for positive identification. Bed in low position. Call kj2 light in reach. Provided Education on: call light. 14:43 Ankle Right 3 View XRAY In Process Unspecified. EDMS 14:43 Foot Right 3 View XRAY In Process Unspecified. EDMS 14:58 No provider procedures requiring assistance completed. kj2 14:58 IV discontinued, intact, bleeding controlled, No redness/swelling at site. Pressure kj2 dressing applied. Administered Medications: No medications were administered Medication: 13:52 VIS not applicable for this client. kj2 Outcome: 14:58 Discharged to home via wheelchair, with family, kj2 14:58 Condition: stable 14:58 Discharge instructions given to patient, family, Instructed on discharge instructions, follow up and referral plans. Demonstrated understanding of instructions, follow-up care, 15:07 Discharge ordered by . dr5 15:27 Patient left the ED. kj2 Signatures: Dispatcher [employer] Patrizia Woods, RN RN Dahlia Deleon RN RN Valeria Lagos RN RN kj2 Niles Looney, TYPING CHECKER-C TYPING CHECKER-Cdr5
--- NOTE | 2025-07-30 15:08 | EDPHYS ---
Physician Documentation [facility] Name: Kita Sunshine Age: 29 yrs Sex: Female : 1995 Arrival Date: 07/30/2025 Time: 13:40 Bed 17 Private MD: ED Physician Nick Souza HPI: 07/30 17:50 This 29 yrs old Female presents to ER via EMS with complaints of Ankle Injury. dr5 17:50 Patient is a 29-year-old female with history of hyperlipidemia and Down syndrome coming dr5 in with right ankle pain and swelling after hitting it on step on accident. Patient denies hitting her head or falling, or on blood thinners. Patient reports that she had fracture approximately month ago. Mauro wrap was applied prior to arrival by EMS.. 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 - Infectious Disease History:: Denies. - Social history:: Smoking status: Patient denies any tobacco usage or history of. ROS: 17:50 Constitutional: as per hpi dr5 Exam: 17:50 Constitutional: This is a well developed, well nourished patient who is awake, alert, dr5 and in no acute distress. Vital Signs: 13:34 BP 124 / 74; Pulse 96; Resp 18; Temp 98.2; Pulse Ox 99% on R/A; db 14:59 BP 119 / 67; Pulse 88; Resp 20; Temp 98; Pulse Ox 100% on R/A; kj2 Procedures: 17:50 Splinting: Splint applied to right ankle using mauro wrap, applied by nurse. Examined by dr5 me, post splint application: neurovascular intact, 2+ distal pulses palpable, brisk capillary refill noted, Patient tolerated well. MDM: 13:43 Medical Screening Exam initiated dr5 17:50 Differential Diagnosis Contusion, abrasion, fracture. Data reviewed: vital signs, dr5 nurses notes, radiologic studies. Consideration of Admission/Observation Escalation of care including admission/observation considered. Escalation considered patient found to have fracture. I considered the following discharge prescriptions or medication management in the emergency department I discussed and recommended Over The Counter medications. Independent interpretation of the following test(s) in the Emergency Department X-Ray: My interpretation is Independent interpretation of ankle x-ray does not reveal fracture. Historians other than the Patient: EMS: Like [facility]. Parent: Father. Care significantly affected by the following chronic conditions: Hyperlipidemia. Care significantly affected by the following Social Determinants of Health: Poor access to healthcare and/or lack of insurance, Poor access to transportation, Problems related to employment. Counseling: I had a detailed discussion with the patient and/or guardian regarding the historical points, exam findings, and any diagnostic results supporting the discharge/admit diagnosis, the presence of at least one elevated blood pressure reading (>120/80) during this emergency department visit, radiology results, the need for outpatient follow up, for definitive care, a family practitioner, to return to the emergency department if symptoms worsen or persist or if there are any questions or concerns that arise at home. Special discussion: I discussed with the patient/guardian in detail that at this point there is no indication for admission to the hospital. It is understood, however, that if the symptoms persist or worsen the patient needs to return immediately for re-evaluation. Based on the history and exam findings, there is no indication for further emergent testing or inpatient evaluation. I discussed with the patient/guardian the need to see the orthopedic surgeon for further evaluation of the symptoms. I discussed with the patient/guardian the need to see the primary care provider for further evaluation of the symptoms. ED course: Mauro wrap applied in ER. Recommend patient follow-up primary care doctor and orthopedics as needed. All questions answered. Strict ER precautions given. No fracture noted on x-rays. 07/30 13:43 Order name: Ankle Right 3 View XRAY; Complete Time: 14:53 dr5 07/30 13:43 Order name: Foot Right 3 View XRAY; Complete Time: 14:54 dr5 Administered Medications: No medications were administered Disposition: 18:14 I was immediately available on-site in the Emergency Department for consultation in the az3 care of the patient. Disposition Summary: 07/30/25 15:07 Discharge Ordered Notes: Location: Home dr5 Condition: Stable dr5 Diagnosis - Sprain of ankle dr5 Followup: dr5 - With: Emergency Department - When: As needed - Reason: Worsening of condition Followup: dr5 - With: Private Physician - When: 1 - 2 days - Reason: Recheck today's complaints, Continuance of care, Re-evaluation by your physician Discharge Instructions: - Discharge Summary Sheet dr5 - RICE Therapy for Routine Care of Injuries dr5 - Ankle Sprain, [id number] dr5 Forms: - Medication Reconciliation Form dr5 - Antibiotic Education dr5 - Prescription Opioid Use dr5 - Leadership Thank You Letter dr5 Prescriptions: - Ibuprofen 800 mg Oral Tablet - take 1 tablet ORAL route every 12 hours As needed take with food; 20 tablet; dr5 Refills: 0, Product Selection Permitted Signatures: Dispatcher [employer] EDMS Nick Souza, DO ms3 Dahlia Gold, RN RN db Niles Looney, WEATHERIZATION TECHNICIAN-C WEATHERIZATION TECHNICIAN-Cdr5
[2025-07-30 15:31] VITALS: BP 119/67; TEMP 98; O2SAT 100
== END 2025-07-30 15:27 | disposition home or self-care (01) ==
LOC: ER 13:40
DX: S93.401A Sprain of unspecified ligament of right ankle, initial encounter (principal)
CPT/HCPCS: 99283